=== PATIENT | female | born 1985 | race Caucasian/White ===

== ENCOUNTER 2019-05-21 10:22 | Inpatient (IN) | payer MEDICARE, OTHER, SELFPAY ==
[2019-05-21] VITALS (15 sets, daily range): BP systolic 113–142; BP diastolic 54–94; PULSE 83–117; RESP 11–23; TEMP 36.3–37.3; O2SAT 94–100; BMI 28.0
--- NOTE | 2019-05-21 | PATH_ITS ---
[facility] Accession Number: [id number] . 01 Material submitted: . appendix - APPENDIX . 01 Clinical history: . APPENDICITIS POSSIBLE . 02 Diagnosis: Appendix, Appendectomy: Acute suppurative appendicitis with transmural necrosis and serositis. Negative for dysplasia and malignancy. MRV 05/26/2019 1020 Local . 02 Electronically signed: . Margareth Dunn MD, Pathologist NPI- [id number] . 01 Gross description: . Received in formalin, labeled appendix, is an apparently ruptured appendix (length-6.5 cm, diameter-0.9 cm) with burgos, partially exudate-covered, and eroded serosa with attached mesoappendix (up to 1.0 cm in depth). The resection margin is received stapled. The lumen contains brown solid soft material. The wall is up to 0.2 cm thick. No nodules, masses or lesions are identified. The resection margin is inked blue. Section code: (A1) resection margin en face and three surgical sales representative serial sections; (A2) one-half of the bivalved tip. ([id number]) /MRV 05/23/2019 1145 Local . 02 Pathologist provided ICD-10: K35.20 . 02 CPT . 331124 Performed at: 01 [facility] [address], [place], [place] [id number] MD Dionisio Barajas MD Phone: [phone] Performed at: 02 [facility] [address] [place], [place] [id number] MD Margareth Dunn MD Phone: [phone]
[2019-05-21 12:13] LABS: Add Manual Diff / Slide Review NO; Basophils Absolute Auto 100 /uL (0-100); Basophils Percent Auto 0.3 % (0-2); Eosinophils Absolute Auto 0 /uL (0-450); Eosinophils Percent Auto 0.1 % (2-4); Hematocrit 39.7 % (36-46); Hemoglobin 12.9 g/dL (12.0-16.0); Lymphocytes Absolute Auto 600 /uL (1100-4500); Lymphocytes Percent Auto 2.7 % (25-40); Mean Corpuscular HGB Conc 32.4 % (30-36); Mean Corpuscular Hemoglobin 27.3 PG (26-34); Mean Corpuscular Volume 84.1 fL (80-100); Monocytes Absolute Auto 800 /uL (0-900); Monocytes Percent Auto 3.9 % (3-14); Neutrophils Absolute Auto 20000 /uL (1500-7000); Platelet Count 321 X10^3/uL (150-400); Red Blood Cell Count 4.73 X10^6/uL (4.0-5.2); Red Cell Distribution Width 13.8 % (11.6-14.8); White Blood Cell Count 21.5 X10^3/uL (4.5-11.0)
[2019-05-21 12:17] LABS: INR 1.3 (0.9-1.3); Prothrombin Time 14.8 SECONDS (10.1-12.7)
[2019-05-21 12:20] LABS: PTT Partial Thromboplastin Tim 31 SECONDS (26.4-36.2)
[2019-05-21 12:22] LABS: Alanine Aminotransferase 10 IU/L (<35); Albumin 4.3 g/dL (3.5-5.0); Albumin Globulin Ratio 1.5 (1.0-2.8); Alkaline Phosphatase 105 U/L (38-126); Aspartate Aminotransferase 17 IU/L (14-36); Bilirubin Total 0.5 mg/dL (0.2-1.3); Blood Urea Nitrogen 7 mg/dL (7-17); Calcium 9.2 mg/dL (8.4-10.2); Carbon Dioxide 23 mmol/L (22-32); Chloride 107 mmol/L (98-107); Estimated Glomerular Filt Rate > 60.0 mL/min (>60); Globulin 2.9 g/dL (1.7-4.1); Glucose 130 mg/dL (70-100); HEMOLYSIS < 15 (0-50); Lipase 47 U/L (23-300); Potassium 3.5 mmol/L (3.4-5.1); Sodium 141 mmol/L (137-145); Total Protein 7.2 g/dL (6.3-8.2)
--- NOTE | 2019-05-21 12:46 | DI.CT.S_ITS ---
PROCEDURE: CT ABDOMEN PELVIS W CON INDICATIONS: RLQ pain, vomiting, high WBC TECHNIQUE: After the administration of intravenous contrast, 5 mm thick sections acquired from the diaphragm to the symphysis. 5 mm coronal and sagittal reformats were acquired. For radiation dose reduction, the following was used: automated exposure control, adjustment of mA and/or kV according to patient size. COMPARISON: None. FINDINGS: Image quality: Excellent. ABDOMEN: Lung bases: Lung bases are clear. Heart size is normal. Solid organs: Liver is normal in size and enhancement. Gallbladder is surgically absent. Biliary system is non dilated. Pancreas enhances normally. Spleen is normal in size and enhancement. No adrenal nodules. Kidneys demonstrate normal size and enhancement, without hydronephrosis. Peritoneum and bowel: Post surgical changes compatible with prior gastric bypass procedure noted. Bowel loops demonstrate normal wall thickness and caliber. The fetus is enlarged 1.6 cm. There is a 0.5 x 0.9 cm appendicolith in the appendix. Inflammatory changes and free fluid noted adjacent to the appendix. Small amount of free fluid in the cul-de-sac of the pelvis. No definite free intraperitoneal air. Nodes and vessels: No retroperitoneal or mesenteric adenopathy by size criteria. Aorta and inferior vena cava are normal in size. Miscellaneous: No ventral hernias. PELVIS: Genitourinary: Bladder wall thickness is normal. Miscellaneous: No inguinal hernias or adenopathy. Bones: No suspicious bony lesions. No vertebral body compression fractures. IMPRESSION: 1. Findings compatible with acute appendicitis. There is a large appendicolith within the dilated/inflamed appendix. 2. Moderate amount of free fluid in the right lower quadrant in the region of appendicitis. Dictated by: Nova Baltazar MD, PhD on 05/21/2019 at 14:03 Approved by: Nova Baltazar MD, PhD on 05/21/2019 at 14:09
[2019-05-21] MEDS: ONDANSETRON 4 MG/2 ML INJ IV ×2 (13:09→18:08)
[2019-05-21] MEDS: SODIUM CHLORIDE 0.9% 500 ML 1000 ML IV (13:10)
[2019-05-21] MEDS: KETOROLAC 60 MG/2 ML VIAL 30 MG IV (13:10)
[2019-05-21 13:11] LABS: Pregnancy Test Serum,Qual Negative (Negative)
[2019-05-21 13:12] LABS: Lactate (Lactic Acid) 1.2 mmol/L (0.7-2.1)
[2019-05-21 13:53] LABS: Bacteria Urine None Seen; WBC Urine None Seen (0-5/HPF)
[2019-05-21 14:01] LABS: RBC Urine 5-10/HPF (0-5/HPF)
[2019-05-21 14:02] LABS: Culture Indicated Urine Cult Not Indicated; Mucus Urine 1+ (Negative); Squamous Epithelial Cell Urine 1-5 /HPF (0-5/HPF)
--- NOTE | 2019-05-21 14:16 | ED.ABDPAIN ---
HPI - Abdominal Pain <Los GUIDO Palma - Last Filed: 05/21/19 16:24> General Chief Complaint: Abdominal Pain Stated Complaint: appendicitis possible Time Seen by Provider: 05/21/19 12:14 Source: patient Mode of arrival: Ambulatory Limitations: no limitations History of Present Illness HPI narrative: This is a 34-year-old female, nonsmoker, who presents to ED with right lower quadrant pain for 3 days. Patient has a history of cholecystectomy, right-sided PCOS, kidney stone and gastric bypass. Patient reports nausea, vomiting, diarrhea, chills, feeling sweaty, dizziness. Patient is unsure of fever. Patient reports had 3 episodes of emesis and 6 episodes of diarrhea since she had checked in to ER today. Patient denies blood in stool or emesis and emesis is like bile-like. Patient reports significantly decreased urinary output for last couple of days due to feeling dehydrated. Patient denies other urinary symptoms or unusual vaginal discharge Patient reports pain increases with movement and picking up her toddler son. Patient denies ill contacts. LMP was 04/23/2019 and currently receives Depo injection and last injection was05/01/19. Related Data Home Medications Medication Instructions Recorded Confirmed Mynatal 1 cap PO DAILY #0 07/10/17 05/21/19 cholecalciferol (vitamin D3) 0 unit PO DAILY #0 07/10/17 05/21/19 [Vitamin D3] diphenhydramine HCl [Benadryl 25 mg PO PRN PRN #0 07/10/17 05/21/19 Allergy] docusate sodium 100 mg PO BIDP PRN #0 07/10/17 05/21/19 montelukast [Singulair] 10 mg PO DAILY #0 07/10/17 05/21/19 ondansetron HCl 4 mg PO Q4HP PRN #0 07/10/17 05/21/19 pantoprazole [Protonix] 20 mg PO DAILY #0 07/10/17 05/21/19 simethicone [Gas-X Extra Strength] 125 mg PO PRN PRN #0 07/10/17 05/21/19 vitamin B complex [B 1 tab PO DAILY #0 07/10/17 05/21/19 Complex-Vitamin B12] brexpiprazole [Rexulti] 1 mg PO DAILY 05/21/19 05/21/19 diazepam 5 mg PO TID PRN 05/21/19 05/21/19 fluoxetine 40 mg PO QPM 05/21/19 05/21/19 oxcarbazepine 300 mg PO QPM 05/21/19 05/21/19 Allergies Allergy/AdvReac Type Severity Reaction Status Date / Time aripiprazole [From ABILIFY] Allergy Intermediate Verified 05/21/19 10:34 carbamazepine [From TEGRETOL] Allergy Intermediate Verified 05/21/19 10:34 divalproex sodium Allergy Intermediate Verified 05/21/19 10:34 [From DEPAKOTE] lithium [LITHIUM] Allergy Intermediate Verified 05/21/19 10:34 lurasidone [From LATUDA] Allergy Intermediate Verified 05/21/19 10:34 morphine [MORPHINE] Allergy Intermediate Verified 05/21/19 10:34 sulfamethoxazole Allergy Intermediate Verified 05/21/19 10:34 [From BACTRIM] tramadol [TRAMADOL] Allergy Intermediate Verified 05/21/19 10:34 trimethoprim [From BACTRIM] Allergy Intermediate Verified 05/21/19 10:34 Review of Systems <GUIDO Ramírez - Last Filed: 05/21/19 16:24> Review of Systems Narrative: General: See HPI HEENT: Denies sinus pain, ear pain, sore throat, difficulty swallowing, dizziness. Respiratory: Denies dyspnea, cough, wheezing, hemoptysis, sputum. Cardiovascular: Denies chest pain, palpitations, orthopnea, edema. Gastrointestinal: See HPI : Reports decreased urine output. Denies dysuria, frequency, incontinence, hematuria, urinary retention. Musculoskeletal: Denies weakness, joint pain or bony pain. Skin: Denies rash, skin lesions, or other. Neurologic: Denies weakness, headache, numbness, change in speech, confusion, seizures, incoordination. Psychiatric: No concerning psychosocial issues. 12-point review of systems is negative except for those stated above. Patient History <GUIDO Ramírez - Last Filed: 05/21/19 16:24> Medical History delivery delivered (Acute) Epilepsy (Acute) Surgical History Gastric bypass status for obesity (Acute) Hx of cholecystectomy (Acute) Social History (Updated 05/21/19 @ 14:32 by GUIDO Ramírez) household members: children Smoking Status: Former smoker alcohol intake: current Exam <GUIDO Ramírez - Last Filed: 05/21/19 16:24> Narrative Exam Narrative: GEN: Alert, oriented x 3, well appearing and nourished, and in no acute distress. Head: Normal cephalic, atraumatic. No scalp or temporal tenderness, palpable mass or rash. EYES: Pupils are equal, round, and reactive to light and accommodation. Extraocular muscles are intact bilaterally. There is no subconjunctival hemorrhage, exudate and sclera non-icteric. ENT: Bilateral auditory canals and tympanic membranes clear. Hearing grossly intact. Nose without bleeding, purulent discharge or deviation. Facial sinuses nontender to palpate. Mucous membrane moist, no mucosal lesion. Throat without erythema, tonsillar hypertrophy or exudate. Uvula in midline, airway patent. Neck: Trachea in midline. No JVD, non-tender without lymphadenopathy. No masses or thyroid megaly. Supple, non-tender and no meningeal signs. CARDIAC: Normal regular rate and rhythm without murmurs, gallops, or rubs. No chest wall tenderness. No peripheral edema, cyanosis or pallor. Capillary refill is less than 2 seconds. RESPIRATORY: Lungs are clear to auscultate bilaterally. No cough, wheezes, rales, or rhonchi. No stridor, respiratory distress, increase work of breathing, or accessary muscle used. ABD: Abdomen soft and non-distended. Guarding and rebound tenderness to palpate in RLQ. Negative Mendez's sign. Bowel sounds are normal in all 4 quadrants. There is no palpable masses or organomegaly. EXT: Full painless ROM of all extremities with no loss of sensation, strength, effusion or edema. SKIN: Warm, dry, normal color for patient. No erythema, lesions or rash over visible areas. BACK: Nontender without deformity or crepitance. No flank tenderness. NEUROLOGICAL: Alert and oriented to place, time and person. Sensation and motor function intact bilaterally. No facial droops, dysphasia. PSYCHIATRIC: Good judgement and reason, without hallucinations, abnormal affect or abnormal behaviors during the examination. Patient is not suicidal. Initial Vital Signs Initial Vital Signs: Vital Signs Temperature 98.0 F 05/21/19 10:34 Pulse Rate 111 H 05/21/19 10:34 Respiratory Rate 16 05/21/19 10:34 Blood Pressure 132/94 H 05/21/19 10:34 Pulse Oximetry 100 05/21/19 10:34 <Maricarmen Obrien MD - Last Filed: 05/21/19 19:00> Initial Vital Signs Initial Vital Signs: Vital Signs Temperature 98.0 F 05/21/19 10:34 Pulse Rate 111 H 05/21/19 10:34 Respiratory Rate 16 05/21/19 10:34 Blood Pressure 132/94 H 05/21/19 10:34 Pulse Oximetry 100 05/21/19 10:34 Course <GUIDO Ramírez - Last Filed: 05/21/19 16:24> Course Course Narrative: Radiologist called to inform the CT result for concerning appy at 1407 Orders Ordered: ED Orders 05/21/19 10:35 EKG-12 Lead Stat 05/21/19 12:05 Complete Blood Count AUTO DIFF Stat Comprehensive Metabolic Panel Stat Lactate (Lactic Acid) Stat Lipase Stat Partial Thromboplastin Time Stat Test Serum,Qual Stat Prothrombin Time INR Stat 05/21/19 12:46 CT abdomen pelvis w con Stat 05/21/19 13:00 GI Panel (Film Array) Stat Urine Microscopic Stat 05/21/19 15:38 Consult to SEXOLOGIST - Oil Processing Technician Stat 05/21/19 17:49 Education, smoking cessation ONGOING 05/22/19 05:00 BMP [Basic Metabolic Panel] DAILY CBC Auto Diff [Complete Blood Count AUTO DIFF] DAILY Magnesium DAILY 05/23/19 05:00 BMP [Basic Metabolic Panel] DAILY CBC Auto Diff [Complete Blood Count AUTO DIFF] DAILY Magnesium DAILY 05/24/19 05:00 BMP [Basic Metabolic Panel] DAILY CBC Auto Diff [Complete Blood Count AUTO DIFF] DAILY Magnesium DAILY Diazepam (Valium) 5 mg PO TID PRN PRN Reason: Anxiety Docusate Sodium (Colace) 100 mg PO BID PRN PRN Reason: Constipation Duloxetine HCl (Cymbalta) 30 mg PO DAILY MICAELA Fluoxetine HCl (Prozac) 40 mg PO BEDTIME MICAELA Hydromorphone HCl (Dilaudid) 0.5 mg IV Q4H PRN PRN Reason: Pain, Moderate (4-6) Hydromorphone HCl (Dilaudid) 1 mg IV Q6HR PRN PRN Reason: Pain, Severe (7-10) Last Admin: 05/21/19 18:08 Dose: 1 mg Documented by: PRISCILLA Lactated Ringer's (Lactated Ringers) 1,000 mls @ 100 mls/hr IV CONT MICAELA Last Admin: 05/21/19 18:16 Dose: 100 mls/hr Documented by: PRISCILLA Lamotrigine (Lamictal) 100 mg PO BID MICAELA Montelukast Sodium (Singulair) 10 mg PO DAILY MICAELA Nf - Brexpiprazole ( (Rexulti) 1 Mg) 1 mg PO DAILY MICAELA Ondansetron HCl (Zofran) 4 mg IV Q4HR PRN PRN Reason: Nausea And Vomiting Last Admin: 05/21/19 18:08 Dose: 4 mg Documented by: PRISCILLA Oxcarbazepine (Trileptal) 300 mg PO BEDTIME MICAELA Pantoprazole Sodium (Protonix) 20 mg PO DAILY MICAELA Discontinued Medications Fluoxetine HCl (Prozac) 40 mg PO QPM MICAELA Hydromorphone HCl (Dilaudid) 0.5 mg IV NOW ONE Stop: 05/21/19 14:18 Last Admin: 05/21/19 14:30 Dose: 0.5 mg Documented by: AURORA Hydromorphone HCl (Dilaudid) 1 mg IV Q6HR PRN PRN Reason: Pain, Severe (7-10) Sodium Chloride (Normal Saline 0.9%) 500 mls @ 1,000 mls/hr IV BOLUS ONE Stop: 05/21/19 13:15 Last Infusion: 05/21/19 14:01 Dose: 0 mls/hr Documented by: Admin: 05/21/19 13:10 Dose: 1,000 mls/hr Documented by: AURORA Piperacillin/Tazobactam/Dextrose (Zosyn) 3.375 gm in 50 mls @ 100 mls/hr IV NOW ONE Stop: 05/21/19 15:20 Last Admin: 05/21/19 15:04 Dose: 100 mls/hr Documented by: AURORA Sodium Chloride (Normal Saline 0.9%) 1,000 mls @ 150 mls/hr IV CONT MICAELA Last Infusion: 05/21/19 18:17 Dose: 0 mls/hr Documented by: Admin: 05/21/19 15:04 Dose: 150 mls/hr Documented by: AURORA Ketorolac Tromethamine (Toradol) 30 mg IV NOW ONE Stop: 05/21/19 12:47 Last Admin: 05/21/19 13:10 Dose: 30 mg Documented by: AURORA Ondansetron HCl (Zofran) 4 mg IV NOW ONE Stop: 05/21/19 12:47 Last Admin: 05/21/19 13:09 Dose: 4 mg Documented by: AURORA Ondansetron HCl (Zofran Odt) 4 mg PO Q4H PRN PRN Reason: Nausea Oxcarbazepine (Trileptal) 300 mg PO QPM COUNTS INCLUDE 234 BEDS AT [facility] Reevaluation(s) Reevaluation #1: Improved nausea but pain still remaining Time: 13:55 Consultations Consultation #1: Dr. Sanchez for [facility] Time: 14:07 Vital Signs Vital signs: Vital Signs - 8 hr 05/21/19 11:58 05/21/19 14:12 05/21/19 15:05 Pulse Rate 83 87 87 Respiratory Rate 16 23 18 Blood Pressure [Left Arm] 113/54 L 130/72 134/84 Pulse Oximetry 100 98 99 <Maricarmen Obrien MD - Last Filed: 05/21/19 19:00> Orders Ordered: ED Orders 05/21/19 10:35 EKG-12 Lead Stat 05/21/19 12:05 Complete Blood Count AUTO DIFF Stat Comprehensive Metabolic Panel Stat Lactate (Lactic Acid) Stat Lipase Stat Partial Thromboplastin Time Stat Test Serum,Qual Stat Prothrombin Time INR Stat 05/21/19 12:46 CT abdomen pelvis w con Stat 05/21/19 13:00 GI Panel (Film Array) Stat Urine Microscopic Stat 05/21/19 15:38 Consult to SEXOLOGIST - Oil Processing Technician Stat 05/21/19 17:49 Education, smoking cessation ONGOING 05/22/19 05:00 BMP [Basic Metabolic Panel] DAILY CBC Auto Diff [Complete Blood Count AUTO DIFF] DAILY Magnesium DAILY 05/23/19 05:00 BMP [Basic Metabolic Panel] DAILY CBC Auto Diff [Complete Blood Count AUTO DIFF] DAILY Magnesium DAILY 05/24/19 05:00 BMP [Basic Metabolic Panel] DAILY CBC Auto Diff [Complete Blood Count AUTO DIFF] DAILY Magnesium DAILY Diazepam (Valium) 5 mg PO TID PRN PRN Reason: Anxiety Docusate Sodium (Colace) 100 mg PO BID PRN PRN Reason: Constipation Duloxetine HCl (Cymbalta) 30 mg PO DAILY MICAELA Fluoxetine HCl (Prozac) 40 mg PO BEDTIME MICAELA Hydromorphone HCl (Dilaudid) 0.5 mg IV Q4H PRN PRN Reason: Pain, Moderate (4-6) Hydromorphone HCl (Dilaudid) 1 mg IV Q6HR PRN PRN Reason: Pain, Severe (7-10) Last Admin: 05/21/19 18:08 Dose: 1 mg Documented by: PRISCILLA Lactated Ringer's (Lactated Ringers) 1,000 mls @ 100 mls/hr IV CONT MICAELA Last Admin: 05/21/19 18:16 Dose: 100 mls/hr Documented by: PRISCILLA Lamotrigine (Lamictal) 100 mg PO BID MICAELA Montelukast Sodium (Singulair) 10 mg PO DAILY MICAELA Nf - Brexpiprazole ( (Rexulti) 1 Mg) 1 mg PO DAILY MICAELA Ondansetron HCl (Zofran) 4 mg IV Q4HR PRN PRN Reason: Nausea And Vomiting Last Admin: 05/21/19 18:08 Dose: 4 mg Documented by: PRISCILLA Oxcarbazepine (Trileptal) 300 mg PO BEDTIME MICAELA Pantoprazole Sodium (Protonix) 20 mg PO DAILY MICAELA Discontinued Medications Fluoxetine HCl (Prozac) 40 mg PO QPM MICAELA Hydromorphone HCl (Dilaudid) 0.5 mg IV NOW ONE Stop: 05/21/19 14:18 Last Admin: 05/21/19 14:30 Dose: 0.5 mg Documented by: AURORA Hydromorphone HCl (Dilaudid) 1 mg IV Q6HR PRN PRN Reason: Pain, Severe (7-10) Sodium Chloride (Normal Saline 0.9%) 500 mls @ 1,000 mls/hr IV BOLUS ONE Stop: 05/21/19 13:15 Last Infusion: 05/21/19 14:01 Dose: 0 mls/hr Documented by: Admin: 12/04/19 13:10 Dose: 1,000 mls/hr Documented by: AURORA Piperacillin/Tazobactam/Dextrose (Zosyn) 3.375 gm in 50 mls @ 100 mls/hr IV NOW ONE Stop: 05/21/19 15:20 Last Admin: 05/21/19 15:04 Dose: 100 mls/hr Documented by: AURORA Sodium Chloride (Normal Saline 0.9%) 1,000 mls @ 150 mls/hr IV CONT MICAELA Last Infusion: 05/21/19 18:17 Dose: 0 mls/hr Documented by: Admin: 05/21/19 15:04 Dose: 150 mls/hr Documented by: AURORA Ketorolac Tromethamine (Toradol) 30 mg IV NOW ONE Stop: 05/21/19 12:47 Last Admin: 05/21/19 13:10 Dose: 30 mg Documented by: AURORA Ondansetron HCl (Zofran) 4 mg IV NOW ONE Stop: 05/21/19 12:47 Last Admin: 05/21/19 13:09 Dose: 4 mg Documented by: ARUORA Ondansetron HCl (Zofran Odt) 4 mg PO Q4H PRN PRN Reason: Nausea Oxcarbazepine (Trileptal) 300 mg PO QPM COUNTS INCLUDE 234 BEDS AT THE [facility] Vital Signs Vital signs: Vital Signs - 8 hr 05/21/19 11:58 05/21/19 14:12 05/21/19 15:05 Pulse Rate 83 87 87 Respiratory Rate 16 23 18 Blood Pressure [Left Arm] 113/54 L 130/72 134/84 Pulse Oximetry 100 98 99 MDM - Abdominal Pain <Los GUIDO Palma - Last Filed: 05/21/19 16:24> Differential Diagnosis Differential diagnosis: Likely acute appendicitis and other (ovarian cyst, renal stone) Medical Records Attestation: I reviewed the patient's medical records. Lab Data Attestation: I reviewed the patient's lab results. Result diagrams: 05/21/19 12:05 05/21/19 12:05 Labs: Lab Results 05/21/19 05/21/19 05/21/19 Range/Units 12:05 12:05 12:05 WBC 21.5 H (4.5-11.0) X10^3/uL RBC 4.73 (4.0-5.2) X10^6/uL Hgb 12.9 (12.0-16.0) g/dL Hct 39.7 (36-46) % MCV 84.1 (80-100) fL MCH 27.3 (26-34) PG MCHC 32.4 (30-36) % RDW 13.8 (11.6-14.8) % Plt Count 321 (150-400) X10^3/uL Neut % (Auto) 93.0 H (50-75) % Lymph % (Auto) 2.7 L (25-40) % Boyle % (Auto) 3.9 (3-14) % Eos % (Auto) 0.1 L (2-4) % Baso % (Auto) 0.3 (0-2) % Neut # (Auto) 92428 H (8741-7796) /uL Lymph # (Auto) 600 L (8574-8012) /uL Boyle # (Auto) 800 (0-900) /uL Eos # (Auto) 0 (0-450) /uL Baso # (Auto) 100 (0-100) /uL PT 14.8 H (10.1-12.7) SECONDS INR 1.3 (0.9-1.3) APTT 31 (26.4-36.2) SECONDS Sodium 141 (137-145) mmol/L Potassium 3.5 (3.4-5.1) mmol/L Chloride 107 (98-107) mmol/L Carbon Dioxide 23 (22-32) mmol/L BUN 7 (7-17) mg/dL Creatinine 0.70 (0.52-1.04) mg/dL Estimated GFR > 60.0 (>60) mL/min BUN/Creatinine Ratio 10.0 (6-22) Glucose 130 H (70-100) mg/dL Lactate (0.7-2.1) mmol/L Calcium 9.2 (8.4-10.2) mg/dL Total Bilirubin 0.5 (0.2-1.3) mg/dL AST 17 (14-36) IU/L ALT 10 (<35) IU/L Alkaline Phosphatase 105 (38-126) U/L Total Protein 7.2 (6.3-8.2) g/dL Albumin 4.3 (3.5-5.0) g/dL Globulin 2.9 (1.7-4.1) g/dL Albumin/Globulin Ratio 1.5 (1.0-2.8) Lipase 47 (23-300) U/L Serum , Qual (Negative) Urine RBC (0-5/HPF) Urine WBC (0-5/HPF) Ur Squamous Epith Cells (0-5/HPF) Urine Bacteria (None) Urine Mucus (Negative) Ur Culture Indicated? Stl C. cayetanensis PCR (Not Detect) Stool Rotavirus (PCR) (Not Detect) Stool Adenovirus (PCR) (Not Detect) Stool Astrovirus (PCR) (Not Detect) Stool Cryptosporidium PCR (Not Detect) Stl E.coli Shiga Tox PCR (Not Detect) St Sh/Enteroin Ecoli PCR (Not Detect) Stool E coli O157 PCR Stl Enterotoxigenic E PCR (Not Detect) Stool EPEC (PCR) (Not Detect) Stl E. histolytica PCR (Not Detect) Stool Giardia Lamblia PCR (Not Detect) Stool Sapovirus (PCR) (Not Detect) Stl P. shigelloides PCR (Not Detect) St Y.enterocolitica PCR (Not Detect) Stool Vibrio (PCR) (Not Detect) Stl Vibrio cholerae PCR (Not Detect) Stl Enteroaggr Ecoli PCR (Not Detect) Stl Norovirus GI/GII PCR (Not Detect) Campylobacter (PCR) (Not Detect) C. difficile Tox (PCR) (Not Detect) Salmonella (PCR) (Not Detect) 05/21/19 05/21/19 05/21/19 Range/Units 12:05 12:05 13:00 WBC (4.5-11.0) X10^3/uL RBC (4.0-5.2) X10^6/uL Hgb (12.0-16.0) g/dL Hct (36-46) % MCV (80-100) fL MCH (26-34) PG MCHC (30-36) % RDW (11.6-14.8) % Plt Count (150-400) X10^3/uL Neut % (Auto) (50-75) % Lymph % (Auto) (25-40) % Boyle % (Auto) (3-14) % Eos % (Auto) (2-4) % Baso % (Auto) (0-2) % Neut # (Auto) (6856-8968) /uL Lymph # (Auto) (8992-8864) /uL Boyle # (Auto) (0-900) /uL Eos # (Auto) (0-450) /uL Baso # (Auto) (0-100) /uL PT (10.1-12.7) SECONDS INR (0.9-1.3) APTT (26.4-36.2) SECONDS Sodium (137-145) mmol/L Potassium (3.4-5.1) mmol/L Chloride (98-107) mmol/L Carbon Dioxide (22-32) mmol/L BUN (7-17) mg/dL Creatinine (0.52-1.04) mg/dL Estimated GFR (>60) mL/min BUN/Creatinine Ratio (6-22) Glucose (70-100) mg/dL Lactate 1.2 (0.7-2.1) mmol/L Calcium (8.4-10.2) mg/dL Total Bilirubin (0.2-1.3) mg/dL AST (14-36) IU/L ALT (<35) IU/L Alkaline Phosphatase (38-126) U/L Total Protein (6.3-8.2) g/dL Albumin (3.5-5.0) g/dL Globulin (1.7-4.1) g/dL Albumin/Globulin Ratio (1.0-2.8) Lipase (23-300) U/L Serum , Qual Negative (Negative) Urine RBC (0-5/HPF) Urine WBC (0-5/HPF) Ur Squamous Epith Cells (0-5/HPF) Urine Bacteria (None) Urine Mucus (Negative) Ur Culture Indicated? Stl C. cayetanensis PCR Not detected (Not Detect) Stool Rotavirus (PCR) Not detected (Not Detect) Stool Adenovirus (PCR) Not detected (Not Detect) Stool Astrovirus (PCR) Not detected (Not Detect) Stool Cryptosporidium PCR Not detected (Not Detect) Stl E.coli Shiga Tox PCR Not detected (Not Detect) St Sh/Enteroin Ecoli PCR Not detected (Not Detect) Stool E coli O157 PCR Not Reportable Stl Enterotoxigenic E PCR Not detected (Not Detect) Stool EPEC (PCR) Not detected (Not Detect) Stl E. histolytica PCR Not detected (Not Detect) Stool Giardia Lamblia PCR Not detected (Not Detect) Stool Sapovirus (PCR) Not detected (Not Detect) Stl P. shigelloides PCR Not detected (Not Detect) St Y.enterocolitica PCR Not detected (Not Detect) Stool Vibrio (PCR) Not detected (Not Detect) Stl Vibrio cholerae PCR Not detected (Not Detect) Stl Enteroaggr Ecoli PCR Not detected (Not Detect) Stl Norovirus GI/GII PCR Not detected (Not Detect) Campylobacter (PCR) Not detected (Not Detect) C. difficile Tox (PCR) Not detected (Not Detect) Salmonella (PCR) Not detected (Not Detect) 05/21/19 Range/Units 13:00 WBC (4.5-11.0) X10^3/uL RBC (4.0-5.2) X10^6/uL Hgb (12.0-16.0) g/dL Hct (36-46) % MCV (80-100) fL MCH (26-34) PG MCHC (30-36) % RDW (11.6-14.8) % Plt Count (150-400) X10^3/uL Neut % (Auto) (50-75) % Lymph % (Auto) (25-40) % Boyle % (Auto) (3-14) % Eos % (Auto) (2-4) % Baso % (Auto) (0-2) % Neut # (Auto) (6221-1097) /uL Lymph # (Auto) (7562-9958) /uL Boyle # (Auto) (0-900) /uL Eos # (Auto) (0-450) /uL Baso # (Auto) (0-100) /uL PT (10.1-12.7) SECONDS INR (0.9-1.3) APTT (26.4-36.2) SECONDS Sodium (137-145) mmol/L Potassium (3.4-5.1) mmol/L Chloride (98-107) mmol/L Carbon Dioxide (22-32) mmol/L BUN (7-17) mg/dL Creatinine (0.52-1.04) mg/dL Estimated GFR (>60) mL/min BUN/Creatinine Ratio (6-22) Glucose (70-100) mg/dL Lactate (0.7-2.1) mmol/L Calcium (8.4-10.2) mg/dL Total Bilirubin (0.2-1.3) mg/dL AST (14-36) IU/L ALT (<35) IU/L Alkaline Phosphatase (38-126) U/L Total Protein (6.3-8.2) g/dL Albumin (3.5-5.0) g/dL Globulin (1.7-4.1) g/dL Albumin/Globulin Ratio (1.0-2.8) Lipase (23-300) U/L Serum , Qual (Negative) Urine RBC 5-10/hpf H (0-5/HPF) Urine WBC None seen (0-5/HPF) Ur Squamous Epith Cells 1-5 /hpf (0-5/HPF) Urine Bacteria None seen (None) Urine Mucus 1+ H (Negative) Ur Culture Indicated? Cult not indicated Stl C. cayetanensis PCR (Not Detect) Stool Rotavirus (PCR) (Not Detect) Stool Adenovirus (PCR) (Not Detect) Stool Astrovirus (PCR) (Not Detect) Stool Cryptosporidium PCR (Not Detect) Stl E.coli Shiga Tox PCR (Not Detect) St Sh/Enteroin Ecoli PCR (Not Detect) Stool E coli O157 PCR Stl Enterotoxigenic E PCR (Not Detect) Stool EPEC (PCR) (Not Detect) Stl E. histolytica PCR (Not Detect) Stool Giardia Lamblia PCR (Not Detect) Stool Sapovirus (PCR) (Not Detect) Stl P. shigelloides PCR (Not Detect) St Y.enterocolitica PCR (Not Detect) Stool Vibrio (PCR) (Not Detect) Stl Vibrio cholerae PCR (Not Detect) Stl Enteroaggr Ecoli PCR (Not Detect) Stl Norovirus GI/GII PCR (Not Detect) Campylobacter (PCR) (Not Detect) C. difficile Tox (PCR) (Not Detect) Salmonella (PCR) (Not Detect) Point of care testing: Point of Care Testing Test Results Negative Urine Dip Bedside Urine Glucose Negative Bedside Urine Bilirubin - Negative Bedside Urine Ketone +++ 80 Urine Specific [place] 1.020 Bedside Urine Occult Blood + Bedside Urine pH 6.0 Bedside Urine Protein + 30 Bedside Urine Urobilinogen - Negative Bedside Urine Nitrite - Negative Bedside Urine Leukocytes - Negative Esterase Imaging Data CT scan - abdomen: Radiologist's impression: [address] [id number] [address] Scan Report Signed Patient: Amalia Crain EMR#: [id number] : 1985Acct:[id number] Age/Sex: 34 / FDate of Service: 05/21/19 Loc: ED Accession Number: [id number] Procedure: CT abdomen pelvis w con Ordering Provider: [place] PROCEDURE: CT ABDOMEN PELVIS W CON INDICATIONS: RLQ pain, vomiting, high WBC TECHNIQUE: After the administration of intravenous contrast, 5 mm thick sections acquired from the diaphragm to the symphysis. 5 mm coronal and sagittal reformats were acquired. For radiation dose reduction, the following was used: automated exposure control, adjustment of mA and/or kV according to patient size. COMPARISON: None. FINDINGS: Image quality: Excellent. ABDOMEN: Lung bases: Lung bases are clear. Heart size is normal. Solid organs: Liver is normal in size and enhancement. Gallbladder is surgically absent. Biliary system is non dilated. Pancreas enhances normally. Spleen is normal in size and enhancement. No adrenal nodules. Kidneys demonstrate normal size and enhancement, without hydronephrosis. Peritoneum and bowel: Post surgical changes compatible with prior gastric bypass procedure noted. Bowel loops demonstrate normal wall thickness and caliber. The fetus is enlarged 1.6 cm. There is a 0.5 x 0.9 cm appendicolith in the appendix. Inflammatory changes and free fluid noted adjacent to the appendix. Small amount of free fluid in the cul-de-sac of the pelvis. No definite free intraperitoneal air. Nodes and vessels: No retroperitoneal or mesenteric adenopathy by size criteria. Aorta and inferior vena cava are normal in size. Miscellaneous: No ventral hernias. PELVIS: Genitourinary: Bladder wall thickness is normal. Miscellaneous: No inguinal hernias or adenopathy. Bones: No suspicious bony lesions. No vertebral body compression fractures. IMPRESSION: 1. Findings compatible with acute appendicitis. There is a large appendicolith within the dilated/inflamed appendix. 2. Moderate amount of free fluid in the right lower quadrant in the region of appendicitis. Dictated by: Nova Baltazar MD, PhD on 05/21/2019 at 14:03 Approved by: Nova Baltazar MD, PhD on 05/21/2019 at 14:09 ECG Data Attestation: I personally reviewed and interpreted this ECG as follows: Prior ECG tracings: not available for review Interpretation: Sinus rhythm rate at 83. Normal [place]. Nonspecific T wave abnormalty. MDM Narrative Medical decision making narrative: This is a 34-year-old female who presents to ED with right lower quadrant pain for last 3 days with nausea, vomiting, diarrhea, chills. Patient endorses pain worsens with movement. Past surgical history including cholecystectomy, , gastric bypass. Physical exam showed right lower quadrant pain with light palpation, rebound tender she has a toddler child. deployed and ness, and guarding. Patient has leukocytosis as of 21.5 with increase neutrophil. CMP was unremarkable. Urine test was negative for infection. Stool for GI panel was negative. CT abdomen/pelvis shows acute appendicitis with a large appendix coli within the dilated/inflamed appendix with moderate amount of free fluid in right lower quadrant. I have received a phone call from radiologist and have contacted Dr. Sanchez for surgical consult and she graciously accepted patient's care. OR is scheduled to receive patient at 1745. Patient has a social hardship since her 's currently deployed and she has of toddler son to take care of. Patient reports her mother is flying in tomorrow to help taking care of her son but needs someone to help with him tonight. [employer] is contacted for assistance. Patient was medicated initially with Zofran and IV Toradol which improved the pain mildly. In addition, patient was medicated with Dilaudid for recurring right lower quadrant pain which patient tolerated well. Started IV Zosyn while in the ED as Dr. Sanchez's request and tolerated well. Patient reports had reaction to amoxicillin with yeast infection and not true allergy. <Maricarmen Obrien MD - Last Filed: 05/21/19 19:00> Lab Data Labs: Lab Results 05/21/19 05/21/19 05/21/19 Range/Units 12:05 12:05 12:05 WBC 21.5 H (4.5-11.0) X10^3/uL RBC 4.73 (4.0-5.2) X10^6/uL Hgb 12.9 (12.0-16.0) g/dL Hct 39.7 (36-46) % MCV 84.1 (80-100) fL MCH 27.3 (26-34) PG MCHC 32.4 (30-36) % RDW 13.8 (11.6-14.8) % Plt Count 321 (150-400) X10^3/uL Neut % (Auto) 93.0 H (50-75) % Lymph % (Auto) 2.7 L (25-40) % [place] % (Auto) 3.9 (3-14) % Eos % (Auto) 0.1 L (2-4) % Baso % (Auto) 0.3 (0-2) % Neut # (Auto) 77342 H (2341-9124) /uL Lymph # (Auto) 600 L (3642-7263) /uL [place] # (Auto) 800 (0-900) /uL Eos # (Auto) 0 (0-450) /uL Baso # (Auto) 100 (0-100) /uL PT 14.8 H (10.1-12.7) SECONDS INR 1.3 (0.9-1.3) APTT 31 (26.4-36.2) SECONDS Sodium 141 (137-145) mmol/L Potassium 3.5 (3.4-5.1) mmol/L Chloride 107 (98-107) mmol/L Carbon Dioxide 23 (22-32) mmol/L BUN 7 (7-17) mg/dL Creatinine 0.70 (0.52-1.04) mg/dL Estimated GFR > 60.0 (>60) mL/min BUN/Creatinine Ratio 10.0 (6-22) Glucose 130 H (70-100) mg/dL Lactate (0.7-2.1) mmol/L Calcium 9.2 (8.4-10.2) mg/dL Total Bilirubin 0.5 (0.2-1.3) mg/dL AST 17 (14-36) IU/L ALT 10 (<35) IU/L Alkaline Phosphatase 105 (38-126) U/L Total Protein 7.2 (6.3-8.2) g/dL Albumin 4.3 (3.5-5.0) g/dL Globulin 2.9 (1.7-4.1) g/dL Albumin/Globulin Ratio 1.5 (1.0-2.8) Lipase 47 (23-300) U/L Serum , Qual (Negative) Urine RBC (0-5/HPF) Urine WBC (0-5/HPF) Ur Squamous Epith Cells (0-5/HPF) Urine Bacteria (None) Urine Mucus (Negative) Ur Culture Indicated? Stl C. cayetanensis PCR (Not Detect) Stool Rotavirus (PCR) (Not Detect) Stool Adenovirus (PCR) (Not Detect) Stool Astrovirus (PCR) (Not Detect) Stool Cryptosporidium PCR (Not Detect) Stl E.coli Shiga Tox PCR (Not Detect) St Sh/Enteroin Ecoli PCR (Not Detect) Stool E coli O157 PCR Stl Enterotoxigenic E PCR (Not Detect) Stool EPEC (PCR) (Not Detect) Stl E. histolytica PCR (Not Detect) Stool Giardia Lamblia PCR (Not Detect) Stool Sapovirus (PCR) (Not Detect) Stl P. shigelloides PCR (Not Detect) St Y.enterocolitica PCR (Not Detect) Stool Vibrio (PCR) (Not Detect) Stl Vibrio cholerae PCR (Not Detect) Stl Enteroaggr Ecoli PCR (Not Detect) Stl Norovirus GI/GII PCR (Not Detect) Campylobacter (PCR) (Not Detect) C. difficile Tox (PCR) (Not Detect) Salmonella (PCR) (Not Detect) 05/21/19 05/21/19 05/21/19 Range/Units 12:05 12:05 13:00 WBC (4.5-11.0) X10^3/uL RBC (4.0-5.2) X10^6/uL Hgb (12.0-16.0) g/dL Hct (36-46) % MCV (80-100) fL MCH (26-34) PG MCHC (30-36) % RDW (11.6-14.8) % Plt Count (150-400) X10^3/uL Neut % (Auto) (50-75) % Lymph % (Auto) (25-40) % Boyle % (Auto) (3-14) % Eos % (Auto) (2-4) % Baso % (Auto) (0-2) % Neut # (Auto) (4024-1576) /uL Lymph # (Auto) (2068-6563) /uL [place] # (Auto) (0-900) /uL Eos # (Auto) (0-450) /uL Baso # (Auto) (0-100) /uL PT (10.1-12.7) SECONDS INR (0.9-1.3) APTT (26.4-36.2) SECONDS Sodium (137-145) mmol/L Potassium (3.4-5.1) mmol/L Chloride (98-107) mmol/L Carbon Dioxide (22-32) mmol/L BUN (7-17) mg/dL Creatinine (0.52-1.04) mg/dL Estimated GFR (>60) mL/min BUN/Creatinine Ratio (6-22) Glucose (70-100) mg/dL Lactate 1.2 (0.7-2.1) mmol/L Calcium (8.4-10.2) mg/dL Total Bilirubin (0.2-1.3) mg/dL AST (14-36) IU/L ALT (<35) IU/L Alkaline Phosphatase (38-126) U/L Total Protein (6.3-8.2) g/dL Albumin (3.5-5.0) g/dL Globulin (1.7-4.1) g/dL Albumin/Globulin Ratio (1.0-2.8) Lipase (23-300) U/L Serum , Qual Negative (Negative) Urine RBC (0-5/HPF) Urine WBC (0-5/HPF) Ur Squamous Epith Cells (0-5/HPF) Urine Bacteria (None) Urine Mucus (Negative) Ur Culture Indicated? Stl C. cayetanensis PCR Not detected (Not Detect) Stool Rotavirus (PCR) Not detected (Not Detect) Stool Adenovirus (PCR) Not detected (Not Detect) Stool Astrovirus (PCR) Not detected (Not Detect) Stool Cryptosporidium PCR Not detected (Not Detect) Stl E.coli Shiga Tox PCR Not detected (Not Detect) St Sh/Enteroin Ecoli PCR Not detected (Not Detect) Stool E coli O157 PCR Not Reportable Stl Enterotoxigenic E PCR Not detected (Not Detect) Stool EPEC (PCR) Not detected (Not Detect) Stl E. histolytica PCR Not detected (Not Detect) Stool Giardia Lamblia PCR Not detected (Not Detect) Stool Sapovirus (PCR) Not detected (Not Detect) Stl P. shigelloides PCR Not detected (Not Detect) St Y.enterocolitica PCR Not detected (Not Detect) Stool Vibrio (PCR) Not detected (Not Detect) Stl Vibrio cholerae PCR Not detected (Not Detect) Stl Enteroaggr Ecoli PCR Not detected (Not Detect) Stl Norovirus GI/GII PCR Not detected (Not Detect) Campylobacter (PCR) Not detected (Not Detect) C. difficile Tox (PCR) Not detected (Not Detect) Salmonella (PCR) Not detected (Not Detect) 05/21/19 Range/Units 13:00 WBC (4.5-11.0) X10^3/uL RBC (4.0-5.2) X10^6/uL Hgb (12.0-16.0) g/dL Hct (36-46) % MCV (80-100) fL MCH (26-34) PG MCHC (30-36) % RDW (11.6-14.8) % Plt Count (150-400) X10^3/uL Neut % (Auto) (50-75) % Lymph % (Auto) (25-40) % Boyle % (Auto) (3-14) % Eos % (Auto) (2-4) % Baso % (Auto) (0-2) % Neut # (Auto) (8540-4015) /uL Lymph # (Auto) (1089-0121) /uL [place] # (Auto) (0-900) /uL Eos # (Auto) (0-450) /uL Baso # (Auto) (0-100) /uL PT (10.1-12.7) SECONDS INR (0.9-1.3) APTT (26.4-36.2) SECONDS Sodium (137-145) mmol/L Potassium (3.4-5.1) mmol/L Chloride (98-107) mmol/L Carbon Dioxide (22-32) mmol/L BUN (7-17) mg/dL Creatinine (0.52-1.04) mg/dL Estimated GFR (>60) mL/min BUN/Creatinine Ratio (6-22) Glucose (70-100) mg/dL Lactate (0.7-2.1) mmol/L Calcium (8.4-10.2) mg/dL Total Bilirubin (0.2-1.3) mg/dL AST (14-36) IU/L ALT (<35) IU/L Alkaline Phosphatase (38-126) U/L Total Protein (6.3-8.2) g/dL Albumin (3.5-5.0) g/dL Globulin (1.7-4.1) g/dL Albumin/Globulin Ratio (1.0-2.8) Lipase (23-300) U/L Serum , Qual (Negative) Urine RBC 5-10/hpf H (0-5/HPF) Urine WBC None seen (0-5/HPF) Ur Squamous Epith Cells 1-5 /hpf (0-5/HPF) Urine Bacteria None seen (None) Urine Mucus 1+ H (Negative) Ur Culture Indicated? Cult not indicated Stl C. cayetanensis PCR (Not Detect) Stool Rotavirus (PCR) (Not Detect) Stool Adenovirus (PCR) (Not Detect) Stool Astrovirus (PCR) (Not Detect) Stool Cryptosporidium PCR (Not Detect) Stl E.coli Shiga Tox PCR (Not Detect) St Sh/Enteroin Ecoli PCR (Not Detect) Stool E coli O157 PCR Stl Enterotoxigenic E PCR (Not Detect) Stool EPEC (PCR) (Not Detect) Stl E. histolytica PCR (Not Detect) Stool Giardia Lamblia PCR (Not Detect) Stool Sapovirus (PCR) (Not Detect) Stl P. shigelloides PCR (Not Detect) St Y.enterocolitica PCR (Not Detect) Stool Vibrio (PCR) (Not Detect) Stl Vibrio cholerae PCR (Not Detect) Stl Enteroaggr Ecoli PCR (Not Detect) Stl Norovirus GI/GII PCR (Not Detect) Campylobacter (PCR) (Not Detect) C. difficile Tox (PCR) (Not Detect) Salmonella (PCR) (Not Detect) Point of care testing: Point of Care Testing Test Results Negative Urine Dip Bedside Urine Glucose Negative Bedside Urine Bilirubin - Negative Bedside Urine Ketone +++ 80 Urine Specific [place] 1.020 Bedside Urine Occult Blood + Bedside Urine pH 6.0 Bedside Urine Protein + 30 Bedside Urine Urobilinogen - Negative Bedside Urine Nitrite - Negative Bedside Urine Leukocytes - Negative Esterase Discharge Plan Departure Patient Disposition: Admitted As Inpatient Clinical Impression: Acute appendicitis Qualifiers: Acute appendicitis type: unspecified acute appendicitis type Qualified Code(s): K35.80 - Unspecified acute appendicitis Discharge Date/Time: 05/21/19 16:20 Admit Date/Time: 05/21/19 15:56 Admit Provider: Jamilah Sanchez
[2019-05-21] MEDS: HYDROMORPHONE 0.5 MG INJ IV (14:30)
--- NOTE | 2019-05-21 14:52 | PM.HP.1 ---
History of Present Illness History of Present Illness Date Patient Seen: 05/21/19 Time Patient Seen: 14:52 Chief complaint: appendicitis possible Narrative: This is a 34-year-old woman with history of gastric bypass, cholecystectomy, bipolar disorder, seizure disorder, and depression, who presents to the ER with 4 days of abdominal pain and anorexia. On CT scan she has acute appendicitis with some surrounding fluid in the right lower quadrant. She says she has nausea and vomiting from time to time at baseline because she has a history of gastric bypass. She says she is having exquisite tenderness in the right lower quadrant, and general malaise. She says that she has recently had many of her psychiatric medications changed, and she is not ?stable,? but she is better than she was. She has a [id number] child with her for him she does not currently have an alternative source of childcare. dental services director is actively trying to help her establish care for the child to that she can do with her medical care. ROS: Thirteen system review is negative other than as mentioned below and in HPI. PE: GENERAL: Well groomed and cooperative. Appears stated age. Answers questions promptly and appropriately. Vital signs noted. HENT: Normocephalic, atraumatic. Hearing intact. Oral mucosa is pink and moist. EYES: Conjunctiva pink, sclera white, no periorbital swelling. CARDIOVASCULAR: Regular rate. No pedal edema. RESPIRATORY: Non tachypneic, breathing comfortably on room air. GASTROINTESTINAL: Abdomen soft and non-distended; keyon it tenderness to palpation in the right lower quadrant, redundant skin consistent with significant weight loss GENITALURINARY: No flank tenderness. MUSCULOSKELETAL: Equal tone and mass bilaterally. SKIN: Warm, dry, soft, appropriate color for ethnicity. No other lesions, rashes, or wounds. NEURO: Alert and Oriented X 3. No gross sensory deficits, or cognitive issues. PSYCH: Appropriate affect and mood. Patient History Medical History delivery delivered (Acute) Epilepsy (Acute) Surgical History Gastric bypass status for obesity (Acute) Hx of cholecystectomy (Acute) Family & Social History Safety & Behavioral: Feels Safe in Current Yes Environment Been Physically Hurt or No Threatened By a Person Tobacco & Substance use: Smoking Status Never smoker Meds Home Medications and Allergies Home Medications Medication Instructions Recorded Confirmed Type Mynatal 1 cap PO DAILY #0 07/10/17 05/21/19 History cholecalciferol (vitamin D3) 0 unit PO DAILY #0 07/10/17 05/21/19 History [Vitamin D3] diphenhydramine HCl [Benadryl 25 mg PO PRN PRN #0 07/10/17 05/21/19 History Allergy] docusate sodium 100 mg PO BIDP PRN #0 07/10/17 05/21/19 History montelukast [Singulair] 10 mg PO DAILY #0 07/10/17 05/21/19 History ondansetron HCl 4 mg PO Q4HP PRN #0 07/10/17 05/21/19 History pantoprazole [Protonix] 20 mg PO DAILY #0 07/10/17 05/21/19 History simethicone [Gas-X Extra Strength] 125 mg PO PRN PRN #0 07/10/17 05/21/19 History vitamin B complex [B 1 tab PO DAILY #0 07/10/17 05/21/19 History Complex-Vitamin B12] brexpiprazole [Rexulti] 1 mg PO DAILY 05/21/19 05/21/19 History diazepam 5 mg PO TID PRN 05/21/19 05/21/19 History fluoxetine 40 mg PO QPM 05/21/19 05/21/19 History oxcarbazepine 300 mg PO QPM 05/21/19 05/21/19 History Allergies Allergy/AdvReac Type Severity Reaction Status Date / Time aripiprazole [From ABILIFY] Allergy Intermediate Verified 05/21/19 10:34 carbamazepine [From TEGRETOL] Allergy Intermediate Verified 05/21/19 10:34 divalproex sodium Allergy Intermediate Verified 05/21/19 10:34 [From DEPAKOTE] lithium [LITHIUM] Allergy Intermediate Verified 05/21/19 10:34 lurasidone [From LATUDA] Allergy Intermediate Verified 05/21/19 10:34 morphine [MORPHINE] Allergy Intermediate Verified 05/21/19 10:34 sulfamethoxazole Allergy Intermediate Verified 05/21/19 10:34 [From BACTRIM] tramadol [TRAMADOL] Allergy Intermediate Verified 05/21/19 10:34 trimethoprim [From BACTRIM] Allergy Intermediate Verified 05/21/19 10:34 Exam Vital Signs (past 8 hours): - 05/21/19 10:34 05/21/19 11:58 05/21/19 14:12 Temperature 98.0 F Pulse Rate 111 H 83 87 Respiratory Rate 16 16 23 Blood Pressure 132/94 H Blood Pressure [Left Arm] 113/54 L 130/72 Pulse Oximetry 100 100 98 Oxygen Delivery Method Room Air Objective Imaging CT scan - abdomen: Radiologist's impression: Patient: Amalia Crain EMR#: [id number] : 1985Acct:[id number] Age/Sex: 34 / FDate of Service: 05/21/19 Loc: ED Accession Number: [id number] Procedure: CT abdomen pelvis w con Ordering Provider: [place] PROCEDURE: CT ABDOMEN PELVIS W CON INDICATIONS: RLQ pain, vomiting, high WBC TECHNIQUE: After the administration of intravenous contrast, 5 mm thick sections acquired from the diaphragm to the symphysis. 5 mm coronal and sagittal reformats were acquired. For radiation dose reduction, the following was used: automated exposure control, adjustment of mA and/or kV according to patient size. COMPARISON: None. FINDINGS: Image quality: Excellent. ABDOMEN: Lung bases: Lung bases are clear. Heart size is normal. Solid organs: Liver is normal in size and enhancement. Gallbladder is surgically absent. Biliary system is non dilated. Pancreas enhances normally. Spleen is normal in size and enhancement. No adrenal nodules. Kidneys demonstrate normal size and enhancement, without hydronephrosis. Peritoneum and bowel: Post surgical changes compatible with prior gastric bypass procedure noted. Bowel loops demonstrate normal wall thickness and caliber. The fetus is enlarged 1.6 cm. There is a 0.5 x 0.9 cm appendicolith in the appendix. Inflammatory changes and free fluid noted adjacent to the appendix. Small amount of free fluid in the cul-de-sac of the pelvis. No definite free intraperitoneal air. Nodes and vessels: No retroperitoneal or mesenteric adenopathy by size criteria. Aorta and inferior vena cava are normal in size. Miscellaneous: No ventral hernias. PELVIS: Genitourinary: Bladder wall thickness is normal. Miscellaneous: No inguinal hernias or adenopathy. Bones: No suspicious bony lesions. No vertebral body compression fractures. IMPRESSION: 1. Findings compatible with acute appendicitis. There is a large appendicolith within the dilated/inflamed appendix. 2. Moderate amount of free fluid in the right lower quadrant in the region of appendicitis. Dictated by: Nova Baltazar MD, PhD on 05/21/2019 at 14:03 Approved by: Nova Baltazar MD, PhD on 05/21/2019 at 14:09 Labs Result Diagrams: 05/21/19 12:05 05/21/19 12:05 Labs: Laboratory Results - last 24 hr 05/21/19 05/21/19 05/21/19 12:05 12:05 12:05 WBC 21.5 H RBC 4.73 Hgb 12.9 Hct 39.7 MCV 84.1 MCH 27.3 MCHC 32.4 RDW 13.8 Plt Count 321 Neut % (Auto) 93.0 H Lymph % (Auto) 2.7 L [place] % (Auto) 3.9 Eos % (Auto) 0.1 L Baso % (Auto) 0.3 Neut # (Auto) 90129 H Lymph # (Auto) 600 L [place] # (Auto) 800 Eos # (Auto) 0 Baso # (Auto) 100 PT 14.8 H INR 1.3 APTT 31 Sodium 141 Potassium 3.5 Chloride 107 Carbon Dioxide 23 BUN 7 Creatinine 0.70 Estimated GFR > 60.0 BUN/Creatinine Ratio 10.0 Glucose 130 H Lactate Calcium 9.2 Total Bilirubin 0.5 AST 17 ALT 10 Alkaline Phosphatase 105 Total Protein 7.2 Albumin 4.3 Globulin 2.9 Albumin/Globulin Ratio 1.5 Lipase 47 Serum , Qual Urine RBC Urine WBC Ur Squamous Epith Cells Urine Bacteria Urine Mucus Ur Culture Indicated? 05/21/19 05/21/19 05/21/19 12:05 12:05 13:00 WBC RBC Hgb Hct MCV MCH MCHC RDW Plt Count Neut % (Auto) Lymph % (Auto) [place] % (Auto) Eos % (Auto) Baso % (Auto) Neut # (Auto) Lymph # (Auto) [place] # (Auto) Eos # (Auto) Baso # (Auto) PT INR APTT Sodium Potassium Chloride Carbon Dioxide BUN Creatinine Estimated GFR BUN/Creatinine Ratio Glucose Lactate 1.2 Calcium Total Bilirubin AST ALT Alkaline Phosphatase Total Protein Albumin Globulin Albumin/Globulin Ratio Lipase Serum , Qual Negative Urine RBC 5-10/hpf H Urine WBC None seen Ur Squamous Epith Cells 1-5 /hpf Urine Bacteria None seen Urine Mucus 1+ H Ur Culture Indicated? Cult not indicated Assessment & Plan Assessment and plan (1) Acute appendicitis: Current visit: Yes Status: Acute (2) History of gastric bypass: Problem details: Baseline nausea vomiting Current visit: Yes Status: Acute (3) Depression: Problem details: Moderately controlled per the patient Current visit: Yes Status: Acute (4) Bipolar 1 disorder: Problem details: In the process of changing medications, not stable but improved per the patient Current visit: Yes Status: Acute (5) Epilepsy: Problem details: Controlled on medication per the patient Current visit: Yes Status: Acute (6) Leukocytosis: Problem details: Marked leukocytosis; White blood cell count of 21 Current visit: Yes Status: Acute Assessment & Plan narrative: The patient has acute appendicitis and needs IV antibiotics and an appendectomy. I explained to her that her appendicitis is a bit advanced in that there is fluid in the right lower quadrant and has been smoldering for 3 or 4 days. I explained to her that this means she may need a prolonged recovery which may include an open operation, prolonged percutaneous drain, prolonged stay in the hospital. She has a [id number] child with her, for whom she says she has no one to care at this time. I have asked the nurses in the ER to get social work on board to help her establish appropriate care for her son so that this issue so the patient can get the care that she needs. Plan: IV antibiotic, broad coverage NPO IV fluids Social Work to help with establishing children's ministries director Plan for laparoscopic possible open appendectomy in the operating room this evening pending childcare needs are resolved 25 minutes were spent face to face with the patient. More than 50% of the time was spent in counseling and co-ordination of care regarding the importance of staying in the hospital for appropriate treatment, the risk of sepsis, and morbidity and mortality if she does not take proper care of her acute appendicitis, the risks and benefits of surgery, possible need for prolonged recovery, open surgery, drain placement, prolonged hospital stay, prolonged antibiotic treatment. An additional 5 minutes were spent discussing with the nurse regarding getting social service involvement and establishing care for the patient's child.
[2019-05-21 14:57] LABS: Adenovirus F 40/41 Not Detected (Not Detect); Astrovirus Not Detected (Not Detect); Campylobacter Not Detected (Not Detect); Clostridium difficile toxin AB Not Detected (Not Detect); Cryptosporidium Not Detected (Not Detect); Cyclospora cayetanensis Not Detected (Not Detect); Entamoeba histolytica Not Detected (Not Detect); Enteroaggregative E.coli Not Detected (Not Detect); Enteropathogenic E.coli Not Detected (Not Detect); Enterotoxigenic E.coli It/st Not Detected (Not Detect); Giardia lamblia Not Detected (Not Detect); Norovirus GI/GII Not Detected (Not Detect); Plesiomonsa shigelloides Not Detected (Not Detect); Rotavirus A Not Detected (Not Detect); Salmonella Not Detected (Not Detect); Sapovirus Not Detected (Not Detect); Shiga-like toxin-prod E.coli Not Detected (Not Detect); Shigella/Enteroinvasive E.coli Not Detected (Not Detect); Vibrio Not Detected (Not Detect); Vibrio cholerae Not Detected (Not Detect); Yersinia enterocolitica Not Detected (Not Detect)
[2019-05-21] MEDS: SODIUM CHLORIDE 0.9% 1,000 ML 150 ML IV (15:04)
[2019-05-21] MEDS: PIPERACILLIN-TAZO 3.375 GM/50 ML FROZ.PIGGY IV (15:04)
--- NOTE | 2019-05-21 16:19 | CM.SWNOTE ---
environmental services manager plan: Patient is a 34 yr old female who came into the ED today for abdominal pain. Patient was determined to need emergent Appendectomy tonight at 1745 but patient has a toddler son and her is deployed with no one to watch her son. CM/RN met with patient at the bedside and explained CM role. patient was alert and oriented x3 but very worried and emotional about how to care for her son. CM/RN asked if the patient has contacted her husbands command leigh ann? Patient stated her contacted them and they were unavailable. CM/RN contacted [facility] quarter deck at [phone] they transfered me to [facility] [phone] who stated they were unable to help and gave CM/RN the number to the [facility] Fleet and family services line at [phone]. [facility] family services stated that they don't help with these type of issues and transfered CM to base quarter deck [phone] the base quarter deck tranfered me to the [facility] quarter deck at [phone] who transfered me to 4 family assistance representative Stevan who was able to come into the hospital and case picker the patients son and take him to another command members Katia Avendaño who will watch the patients son for tonight and tomorrow morning until the patients mother is able to fly in to care for him. Marcelle Caldwell RN ELECTROPHYSIOLOGIST - Clinical Nurse Educator Assessment [facility] [place] - Clinical Nurse Educator Assessment Start: 05/21/19 16:13 Freq: Status: Active Protocol: Document 05/21/19 16:13 (Rec: 05/21/19 16:19 [email or web address]) ELECTROPHYSIOLOGIST/Clinical Nurse Educator Assessment Time Spent with Patient Start date 05/21/19 Visit Start Time 15:20 End date 05/21/19 Visit End Time 16:25 Total time Care Management spent on 65mins patient visit-in minutes Legal Concerns Legal Matters - Outstanding Issues patients needs emergent surgery and patients is [place] in 4 and deployed and patient has no one to care for her toddler son. Risk Assessment Suicidal Ideation (Plan) No Homicidal Ideation (Plan) No
--- NOTE | 2019-05-21 16:57 | PC.NURSE ---
Addendum entered by Jolynn Magana R.N. 05/21/19 22:49: Pt returned to room 217 from PACU. Somnolent but awakens to voice. Reports thirst. Dr. Sanchez called to obtain clear liquid diet order. Water and HS meds to be given now. Band-aid Drsg x3 c/d/i. Gauze to GUSTAVO insertion site. GUSTAVO drain with small amt of sero-sang drainage. SCD's on and running. Call light within reach. Original Note: Pt arrived from ED via W/C. Oriented to room and call system. NS bag started in ER with approx 900 ml still in bag cont IVF infusion per orders. 2 RN skin check complete. Nnamdi RN sent home meds to pharmacy. Pt reports she has been NPO for 48 hrs.
[2019-05-21] MEDS: HYDROMORPHONE 1 MG INJ IV (18:08)
[2019-05-21] MEDS: LACTATED RINGERS 1,000 ML 100 ML IV (18:16)
--- NOTE | 2019-05-21 20:44 | SUR.OPER ---
Supine on padded OR bed, head on pillow, arm padded and tucked at side, legs uncrossed, safety belt at thigh, tape over blanket over lower legs .
[2019-05-21] MEDS: BUPIVACAINE 0.25% W/ EPI (PF) 10 ML VIAL 20 ML INJ (20:49)
--- NOTE | 2019-05-21 21:32 | SUR.OPER ---
19 fr jimbo drain placed
--- NOTE | 2019-05-21 22:09 | PM.OP.1 ---
Operative Date/Time/Diagnoses Date of procedure: 05/21/19 Time of procedure: 22:09 Pre-op diagnosis: acute appendicitis Post-op diagnosis: other (acute perforated appendicitis with abdominal abscess and fecal contamination) Procedure & Clinicians Procedure: Laparoscopic appendectomy, drainage of abscess Same procedure as scheduled: Yes Indications: Acute appendicitis Surgeon: Jamilah Sanchez Click Yes if Unassisted: Yes Anesthesia Type: General Operative Notes Findings: Gangrenous appendix, perforated appendicitis, pelvic abscess with fecal contamination Specimen(s): other (Appendix) Applied: drain(s) (Right lower quadrant GUSTVAO drain) Estimated Blood Loss (mL): 10 Blood products transfused: none Procedure in detail: The patient was brought into the operating room and placed supine on the OR table. Sequential compression devices were placed on both legs and turned on. Appropriate perioperative antibiotics were given prior to the start of surgery. General anesthesia was induced the patient was intubated. The abdomen was prepped and draped in sterile fashion. A Stover catheter was placed sterilely in the bladder. Surgical time-out was conducted. Local anesthetic was injected under the skin just superior to the umbilicus and a 5 mm vertical incision was made at this site. The umbilical stalk was grasped with a Jina and elevated. A 5 mm optical trocar was placed using a 0 degree scope for direct visualization during port advancement into the abdomen. Once the port was in the proper position, the abdomen was then insufflated in the usual fashion to 15mm Hg. Once the camera was inside the abdomen I took a look around. There was no injury from port placement. Green purulent fluid was seen in the pelvis. A 2nd port was placed just above the pubic bone using a 5 mm port after local anesthetic was given. Using a bowel grasper the cecum was rotated medially, and it purulence fecal fluid poured out from behind the cecum. The fluid was suctioned out. A 3rd port was placed in the same fashion in the left lower quadrant, and the umbilical port was upsized to a 10 12 port. I then re-examined the cecum and found that the perforated appendix was plastered to the cecum in a retrocecal position. I gradually dissected around the appendix but it was very friable and gangrenous. It fell apart continually as I tried to dissected off the cecum. Within the abscess pocket there was stool and pus, but there was no persistent drainage coming from the cecum itself. It appeared the only perforation was from the appendix. I continued to dissect the appendix off of the cecum, and finally got the whole thing controlled. I was able to dissect out the base of the appendix although it was very friable and thinned out I felt that I had a good location for stapling across the base. At this point a 45 mm blue load endoscopic stapler was used to transect the base of the appendix. The remaining appendix was placed into an Endo-Catch bag and removed from the abdomen. A 3 0 silk suture was used to dunk the staple line and cover it with a modified Junito patch using fatty epiploica of the cecum to cover the staple line. I re-examined the wound bed for the appendix had been, and the associated abscess cavity. There was a tiny bit of bloody drainage, but there was no specific bleeding vessel. The bloody drainage was coming from the generalized raw surface of the abscess cavity. The entire area was irrigated again with a L of saline and suctioned out until no visible stool or pus was present. Nineteen round Loc drain was placed through right lower quadrant stab incision and was positioned along the right gutter and in the pelvis. This was sutured in place with the 3 0 nylon suture in the skin. At this point the case was concluded. We closed the umbilical port site with 0 Vicryl using a Juan Chávez suture Passer. The abdomen was then desufflated and the remaining port sites were closed with 4 O Monocryl in the skin and Steri-Strips over that. Band-Aids were placed over top of the Steri-Strips and 4 x 4 gauze and tape were used to dress the drain site. Local anesthetic was given at each of the port sites and in the fascia. This concluded the procedure. At this point the needle sponge and instrument counts were correct. The appendix was passed off the table for pathology. Patient was awakened from anesthesia and extubated. She was transferred to the postanesthesia care unit in stable condition. Complications: none Post-operative Condition: stable Disposition: PACU
--- NOTE | 2019-05-21 22:45 | SUR.PHASEI ---
2230 mostly sleeping, Surgeon here, talking w/pt, answering questions. She saw the volume and color the the bulb drainage, commented that it looked good.
--- NOTE | 2019-05-21 22:49 | SUR.PHASEI ---
2235 to room 217, bed down and locked, call light within reach, staff will put on SCDs. Abd bandaids and gauze remain CDI, Drain compressed. No c/o pain or nausea, pt able to converse. no grimace, moaning, or other verbbal or non-verbal indicators of pain or nausea.
[2019-05-21] MEDS: FLUoxetine 20 MG CAPSULE 40 MG PO (23:07)
[2019-05-21] MEDS: OXcarbazepine 150 MG TABLET 300 MG PO (23:08)
[2019-05-22] VITALS (7 sets, daily range): BP systolic 108–129; BP diastolic 62–78; PULSE 72–89; RESP 16–17; TEMP 36.3–37.3; O2SAT 96–99
[2019-05-22] MEDS: PIPERACILLIN-TAZO 3.375 GM/50 ML FROZ.PIGGY IV ×4 (00:11→21:09)
[2019-05-22] MEDS: HYDROMORPHONE 2 MG INJ 1 MG IV ×2 (00:11→04:15)
[2019-05-22] MEDS: ACETAMINOPHEN 325 MG TABLET 650 MG PO ×3 (03:05→18:04)
[2019-05-22 06:10] LABS: Add Manual Diff / Slide Review NO; Basophils Absolute Auto 0 /uL (0-100); Eosinophils Absolute Auto 0 /uL (0-450); Hematocrit 34.8 % (36-46); Hemoglobin 11.3 g/dL (12.0-16.0); Lymphocytes Absolute Auto 300 /uL (1100-4500); Lymphocytes Percent Auto 1.4 % (25-40); Mean Corpuscular HGB Conc 32.5 % (30-36); Mean Corpuscular Hemoglobin 27.4 PG (26-34); Mean Corpuscular Volume 84.3 fL (80-100); Monocytes Absolute Auto 800 /uL (0-900); Monocytes Percent Auto 3.7 % (3-14); Neutrophils Absolute Auto 21100 /uL (1500-7000); Neutrophils Percent Auto 94.9 % (50-75); Platelet Count 310 X10^3/uL (150-400); Red Blood Cell Count 4.13 X10^6/uL (4.0-5.2); Red Cell Distribution Width 13.9 % (11.6-14.8); White Blood Cell Count 22.2 X10^3/uL (4.5-11.0)
--- NOTE | 2019-05-22 06:11 | PC.NURSE ---
Pt is doing well. Vitals stable, temp 99.1F overnight and resolved. Tylenol given for pain as well as 1mg IV Dilaudid which has been helpful. Tolerating clear liquids; reported some nausea at midnight that was relieved with Zofran. Pt ambulated around unit with staff and did well. Pt hoping to go home later today. GUSTAVO drain= 75mL at 2300 when pt had just come back to the floor after surgery; then another 75cc of purulent/sanguinous drainage.
[2019-05-22 06:17] LABS: BUN Creatinine Ratio 8.3 (6-22); Blood Urea Nitrogen 5 mg/dL (7-17); Calcium 8.9 mg/dL (8.4-10.2); Carbon Dioxide 26 mmol/L (22-32); Chloride 107 mmol/L (98-107); Estimated Glomerular Filt Rate > 60.0 mL/min (>60); Glucose 183 mg/dL (70-100); HEMOLYSIS < 15 (0-50); Magnesium 1.9 mg/dL (1.6-2.3); Potassium 3.7 mmol/L (3.4-5.1); Sodium 139 mmol/L (137-145)
[2019-05-22] MEDS: PANTOPRAZOLE 20 MG TABLET PO (08:30)
[2019-05-22] MEDS: MONTELUKAST 10 MG TABLET PO (08:31)
[2019-05-22] MEDS: diazePAM 5 MG TABLET PO ×2 (08:31→14:30)
[2019-05-22] MEDS: ONDANSETRON 4 MG/2 ML INJ IV ×3 (08:31→21:47)
--- NOTE | 2019-05-22 09:08 | P.PN_ITS ---
Subjective Subjective Date Patient Seen: 05/22/19 Time Patient Seen: 15:18 Interval history: No acute events overnight. Patient has minimal appetite, is upset that some of her home medications are not available, and is upset that she may not be able to go home today. Pain is not well-controlled. Denies subjective fevers/chills. Exam Vital Signs (past 8 hours): - 05/22/19 01:45 05/22/19 04:15 Temperature 98.2 F 99.1 F Pulse Rate 89 87 Respiratory Rate 16 16 Blood Pressure 119/63 121/71 Pulse Oximetry 96 99 Oxygen Delivery Method Room Air Narrative Exam Narrative: GENERAL: Alert, comfortable, tearful CARDIOVASCULAR: Regular rate. No pedal edema. RESPIRATORY: Non tachypneic, breathing comfortably on room air. GASTROINTESTINAL: Abdomen soft and non-distended; appropriate tenderness to palpation, milky serosanguineous output from the GUSTAVO drain; dressings intact GENITALURINARY: No flank tenderness. MUSCULOSKELETAL: Equal tone and mass bilaterally. SKIN: Warm, dry, soft, appropriate color for ethnicity. No other lesions, rashes, or wounds. NEURO: Alert and Oriented X 3. No gross sensory deficits, or cognitive issues. PSYCH: Appropriate affect and mood. Objective Labs Result Diagrams: 05/22/19 14:12 05/22/19 05:28 Labs: Laboratory Results - last 24 hr 05/21/19 05/21/19 05/21/19 12:05 12:05 12:05 WBC 21.5 H RBC 4.73 Hgb 12.9 Hct 39.7 MCV 84.1 MCH 27.3 MCHC 32.4 RDW 13.8 Plt Count 321 Neut % (Auto) 93.0 H Lymph % (Auto) 2.7 L [place] % (Auto) 3.9 Eos % (Auto) 0.1 L Baso % (Auto) 0.3 Neut # (Auto) 81520 H Lymph # (Auto) 600 L [place] # (Auto) 800 Eos # (Auto) 0 Baso # (Auto) 100 PT 14.8 H INR 1.3 APTT 31 Sodium 141 Potassium 3.5 Chloride 107 Carbon Dioxide 23 BUN 7 Creatinine 0.70 Estimated GFR > 60.0 BUN/Creatinine Ratio 10.0 Glucose 130 H Lactate Calcium 9.2 Magnesium Total Bilirubin 0.5 AST 17 ALT 10 Alkaline Phosphatase 105 Total Protein 7.2 Albumin 4.3 Globulin 2.9 Albumin/Globulin Ratio 1.5 Lipase 47 Serum , Qual Urine RBC Urine WBC Ur Squamous Epith Cells Urine Bacteria Urine Mucus Ur Culture Indicated? Stl C. cayetanensis PCR Stool Rotavirus (PCR) Stool Adenovirus (PCR) Stool Astrovirus (PCR) Stool Cryptosporidium PCR Stl E.coli Shiga Tox PCR St Sh/Enteroin Ecoli PCR Stool E coli O157 PCR Stl Enterotoxigenic E PCR Stool EPEC (PCR) Stl E. histolytica PCR Stool Giardia Lamblia PCR Stool Sapovirus (PCR) Stl P. shigelloides PCR St Y.enterocolitica PCR Stool Vibrio (PCR) Stl Vibrio cholerae PCR Stl Enteroaggr Ecoli PCR Stl Norovirus GI/GII PCR Campylobacter (PCR) C. difficile Tox (PCR) Salmonella (PCR) 05/21/19 05/21/19 05/21/19 12:05 12:05 13:00 WBC RBC Hgb Hct MCV MCH MCHC RDW Plt Count Neut % (Auto) Lymph % (Auto) [place] % (Auto) Eos % (Auto) Baso % (Auto) Neut # (Auto) Lymph # (Auto) [place] # (Auto) Eos # (Auto) Baso # (Auto) PT INR APTT Sodium Potassium Chloride Carbon Dioxide BUN Creatinine Estimated GFR BUN/Creatinine Ratio Glucose Lactate 1.2 Calcium Magnesium Total Bilirubin AST ALT Alkaline Phosphatase Total Protein Albumin Globulin Albumin/Globulin Ratio Lipase Serum , Qual Negative Urine RBC Urine WBC Ur Squamous Epith Cells Urine Bacteria Urine Mucus Ur Culture Indicated? Stl C. cayetanensis PCR Not detected Stool Rotavirus (PCR) Not detected Stool Adenovirus (PCR) Not detected Stool Astrovirus (PCR) Not detected Stool Cryptosporidium PCR Not detected Stl E.coli Shiga Tox PCR Not detected St Sh/Enteroin Ecoli PCR Not detected Stool E coli O157 PCR Not Reportable Stl Enterotoxigenic E PCR Not detected Stool EPEC (PCR) Not detected Stl E. histolytica PCR Not detected Stool Giardia Lamblia PCR Not detected Stool Sapovirus (PCR) Not detected Stl P. shigelloides PCR Not detected St Y.enterocolitica PCR Not detected Stool Vibrio (PCR) Not detected Stl Vibrio cholerae PCR Not detected Stl Enteroaggr Ecoli PCR Not detected Stl Norovirus GI/GII PCR Not detected Campylobacter (PCR) Not detected C. difficile Tox (PCR) Not detected Salmonella (PCR) Not detected 05/21/19 05/22/19 05/22/19 13:00 05:28 05:28 WBC 22.2 H RBC 4.13 Hgb 11.3 L Hct 34.8 L MCV 84.3 MCH 27.4 MCHC 32.5 RDW 13.9 Plt Count 310 Neut % (Auto) 94.9 H Lymph % (Auto) 1.4 L [place] % (Auto) 3.7 Eos % (Auto) 0.0 L Baso % (Auto) 0.0 Neut # (Auto) 49122 H Lymph # (Auto) 300 L [place] # (Auto) 800 Eos # (Auto) 0 Baso # (Auto) 0 PT INR APTT Sodium 139 Potassium 3.7 Chloride 107 Carbon Dioxide 26 BUN 5 L Creatinine 0.60 Estimated GFR > 60.0 BUN/Creatinine Ratio 8.3 Glucose 183 H Lactate Calcium 8.9 Magnesium 1.9 Total Bilirubin AST ALT Alkaline Phosphatase Total Protein Albumin Globulin Albumin/Globulin Ratio Lipase Serum , Qual Urine RBC 5-10/hpf H Urine WBC None seen Ur Squamous Epith Cells 1-5 /hpf Urine Bacteria None seen Urine Mucus 1+ H Ur Culture Indicated? Cult not indicated Stl C. cayetanensis PCR Stool Rotavirus (PCR) Stool Adenovirus (PCR) Stool Astrovirus (PCR) Stool Cryptosporidium PCR Stl E.coli Shiga Tox PCR St Sh/Enteroin Ecoli PCR Stool E coli O157 PCR Stl Enterotoxigenic E PCR Stool EPEC (PCR) Stl E. histolytica PCR Stool Giardia Lamblia PCR Stool Sapovirus (PCR) Stl P. shigelloides PCR St Y.enterocolitica PCR Stool Vibrio (PCR) Stl Vibrio cholerae PCR Stl Enteroaggr Ecoli PCR Stl Norovirus GI/GII PCR Campylobacter (PCR) C. difficile Tox (PCR) Salmonella (PCR) Assessment & Plan Assessment and plan (1) Leukocytosis: Problem details: Marked leukocytosis; White blood cell count of 21 Current visit: Yes Status: Acute (2) Epilepsy: Problem details: Controlled on medication per the patient Current visit: Yes Status: Acute (3) History of gastric bypass: Problem details: Baseline nausea vomiting Current visit: Yes Status: Acute (4) Acute appendicitis: Qualifiers: Acute appendicitis type: unspecified acute appendicitis type Qualified Code(s): K35.80 - Unspecified acute appendicitis Current visit: Yes Status: Acute (5) Acute appendicitis: Current visit: Yes Status: Acute (6) Nausea: Current visit: Yes Status: Acute (7) Depression: Problem details: Moderately controlled per the patient Current visit: Yes Status: Acute (8) Bipolar 1 disorder: Problem details: In the process of changing medications, not stable but improved per the patient Current visit: Yes Status: Acute (9) Seizure: Current visit: No Status: Acute Assessment & Plan narrative: 34-year-old woman postop day 1 from laparoscopic appendectomy with finding of perforated gangrenous appendix with a pelvic abscess including pus and stool. The appendix was removed, and a drain was placed. Today I discussed with the patient with the potential for her to go home today. However, her pain is not well controlled, her white count is still going up, and she is not eating very much. My main concern is the white count. She did have quite a significant abscess and a perforated appendix. That was all washed out and drain, although in the setting of gross inflammation it is possible that the base of the appendix will open and she will end up with a fistula or free perforation into the abdomen. Because of the increasing white count I do think we need to keep here over night and see what is in the morning. If the white count going up again tomorrow I will re-scanned her, and consider return to the operating room if she has a leak. Her mother's coming from out of town should arrive this afternoon. The patient is quite distressed. She has been recently undergoing a medication change for her bipolar, and felt that she was improving but not entirely stable at the time that she came in the ER for her appendicitis. We have not been able to get her 1 of her medications, which is not held in the pharmacy here. However, we will ask her mother to bring it from home so that she can use the medication tomorrow morning. The social workers involved to help with transportation for the mother, coordination with the woman taking care of the patient's son, and helping the patient dealing with the emotional distress of her current situation. Plan: Advance diet as tolerated Repeat labs in a.m. Continue IV antibiotics Continue home meds Have patient's mother bring her Rexulti from home Time Spent With Patient Time with patient: Greater than 35 minutes Quality VTE Deep Vein Thrombosis/Pulmonary Embolism Present on Admission: No
[2019-05-22] MEDS: HYDROCODONE/ACET 10/325 TABLET 1 TAB PO (09:31)
[2019-05-22] MEDS: HYDROMORPHONE 2 MG TABLET PO ×2 (12:20→15:52)
--- NOTE | 2019-05-22 13:04 | PC.NURSE ---
0900- Pt extremely anxious and upset that she might possibly have to stay in the hospital until tomorrow. Hx of bipolar, Pt upset this am when we did not have a certain medication for her. Explained that our pharmacy does not stock this med. Dr. Sanchez into see patient this morning and explained to her she can miss a dose of medication. She seemed to be more at ease with this. Apparently her child is staying with her husbands juan who is in the [facility] and she has been sending patient pictures of the baby and this too has set patient more at ease. She has personal reasons for why she does not want her son with people she does not know. Pt has 3 bandaide dressings that are cdi to lower abdomen with a kassidy drain putting out serous fluid. Pt has not had any pus or stool in the line as of now. advanced patients diet to a low residual soft diet and she is trying to eat her mashed potatoes. IVF has been stopped and pt is getting iv antibiotics. She also has some labs ordered for 1400 and another iv antibiotic due. Valium given earlier this morning with some zofran. Pt is pleasant but having a hard time adjusting to being in the hospital. Initially ordered po vicodin for patient and this was not effective for pain. Called MD and she ordered dilaudid po for patient and 2mg given to her.. Pt states that she is angry, will go check on her now.
--- NOTE | 2019-05-22 13:47 | CM.DANOTE ---
Addendum entered by Marcelle Caldwell R.N. 05/22/19 14:03: CM/RN spoke with Dr. Sanchez this afternoon and she stated she was still working on getting the patient d/c this evening but it will depend on how patients labs look. If the labs are trending down and Dr. Sanchez feels comfortable with D/C the patient will go home tonight if not then D/C most likely tomorrow morning. Marcelle Caldwell RN Original Note: DCP Assessment: EMR Reviewed: Patient is a 34 yr old female who was admitted for a perforated appendix with appendectomy preformed by Dr Sanchez. Dr. Sanchez called CM/RN to discuss patients status this morning. Patient was very emotional and has a hx of bipolar depression and anxiety. Patient was attempting to leave hospital AMA so she could drive to [place] to pick her mom up from [facility]. and Dr Sanchez explained why it was important that the patient stay here in the hospital and get her IV antibiotics. Patient agreed but was very emotional. CM/Rn met with this patient yesterday 05/21/2019 in the ED to discuss an issues with having child support investigator set up for her to be able to have emergent surgery. 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 Patients command master chiefs watched patients son over night and today until patients mother was able to get in. CM/RN met with patient at the bedside and explained CM/RN role. Patient was emotional during CM/ RN meeting but was alert and oriented x3. CM/RN explained in length why a perforated appendix and possible sepsis was dangerous and why it was important for the patient to stay in the hospital until MD cleared her to go home. Patient finally agreed to stay for up to 24 hours but requested to be updated when labs returned on how she was doing and ultimately would like to go home today. Patient was worried about her mother getting from [facility] to [facility] and then to [place] to picking machine operator her son. CM/RN gave patient [facility] shuttle information as well as [facility] shuttle which comes into [place] directly. CM/RN worked with patients command leigh ann to get a ride from the shuttle drop off location to for patients mother so she can picking machine operator patients son from patient command master chief. Patient requested copy of her operative note for her to review and CM/RN gave it to her. Marcelle Caldwell RN. Discharge Planning/Care Management CM Discharge Assessment Start: 05/22/19 13:44 Freq: Status: Active Protocol: Document 05/22/19 09:00 HS (Rec: 05/22/19 13:47 [id number]) Discharge Planning Assessment Assigned Propellant Charge Loader Marcelle Caldwell RN DPOA/Assigned Designee Name Cristian Crain () Contact Information [phone] Advance Directives? No History Provided By Patient Has Patient been admitted in last 30 No days? Prior Living Arrangements House Household Members spouse,children Comment Patients spoucs is currently deployed with [employer]ENTAL HE[employer] PROGRAM DIRECT[employer] 4 Type of transporation used prior to Drives own vehicle admit Independent with ADL's Yes Is patient alert and oriented? Yes Caregiver for Another Yes: Patient has a 3 yr old son Discharge Plan Home Referrals Initiated None needed Whiteboard Updated in Patient Room with Yes name and ext. # of Propellant Charge Loader Review Status In Process Next Review Type Continued Stay Review WOOD ROOM HAND - After School Program Director Assessment Start: 05/21/19 16:13 Freq: Status: Active Protocol: Document 05/21/19 16:13 HS (Rec: 05/21/19 16:19 [id number]) WOOD ROOM HAND/After School Program Director Assessment Start date 05/21/19 Visit Start Time 15:20 End date 05/21/19 Visit End Time 16:25 Total time Care Management spent on 65mins patient visit-in minutes Legal Matters - Outstanding Issues patients needs emergent surgery and patients is [place] in [employer] 4 and deployed and patient has no one to care for her toddler son. Suicidal Ideation (Plan) No Homicidal Ideation (Plan) No
[2019-05-22 14:32] LABS: Add Manual Diff / Slide Review NO; Basophils Absolute Auto 100 /uL (0-100); Basophils Percent Auto 0.2 % (0-2); Eosinophils Absolute Auto 0 /uL (0-450); Hematocrit 36.8 % (36-46); Hemoglobin 12.1 g/dL (12.0-16.0); Lymphocytes Absolute Auto 800 /uL (1100-4500); Lymphocytes Percent Auto 2.9 % (25-40); Mean Corpuscular HGB Conc 32.8 % (30-36); Mean Corpuscular Hemoglobin 27.6 PG (26-34); Mean Corpuscular Volume 84.1 fL (80-100); Monocytes Absolute Auto 1000 /uL (0-900); Monocytes Percent Auto 3.3 % (3-14); Neutrophils Absolute Auto 26800 /uL (1500-7000); Neutrophils Percent Auto 93.6 % (50-75); Platelet Count 374 X10^3/uL (150-400); Red Blood Cell Count 4.37 X10^6/uL (4.0-5.2); Red Cell Distribution Width 14.2 % (11.6-14.8); White Blood Cell Count 28.6 X10^3/uL (4.5-11.0)
--- NOTE | 2019-05-22 16:22 | PC.NURSE ---
Assumed care of pt at 1500. Pt resting in bed during bedside hand-off. Medicated with 2 mg PO Dilaudid as pt states she would rather have pain medications available q 2 hrs. reports pt may have both 4 mg PO Dilaudid q 4 hr and 2 mg PO Dilaudid q 2hr if pt requires or give 4 mg PO q 4 hr and give IV Dilaudid for break-through pain. Mother arrived from out of state for brief visit but states she should be able to bring in home medication that our pharmacy does not stock by the morning.
[2019-05-22] MEDS: LACTOBACILLUS ACIDOPHILUS TABLET 1 EACH PO (17:54)
[2019-05-22] MEDS: HYDROMORPHONE 4 MG TABLET PO ×2 (17:55→21:08)
[2019-05-22] MEDS: FLUoxetine 20 MG CAPSULE 40 MG PO (21:07)
[2019-05-22] MEDS: HEPARIN 5,000 UNIT/ML VIAL 5000 UNIT SUBCUT (21:10)
[2019-05-22] MEDS: OXcarbazepine 150 MG TABLET 300 MG PO (21:11)
[2019-05-23] VITALS: BP 105/58; PULSE 74; RESP 16; TEMP 36.4; O2SAT 96
[2019-05-23] MEDS: PIPERACILLIN-TAZO 3.375 GM/50 ML FROZ.PIGGY IV ×2 (02:24→08:52)
[2019-05-23] MEDS: HYDROMORPHONE 2 MG TABLET PO ×3 (02:27→08:49)
[2019-05-23] MEDS: ACETAMINOPHEN 325 MG TABLET 650 MG PO ×2 (02:31→08:48)
[2019-05-23 04:35] VITALS: BP 122/56; PULSE 99; RESP 17; TEMP 36.9; O2SAT 97
--- NOTE | 2019-05-23 06:33 | PC.NURSE ---
NOC Note: Pt reported pain 6/10 twice this shift, PRN dilaudid 2mg given with good results. Pt up in room and walking in halls independently. Drsg to ABD CDI. GUSTAVO draining 70cc of purulent drainage this shift.
[2019-05-23 07:22] LABS: Add Manual Diff / Slide Review NO; Basophils Absolute Auto 0 /uL (0-100); Basophils Percent Auto 0.1 % (0-2); Eosinophils Absolute Auto 100 /uL (0-450); Eosinophils Percent Auto 0.4 % (2-4); Hematocrit 32.7 % (36-46); Lymphocytes Absolute Auto 600 /uL (1100-4500); Lymphocytes Percent Auto 4.6 % (25-40); Mean Corpuscular HGB Conc 33.6 % (30-36); Mean Corpuscular Hemoglobin 27.7 PG (26-34); Mean Corpuscular Volume 82.6 fL (80-100); Monocytes Absolute Auto 800 /uL (0-900); Monocytes Percent Auto 5.5 % (3-14); Neutrophils Absolute Auto 12400 /uL (1500-7000); Neutrophils Percent Auto 89.4 % (50-75); Platelet Count 331 X10^3/uL (150-400); Red Blood Cell Count 3.96 X10^6/uL (4.0-5.2); Red Cell Distribution Width 13.7 % (11.6-14.8); White Blood Cell Count 13.8 X10^3/uL (4.5-11.0)
[2019-05-23 08:00] VITALS: BP 126/57; PULSE 73; RESP 18; TEMP 36.7; O2SAT 98
[2019-05-23] MEDS: MONTELUKAST 10 MG TABLET PO (08:51)
[2019-05-23] MEDS: PANTOPRAZOLE 20 MG TABLET PO (08:51)
[2019-05-23] MEDS: HEPARIN 5,000 UNIT/ML VIAL 5000 UNIT SUBCUT (08:51)
[2019-05-23] MEDS: LACTOBACILLUS ACIDOPHILUS TABLET 1 EACH PO (08:51)
[2019-05-23] MEDS: ONDANSETRON 4 MG/2 ML INJ IV (08:52)
--- NOTE | 2019-05-23 11:08 | P.DS_ITS ---
History of Present Illness History of Present Illness Chief complaint: appendicitis possible Narrative: This is a 34-year-old woman with history of gastric bypass, cholecystectomy, bipolar disorder, seizure disorder, and depression, who presents to the ER with 4 days of abdominal pain and anorexia. On CT scan she has acute appendicitis with some surrounding fluid in the right lower quadrant. She says she has nausea and vomiting from time to time at baseline because she has a history of gastric bypass. She says she is having exquisite tenderness in the right lower quadrant, and general malaise. She says that she has recently had many of her psychiatric medications changed, and she is not ?stable,? but she is better than she was. She has a [id number] child with her for him she does not currently have an alternative source of childcare. health services director is actively trying to help her establish care for the child to that she can do with her medical care. ROS: Thirteen system review is negative other than as mentioned below and in HPI. PE: GENERAL: Well groomed and cooperative. Appears stated age. Answers questions promptly and appropriately. Vital signs noted. HENT: Normocephalic, atraumatic. Hearing intact. Oral mucosa is pink and moist. EYES: Conjunctiva pink, sclera white, no periorbital swelling. CARDIOVASCULAR: Regular rate. No pedal edema. RESPIRATORY: Non tachypneic, breathing comfortably on room air. GASTROINTESTINAL: Abdomen soft and non-distended; keyon it tenderness to palpation in the right lower quadrant, redundant skin consistent with significant weight loss GENITALURINARY: No flank tenderness. MUSCULOSKELETAL: Equal tone and mass bilaterally. SKIN: Warm, dry, soft, appropriate color for ethnicity. No other lesions, rashes, or wounds. NEURO: Alert and Oriented X 3. No gross sensory deficits, or cognitive issues. PSYCH: Appropriate affect and mood. Discharge Providers Provider Date of admission: 05/21/19 15:56 Discharge Date: 05/23/19 Consults: 05/21/19 15:38 Consult to [facility] [place] - Requirements Engineer Stat Comment: Discharge provider: Jamilah Sanchez MD Summary Hospital Course Discharge Diagnosis: Acute appendicitis Hospital Course: Patient was admitted and taken to the operating room where she had an appendectomy, drainage of an abscess, and drain placement. On postop day 1 her white count was elevated, and she was not tolerating a diet. On postop day do her white count came down to almost normal, she has tolerated diet, and pain was controlled with p.o. pain med. Status at Discharge Cognitive/behavioral status at discharge: oriented and at baseline, oriented Functional status at discharge: independent ambulation Overall status at discharge: patient is progressing back to baseline Time Spent with Patient Time spent: Greater than 30 minutes Exam Vital Signs (past 8 hours): - 05/23/19 04:35 05/23/19 08:00 Temperature 98.5 F 98.0 F Pulse Rate 99 H 73 Respiratory Rate 17 18 Blood Pressure 122/56 L 126/57 L Pulse Oximetry 97 98 Oxygen Delivery Method Room Air Oxygen Flow Rate 0 Narrative Exam Narrative: GENERAL: Alert, comfortable, tearful CARDIOVASCULAR: Regular rate. No pedal edema. RESPIRATORY: Non tachypneic, breathing comfortably on room air. GASTROINTESTINAL: Abdomen soft and non-distended; appropriate tenderness to palpation, milky serosanguineous output from the GUSTAVO drain; dressings intact GENITALURINARY: No flank tenderness. MUSCULOSKELETAL: Equal tone and mass bilaterally. SKIN: Warm, dry, soft, appropriate color for ethnicity. No other lesions, rashes, or wounds. NEURO: Alert and Oriented X 3. No gross sensory deficits, or cognitive issues. PSYCH: Appropriate affect and mood. Objective ECG Impression: CT scan: Acute appendicitis with free fluid in the pelvis Labs Result Diagrams: 05/23/19 07:04 05/22/19 05:28 Labs: Laboratory Results - last 24 hr 05/22/19 05/23/19 14:12 07:04 WBC 28.6 H 13.8 H D RBC 4.37 3.96 L Hgb 12.1 11.0 L Hct 36.8 32.7 L MCV 84.1 82.6 MCH 27.6 27.7 MCHC 32.8 33.6 RDW 14.2 13.7 Plt Count 374 331 Neut % (Auto) 93.6 H 89.4 H Lymph % (Auto) 2.9 L 4.6 L [place] % (Auto) 3.3 5.5 Eos % (Auto) 0.0 L 0.4 L Baso % (Auto) 0.2 0.1 Neut # (Auto) 79637 H 57444 H Lymph # (Auto) 800 L 600 L [place] # (Auto) 1000 H 800 Eos # (Auto) 0 100 Baso # (Auto) 100 0 Discharge Plan Discharge Plan Patient Disposition: Home Discharge comment: You were admitted to the hospital for severe acute appendicitis. You were found to have a gangrenous perforated appendix with an abscess in your abdomen containing stool and pus. A drain was placed to cont inue allowing any remaining fluid or infection to drain out, and to let us know if there is a leak from the place on your colon where your appendix was removed. At home, you will need to keep a clean dressing around your drain site, and empty the drain bulb several times per day. Your nurse will review with you how to manage the drain. You do not need to continue antibiotics at this time as your infection source has been controlled by removing the appendix, and draining the abscess. However , if you develop fevers over 101 at home, worsening pain, nausea, or inability to keep down liquids and keep hydrated you need to contact the surgeon's office immediately, or if symptoms are severe come into the ER to be seen. If the drainage from your drain begins to look like stool or bile (brown or green) please contact the surgeon's office immediately. At home you need to continue taking a probiotic, pain medicine as needed, and your regular home medications. Taper yourself off of the narcotic pain medication as soon as you are able. You may take Tylenol and Ibuprofen for pain when you no longer need the narcotic. Be careful how much Tylenol you take. It may be in your prescribed pain medication, and in other products such as cold medicine. Do not take more than 3000mg per day of Tylenol/Acetaminophen from any/all sources. Discharge orders & Medications Prescriptions: New docusate sodium 100 mg capsule 100 mg PO BID Qty: 60 RF: 0 hydromorphone [Dilaudid] 4 mg tablet 4 mg PO Q4-6H MDD 4 tabs PRN (Reason: pain) Qty: 30 RF: 0 pantoprazole [Protonix] 20 mg tablet,delayed release (DR/EC) 20 mg PO DAILY Qty: 30 RF: 2 ondansetron 4 mg tablet,disintegrating 4 mg PO Q6H PRN (Reason: nausea and vomiting) Qty: 30 RF: 0 Continued pantoprazole [Protonix] 20 MG tablet,delayed release (DR/EC) 20 mg PO DAILY Qty: 0 RF: 0 ondansetron HCl 4 MG tablet 4 mg PO Q4HP PRN (Reason: Nausea) Qty: 0 RF: 0 montelukast [Singulair] 10 MG tablet 10 mg PO DAILY Qty: 0 RF: 0 Mynatal 1 EACH capsule 1 cap PO DAILY Qty: 0 RF: 0 cholecalciferol (vitamin D3) [Vitamin D3] 2,000 unit tablet 0 unit PO DAILY Qty: 0 RF: 0 simethicone [Gas-X Extra Strength] 125 mg Capsule 125 mg PO PRN PRN (Reason: gas) Qty: 0 RF: 0 docusate sodium 100 MG capsule 100 mg PO BIDP PRN (Reason: Constipation) Qty: 0 RF: 0 vitamin B complex [B Complex-Vitamin B12] 1 EACH tablet 1 tab PO DAILY Qty: 0 RF: 0 diphenhydramine HCl [Benadryl Allergy] 25 mg tablet 25 mg PO PRN PRN (Reason: Allergy Symptoms) Qty: 0 RF: 0 oxcarbazepine 300 mg tablet 300 mg PO QPM RF: 0 fluoxetine 20 mg capsule 40 mg PO QPM RF: 0 diazepam 5 mg tablet 5 mg PO TID PRN (Reason: Anxiety) RF: 0 Rexulti 1 mg tablet 1 mg PO DAILY RF: 0 Follow up/Referrals: Jamilah Sanchez MD [Physician] - (Please make an appointment to see me next week.) Diet/Activity/Treatments Diet: Diet as Tolerated Diet comment: You may stay on liquids, or go ahead to solid diet as tolerated. Activity: avoid heavy lifting/straining, core workouts, or strenuous exercise for 4 weeks; it is ok to do light exercise as you feel you can, but avoid lifting over 10 lbs as much as possible. Skin/Wound/Dressing Care Report to your healthcare provider any signs of infection, such as:: chills, fever, night sweats, increased pain, unusual drainage and unusual redness Dressing: You may remove the bandaids. Under the bandaids there are steri strips on the skin. Leave those in place until they fall off. After your drain is removed, you may shower. Until then, you may sponge bath, or shower if you are able to cover the drain site with a water proof dressing. The steri strips can get wet in the shower, and pat them dry afterward. You may cover them with a dry dressing if you prefer, but you don't have to if they don't bother you or drain any fluid. Visit Report/Discharge Packet Instructions: DI for an Appendectomy, DI for Laparoscopy, Hydromorphone, [facility]: Wound Care Discharges patient from system. Discharge Date/Time: 05/23/19 12:10 Quality VTE Deep Vein Thrombosis/Pulmonary Embolism Present on Admission: No
--- NOTE | 2019-05-23 11:33 | PC.NURSE ---
Pt is in much better spirits today. She is being discharged home today 1200. Given zofran for some discomfort and nausea and dilaudid 2mg for discomfort to lower abdomen. Incisions x3 covered with dressings, cdi. Pt is going to go home with GUSTAVO drain and she will be recording output, patients mother is a retired RN and will be helping with this. IV will be taken out and pts mom will drive her home.
== END 2019-05-23 12:10 | disposition home or self-care (01) | DRG 340 ==
LOC: ED 15:54 → AC 15:58
PROVIDERS: Emergency Medicine; Admitting Provider Surgery; Emergency Provider Nurse Practitioner Family; Visit Provider Surgery
PROC: 0DTJ4ZZ Resection of Appendix, Percutaneous Endoscopic Approach (ICD-10-PCS; CPT 44970; principal; 2019-05-21 17:45)
DX: K35.33 Acute appendicitis with perforation, localized peritonitis, and gangrene, with abscess (principal); K35.31 Acute appendicitis with localized peritonitis and gangrene, without perforation; G40.909 Epilepsy, unspecified, not intractable, without status epilepticus; Z98.84 Bariatric surgery status; F31.9 Bipolar disorder, unspecified
CPT/HCPCS: 36415; 44970; 74177; 80048; 80053; 81003; 81015; 81025; 82962; 83605; 83690; 83735; 84703; 85025; 85610; 85730; 87507; 93005; 96361; 96374; 96375; 99222; 99283; 99284; J1100; J1170; J1644; J1885; J2405; J2543; J2704; J3010; Q9967

== ENCOUNTER 2019-10-20 11:10 | Emergency (ER) | payer MEDICARE, OTHER, SELFPAY ==
[2019-05-21 16:26] VITALS: BMI 28.0
[2019-10-20 11:17] VITALS: BP 127/74; PULSE 67; RESP 18; TEMP 37.3; O2SAT 100
[2019-10-20 12:24] LABS: Add Manual Diff / Slide Review NO; Basophils Absolute Auto 100 /uL (0-100); Basophils Percent Auto 1.5 % (0-2); Eosinophils Absolute Auto 100 /uL (0-450); Eosinophils Percent Auto 1.1 % (2-4); Hematocrit 35.8 % (36-46); Hemoglobin 11.7 g/dL (12.0-16.0); Lymphocytes Absolute Auto 1700 /uL (1100-4500); Mean Corpuscular HGB Conc 32.8 % (30-36); Mean Corpuscular Hemoglobin 26.3 PG (26-34); Mean Corpuscular Volume 80.2 fL (80-100); Monocytes Absolute Auto 500 /uL (0-900); Monocytes Percent Auto 6.6 % (3-14); Neutrophils Absolute Auto 5100 /uL (1500-7000); Neutrophils Percent Auto 67.8 % (50-75); Platelet Count 362 X10^3/uL (150-400); Red Blood Cell Count 4.47 X10^6/uL (4.0-5.2); Red Cell Distribution Width 15.6 % (11.6-14.8); White Blood Cell Count 7.5 X10^3/uL (4.5-11.0)
[2019-10-20] MEDS: SODIUM CHLORIDE 0.9% 1,000 ML 1000 ML IV (12:27)
[2019-10-20] MEDS: KETOROLAC 60 MG/2 ML VIAL 30 MG IV (12:28)
[2019-10-20] MEDS: ONDANSETRON 4 MG/2 ML INJ IV (12:28)
[2019-10-20 12:34] LABS: Alanine Aminotransferase 12 IU/L (<35); Albumin 5.1 g/dL (3.5-5.0); Albumin Globulin Ratio 1.6 (1.0-2.8); Alkaline Phosphatase 93 U/L (38-126); Aspartate Aminotransferase 33 IU/L (14-36); BUN Creatinine Ratio 17.3 (6-22); Bilirubin Total 0.3 mg/dL (0.2-1.3); Blood Urea Nitrogen 13 mg/dL (7-17); Calcium 9.5 mg/dL (8.4-10.2); Carbon Dioxide 25 mmol/L (22-32); Chloride 100 mmol/L (98-107); Estimated Glomerular Filt Rate > 60.0 mL/min (>60); Globulin 3.1 g/dL (1.7-4.1); Glucose 83 mg/dL (70-100); HEMOLYSIS < 15 (0-50); Lipase 125 U/L (23-300); Potassium 4.2 mmol/L (3.4-5.1); Sodium 136 mmol/L (137-145); Total Protein 8.2 g/dL (6.3-8.2)
[2019-10-20 12:38] LABS: C-Reactive Protein Quant < 0.5 mg/dL (<1.0)
[2019-10-20 12:52] LABS: Procalcitonin < 0.05 ng/mL (<0.5)
[2019-10-20 12:57] LABS: Erythrocyte Sedimentation Rate 5 MM/HR (0-20)
[2019-10-20 13:05] VITALS: BP 133/79; PULSE 63; RESP 16; O2SAT 100
--- NOTE | 2019-10-20 13:07 | DI.CT.S_ITS ---
PROCEDURE: CT ABDOMEN PELVIS W CON INDICATIONS: RLQ pain and swelling, fever, hx of appendectomy in 06/05 TECHNIQUE: After the administration of intravenous contrast, 5 mm thick sections acquired from the diaphragm to the symphysis. 5 mm coronal and sagittal reformats were acquired. For radiation dose reduction, the following was used: automated exposure control, adjustment of mA and/or kV according to patient size. COMPARISON: [facility], CT, CT ABDOMEN PELVIS W CON, 05/21/2019, 13:24. FINDINGS: Image quality: Excellent. ABDOMEN: Lung bases: Lung bases are clear. Heart size is normal. Solid organs: Liver is normal in size and enhancement. Gallbladder demonstrates no significant CT abnormality. Biliary system is non dilated for a post cholecystectomy patient. Pancreas enhances normally. Spleen is normal in size and enhancement. No adrenal nodules. Kidneys demonstrate normal size and enhancement, without hydronephrosis. Peritoneum and bowel: Gastric bypass surgery change can be seen. Prior appendectomy changes are seen. There is mild fatty metaplasia seen involving the wall of the terminal ileum. Bowel loops otherwise demonstrate normal wall thickness and caliber. No free fluid or air. Nodes and vessels: No retroperitoneal or mesenteric adenopathy by size criteria. Aorta and inferior vena cava are normal in size. Miscellaneous: No ventral hernias. PELVIS: Genitourinary: Bladder wall thickness is normal. Miscellaneous: No inguinal hernias or adenopathy. Bones: No suspicious bony lesions. No vertebral body compression fractures. Mild levoconvex scoliotic curvature is noted. IMPRESSION: Mild fatty metaplasia can be seen involving the wall of the terminal ileum. This can be seen in patient's with Crohn's disease. Please correlate with patient history. Status post cholecystectomy, without additional focal right lower quadrant abnormality. Incidental note is made of: Cholecystectomy Gastric bypass Dictated by: Andrei Love M.D. on 10/20/2019 at 12:38 Approved by: Andrei Love M.D. on 10/20/2019 at 12:41
[2019-10-20 13:15] LABS: Bacteria Urine Occasional (0-1); Culture Indicated Urine Cult Not Indicated; RBC Urine 5-10/HPF (0-5/HPF); WBC Urine 0-1/HPF (0-5/HPF)
--- NOTE | 2019-10-20 14:33 | PC.NURSE ---
Patient reported that her headache returned and the flet Tachy. I turned down the light. HR was 63 at time of assessment as evidenced by radial pulse palpation.
[2019-10-20 14:34] VITALS: BP 120/64; PULSE 63; RESP 12; O2SAT 100
[2019-10-20 15:37] VITALS: BP 121/66; PULSE 63; RESP 17; O2SAT 98
--- NOTE | 2019-10-20 20:38 | ED.ABDPAIN ---
HPI - Abdominal Pain <PORTILLO RamírezP - Last Filed: 10/20/19 21:03> General Chief Complaint: Abdominal Pain Stated Complaint: growth in post op g/p area, painful Time Seen by Provider: 10/20/19 11:50 Source: patient Mode of arrival: Ambulatory Limitations: no limitations History of Present Illness HPI narrative: This is a 34 year female, former smoker, who presents to ED with chief complain of right lower quadrant pain where she had GUSTAVO drainage after appendectomy in May with swelling and bruise. Patient has history of gastric bypass, cholecystectomy, bipolar disorder, seizure disorder, and . Patient reports she has light bruise on right lower quadrant for last 9 weeks after the appendectomy. Patient reports she noticed her temperature went up to 101.5 this morning with fatigued, nausea, and growth in right lower quadrant which has been increasing in size and hard as a rock to palpate. Patient denies chest pain, breathing difficulty, dizziness. Patient reports pain as 7/10. LMP was 07/02/19 and she currently gets Depo injection for control method. Related Data Home Medications Medication Instructions Recorded Confirmed Mynatal 1 cap PO DAILY #0 07/10/17 05/30/19 cholecalciferol (vitamin D3) 0 unit PO DAILY #0 07/10/17 05/30/19 [Vitamin D3] diphenhydramine HCl [Benadryl 25 mg PO PRN PRN #0 07/10/17 05/30/19 Allergy] docusate sodium 100 mg PO BIDP PRN #0 07/10/17 05/30/19 montelukast [Singulair] 10 mg PO DAILY #0 07/10/17 05/30/19 ondansetron HCl 4 mg PO Q4HP PRN #0 07/10/17 05/30/19 pantoprazole [Protonix] 20 mg PO DAILY #0 07/10/17 05/30/19 simethicone [Gas-X Extra Strength] 125 mg PO PRN PRN #0 07/10/17 05/30/19 vitamin B complex [B 1 tab PO DAILY #0 07/10/17 05/30/19 Complex-Vitamin B12] Rexulti 1 mg PO DAILY 05/21/19 05/30/19 diazepam 5 mg PO TID PRN 05/21/19 05/30/19 fluoxetine 40 mg PO QPM 05/21/19 05/30/19 oxcarbazepine 300 mg PO QPM 05/21/19 05/30/19 Previous Rx's Medication Instructions Recorded docusate sodium 100 mg PO BID #60 cap 05/22/19 hydromorphone [Dilaudid] 4 mg PO Q4-6H PRN #30 tab MDD 4 05/23/19 tabs ondansetron 4 mg PO Q6H PRN #30 tab 05/23/19 pantoprazole [Protonix] 20 mg PO DAILY #30 tab 05/23/19 hydrocodone-acetaminophen [[place]] 1 tab PO Q12H PRN #10 tab 10/20/19 ondansetron 4 mg PO BID-TID PRN #10 tab 10/20/19 Allergies Allergy/AdvReac Type Severity Reaction Status Date / Time aripiprazole [From ABILIFY] Allergy Intermediate Verified 05/30/19 14:07 carbamazepine [From TEGRETOL] Allergy Intermediate Verified 05/30/19 14:07 divalproex sodium Allergy Intermediate Verified 05/30/19 14:07 [From DEPAKOTE] lithium [LITHIUM] Allergy Intermediate Verified 05/30/19 14:07 lurasidone [From LATUDA] Allergy Intermediate Verified 05/30/19 14:07 morphine [MORPHINE] Allergy Intermediate Verified 05/30/19 14:07 sulfamethoxazole Allergy Intermediate Verified 05/30/19 14:07 [From BACTRIM] tramadol [TRAMADOL] Allergy Intermediate Verified 05/30/19 14:07 trimethoprim [From BACTRIM] Allergy Intermediate Verified 05/30/19 14:07 Review of Systems <GUIDO Ramírez - Last Filed: 10/20/19 21:03> Review of Systems Narrative: General: See HPI HEENT: Denies sinus pain, ear pain, sore throat, difficulty swallowing, dizziness. Respiratory: Denies dyspnea, cough, wheezing, hemoptysis, sputum. Cardiovascular: Denies chest pain, palpitations, orthopnea, edema. Gastrointestinal: See HPI : Denies dysuria, frequency, incontinence, hematuria, urinary retention. Musculoskeletal: Denies weakness, joint pain or bony pain. Skin: Denies rash, skin lesions, or other. Neurologic: Denies weakness, headache, numbness, change in speech, confusion, seizures, incoordination. Psychiatric: No concerning psychosocial issues. 12-point review of systems is negative except for those stated above. Patient History <GUIDO Ramírez - Last Filed: 10/20/19 21:03> Medical History delivery delivered (Acute) Epilepsy (Acute) Surgical History Gastric bypass status for obesity (Acute) History of (Acute) Hx of appendectomy (Acute) Hx of cholecystectomy (Acute) Social History household members: spouse and children Smoking Status: Former smoker alcohol intake: current Smoking Status: Former smoker alcohol intake frequency: holidays/special occasions only Substance Use Type: marijuana Exam <GUIDO Ramírez - Last Filed: 10/20/19 21:03> Narrative Exam Narrative: GEN: Alert, oriented x 3, well appearing and nourished, and in no acute distress. Head: Normal cephalic, atraumatic. No scalp or temporal tenderness, palpable mass or rash. EYES: Pupils are equal, round, and reactive to light and accommodation. Extraocular muscles are intact bilaterally. There is no subconjunctival hemorrhage, exudate and sclera non-icteric. ENT: Hearing grossly intact. Nose without bleeding, purulent discharge or deviation. Mucous membrane moist, no mucosal lesion. Throat without erythema, tonsillar hypertrophy or exudate. Uvula in midline, airway patent. Neck: Trachea in midline. No JVD, non-tender without lymphadenopathy. No masses or thyroid megaly. Supple, non-tender and no meningeal signs. CARDIAC: Normal regular rate and rhythm without murmurs, gallops, or rubs. No chest wall tenderness. No peripheral edema, cyanosis or pallor. Capillary refill is less than 2 seconds. RESPIRATORY: Lungs are clear to auscultate bilaterally. No cough, wheezes, rales, or rhonchi. No stridor, respiratory distress, increase work of breathing, or accessary muscle used. ABD: Abdomen soft and non-distended. Right lower quadrant tender and hard nodule appreciated during palpation. No guarding or rebound tenderness to palpate. Bowel sounds are normal in all 4 quadrants. There is no palpable masses or organomegaly. EXT: Full painless ROM of all extremities with no loss of sensation, strength, effusion or edema. SKIN: Ecchymosis to right lower abdomen without warmth to palpate. Warm, dry, normal color for patient. No erythema, lesions or rash over visible areas. BACK: Nontender without deformity or crepitance. No flank tenderness. NEUROLOGICAL: Alert and oriented to place, time and person. Sensation and motor function intact bilaterally. No facial droops, dysphasia. PSYCHIATRIC: Good judgement and reason, without hallucinations, abnormal affect or abnormal behaviors during the examination. Patient is not suicidal. Initial Vital Signs Initial Vital Signs: Vital Signs Temperature 99.1 F 10/20/19 11:17 Pulse Rate 67 10/20/19 11:17 Respiratory Rate 18 10/20/19 11:17 Blood Pressure 127/74 10/20/19 11:17 Pulse Oximetry 100 10/20/19 11:17 <Jh Gandhi MD - Last Filed: 10/21/19 08:19> Initial Vital Signs Initial Vital Signs: Vital Signs Temperature 99.1 F 10/20/19 11:17 Pulse Rate 67 10/20/19 11:17 Respiratory Rate 18 10/20/19 11:17 Blood Pressure 127/74 10/20/19 11:17 Pulse Oximetry 100 10/20/19 11:17 Scores <GUIDO Ramírez - Last Filed: 10/20/19 21:03> GCS [place] coma scale eye opening: Spontaneous Levi coma scale verbal response: Orientated [place] coma scale motor response: Obey commands [place] coma scale total score: 15 Course <GUIDO Ramírez - Last Filed: 10/20/19 21:03> Orders Ordered: Discontinued Medications Sodium Chloride (Normal Saline 0.9%) 1,000 mls @ 1,000 mls/hr IV BOLUS ONE Stop: 10/20/19 13:16 Last Infusion: 10/20/19 15:49 Dose: 0 mls/hr Documented by: Admin: 10/20/19 12:27 Dose: 1,000 mls/hr Documented by: MORA Ketorolac Tromethamine (Toradol) 30 mg IV NOW ONE Stop: 10/20/19 12:17 Last Admin: 10/20/19 12:28 Dose: 30 mg Documented by: MORA Ondansetron HCl (Zofran) 4 mg IV NOW ONE Stop: 10/20/19 12:17 Last Admin: 10/20/19 12:28 Dose: 4 mg Documented by: MORA Vital Signs Vital signs: Vital Signs - 8 hr 10/20/19 13:05 10/20/19 14:34 10/20/19 15:37 Pulse Rate 63 63 63 Respiratory Rate 16 12 17 Blood Pressure [Left Arm] 133/79 121/66 Blood Pressure [Right Arm] 120/64 Pulse Oximetry 100 100 98 <Jh Gandhi MD - Last Filed: 10/21/19 08:19> Orders Ordered: Discontinued Medications Sodium Chloride (Normal Saline 0.9%) 1,000 mls @ 1,000 mls/hr IV BOLUS ONE Stop: 10/20/19 13:16 Last Infusion: 10/20/19 15:49 Dose: 0 mls/hr Documented by: Admin: 10/20/19 12:27 Dose: 1,000 mls/hr Documented by: MORA Ketorolac Tromethamine (Toradol) 30 mg IV NOW ONE Stop: 10/20/19 12:17 Last Admin: 10/20/19 12:28 Dose: 30 mg Documented by: MORA Ondansetron HCl (Zofran) 4 mg IV NOW ONE Stop: 10/20/19 12:17 Last Admin: 10/20/19 12:28 Dose: 4 mg Documented by: MORA Vital Signs Vital signs: Vital Signs - 8 hr 10/20/19 13:05 10/20/19 14:34 10/20/19 15:37 Pulse Rate 63 63 63 Respiratory Rate 16 12 17 Blood Pressure [Left Arm] 133/79 121/66 Blood Pressure [Right Arm] 120/64 Pulse Oximetry 100 100 98 MDM - Abdominal Pain <GUIDO Ramírez - Last Filed: 10/20/19 21:03> Differential Diagnosis Differential diagnosis: Likely abdominal pain, diverticulitis and other (Postsurgical abscess, small-bowel obstruction) Medical Records Attestation: I reviewed the patient's medical records. Lab Data Attestation: I reviewed the patient's lab results. Result diagrams: 10/20/19 11:55 10/20/19 11:55 Labs: Lab Results 10/20/19 10/20/19 10/20/19 Range/Units 11:55 11:55 11:55 WBC (4.5-11.0) X10^3/uL RBC (4.0-5.2) X10^6/uL Hgb (12.0-16.0) g/dL Hct (36-46) % MCV (80-100) fL MCH (26-34) PG MCHC (30-36) % RDW (11.6-14.8) % Plt Count (150-400) X10^3/uL Neut % (Auto) (50-75) % Lymph % (Auto) (25-40) % [place] % (Auto) (3-14) % Eos % (Auto) (2-4) % Baso % (Auto) (0-2) % Neut # (Auto) (6903-0450) /uL Lymph # (Auto) (0019-2323) /uL [place] # (Auto) (0-900) /uL Eos # (Auto) (0-450) /uL Baso # (Auto) (0-100) /uL ESR 5 (0-20) MM/HR Sodium (137-145) mmol/L Potassium (3.4-5.1) mmol/L Chloride (98-107) mmol/L Carbon Dioxide (22-32) mmol/L BUN (7-17) mg/dL Creatinine (0.52-1.04) mg/dL Estimated GFR (>60) mL/min BUN/Creatinine Ratio (6-22) Glucose (70-100) mg/dL Lactate 1.0 (0.7-2.1) mmol/L Calcium (8.4-10.2) mg/dL Total Bilirubin (0.2-1.3) mg/dL AST (14-36) IU/L ALT (<35) IU/L Alkaline Phosphatase (38-126) U/L C-Reactive Protein (<1.0) mg/dL Total Protein (6.3-8.2) g/dL Albumin (3.5-5.0) g/dL Globulin (1.7-4.1) g/dL Albumin/Globulin Ratio (1.0-2.8) Lipase (23-300) U/L Procalcitonin < 0.05 (<0.5) ng/mL Urine RBC (0-5/HPF) Urine WBC (0-5/HPF) Urine Bacteria (None) Ur Culture Indicated? 10/20/19 10/20/19 10/20/19 Range/Units 11:55 11:55 11:55 WBC 7.5 (4.5-11.0) X10^3/uL RBC 4.47 (4.0-5.2) X10^6/uL Hgb 11.7 L (12.0-16.0) g/dL Hct 35.8 L (36-46) % MCV 80.2 (80-100) fL MCH 26.3 (26-34) PG MCHC 32.8 (30-36) % RDW 15.6 H (11.6-14.8) % Plt Count 362 (150-400) X10^3/uL Neut % (Auto) 67.8 (50-75) % Lymph % (Auto) 23.0 L (25-40) % [place] % (Auto) 6.6 (3-14) % Eos % (Auto) 1.1 L (2-4) % Baso % (Auto) 1.5 (0-2) % Neut # (Auto) 5100 (8546-8487) /uL Lymph # (Auto) 1700 (7099-5210) /uL [place] # (Auto) 500 (0-900) /uL Eos # (Auto) 100 (0-450) /uL Baso # (Auto) 100 (0-100) /uL ESR (0-20) MM/HR Sodium 136 L (137-145) mmol/L Potassium 4.2 (3.4-5.1) mmol/L Chloride 100 (98-107) mmol/L Carbon Dioxide 25 (22-32) mmol/L BUN 13 (7-17) mg/dL Creatinine 0.75 (0.52-1.04) mg/dL Estimated GFR > 60.0 (>60) mL/min BUN/Creatinine Ratio 17.3 (6-22) Glucose 83 (70-100) mg/dL Lactate (0.7-2.1) mmol/L Calcium 9.5 (8.4-10.2) mg/dL Total Bilirubin 0.3 (0.2-1.3) mg/dL AST 33 (14-36) IU/L ALT 12 (<35) IU/L Alkaline Phosphatase 93 (38-126) U/L C-Reactive Protein < 0.5 (<1.0) mg/dL Total Protein 8.2 (6.3-8.2) g/dL Albumin 5.1 H (3.5-5.0) g/dL Globulin 3.1 (1.7-4.1) g/dL Albumin/Globulin Ratio 1.6 (1.0-2.8) Lipase 125 (23-300) U/L Procalcitonin (<0.5) ng/mL Urine RBC (0-5/HPF) Urine WBC (0-5/HPF) Urine Bacteria (None) Ur Culture Indicated? 10/20/19 Range/Units 12:40 WBC (4.5-11.0) X10^3/uL RBC (4.0-5.2) X10^6/uL Hgb (12.0-16.0) g/dL Hct (36-46) % MCV (80-100) fL MCH (26-34) PG MCHC (30-36) % RDW (11.6-14.8) % Plt Count (150-400) X10^3/uL Neut % (Auto) (50-75) % Lymph % (Auto) (25-40) % [place] % (Auto) (3-14) % Eos % (Auto) (2-4) % Baso % (Auto) (0-2) % Neut # (Auto) (9527-6347) /uL Lymph # (Auto) (0516-5885) /uL [place] # (Auto) (0-900) /uL Eos # (Auto) (0-450) /uL Baso # (Auto) (0-100) /uL ESR (0-20) MM/HR Sodium (137-145) mmol/L Potassium (3.4-5.1) mmol/L Chloride (98-107) mmol/L Carbon Dioxide (22-32) mmol/L BUN (7-17) mg/dL Creatinine (0.52-1.04) mg/dL Estimated GFR (>60) mL/min BUN/Creatinine Ratio (6-22) Glucose (70-100) mg/dL Lactate (0.7-2.1) mmol/L Calcium (8.4-10.2) mg/dL Total Bilirubin (0.2-1.3) mg/dL AST (14-36) IU/L ALT (<35) IU/L Alkaline Phosphatase (38-126) U/L C-Reactive Protein (<1.0) mg/dL Total Protein (6.3-8.2) g/dL Albumin (3.5-5.0) g/dL Globulin (1.7-4.1) g/dL Albumin/Globulin Ratio (1.0-2.8) Lipase (23-300) U/L Procalcitonin (<0.5) ng/mL Urine RBC 5-10/hpf H (0-5/HPF) Urine WBC 0-1/hpf (0-5/HPF) Urine Bacteria Occasional (0-1) (None) Ur Culture Indicated? Cult not indicated Point of care testing: Point of Care Testing Test Results Negative Urine Dip Bedside Urine Glucose Negative Bedside Urine Bilirubin - Negative Bedside Urine Ketone ++ 40 Urine Specific [place] 1.020 Bedside Urine Occult Blood + Bedside Urine pH 6.0 Bedside Urine Protein - Negative Bedside Urine Urobilinogen - Negative Bedside Urine Nitrite - Negative Bedside Urine Leukocytes - Negative Esterase Imaging Data CT scan - abdomen/pelvis: Radiologist's Impression: [address] [address] [address] Scan Report Signed Patient: Amalia Crain EMR#: [id number] : 1985Acct:[id number] Age/Sex: 34 / FDate of Service: 10/20/19 Loc: ED Accession Number: [id number] Procedure: CT abdomen pelvis w con Ordering Provider: [place] PROCEDURE: CT ABDOMEN PELVIS W CON INDICATIONS: RLQ pain and swelling, fever, hx of appendectomy in 06/05 TECHNIQUE: After the administration of intravenous contrast, 5 mm thick sections acquired from the diaphragm to the symphysis. 5 mm coronal and sagittal reformats were acquired. For radiation dose reduction, the following was used: automated exposure control, adjustment of mA and/or kV according to patient size. COMPARISON: [facility], CT, CT ABDOMEN PELVIS W CON, 05/21/2019, 13:24. FINDINGS: Image quality: Excellent. ABDOMEN: Lung bases: Lung bases are clear. Heart size is normal. Solid organs: Liver is normal in size and enhancement. Gallbladder demonstrates no significant CT abnormality. Biliary system is non dilated for a post cholecystectomy patient. Pancreas enhances normally. Spleen is normal in size and enhancement. No adrenal nodules. Kidneys demonstrate normal size and enhancement, without hydronephrosis. Peritoneum and bowel: Gastric bypass surgery change can be seen. Prior appendectomy changes are seen. There is mild fatty metaplasia seen involving the wall of the terminal ileum. Bowel loops otherwise demonstrate normal wall thickness and caliber. No free fluid or air. Nodes and vessels: No retroperitoneal or mesenteric adenopathy by size criteria. Aorta and inferior vena cava are normal in size. Miscellaneous: No ventral hernias. PELVIS: Genitourinary: Bladder wall thickness is normal. Miscellaneous: No inguinal hernias or adenopathy. Bones: No suspicious bony lesions. No vertebral body compression fractures. Mild levoconvex scoliotic curvature is noted. IMPRESSION: Mild fatty metaplasia can be seen involving the wall of the terminal ileum. This can be seen in patient's with Crohn's disease. Please correlate with patient history. Status post cholecystectomy, without additional focal right lower quadrant abnormality. Incidental note is made of: Cholecystectomy Gastric bypass Dictated by: Andrei Love M.D. on 10/20/2019 at 12:38 Approved by: Andrei Love M.D. on 10/20/2019 at 12:41 MDM Narrative Medical decision making narrative: This is a 34 year female who has history of recent appendectomy in May 2019 with GUSTAVO in placement, gastric bypass, cholecystectomy, , bipolar disease and seizure disorder presents to ED with right lower quadrant pain where she had GUSTAVO inplaced with fever with Tmax of 101.5, chills, bruise, nausea and fatigue. Abdominal physical exam exhibited tenderness to palpate and light ecchymosis on right lower quadrant. Surrounding site was not warmth. There is a small but hard, nodule-like, appreciated during deep palpation. Patient is afebrile with within normal vital signs while in ED. Considered abscess but there was no leukocytosis with normal CRP, ESR, procalcitonin, lactate which were assuring. Platelet count was 362. Slightly elevated PT of 14.8 with normal PTT. Chemistry tests were unremarkable. Urine test was negative for urine nitrite and urine leukocytes esterase. Urine test was negative. Abdominal/pelvis CT shows no retroperitoneal or mesenteric adenopathy, normal bowel loops without free air or fluids. There is mild fatty metaplasia seen involving the wall of terminal ileum. There is no abscess was appreciated per CT test. Findings were shared with patient. Patient advised to follow-up with [facility] and PCP with return precautions. Patient informed she may need GI scope in the future if her pain persists. Patient discharged to home with few tabs of [place] for pain management and patient verbalized the understanding and in agreement with treatment plan. <Jh Gandhi MD - Last Filed: 10/21/19 08:19> Lab Data Labs: Lab Results 10/20/19 10/20/19 10/20/19 Range/Units 11:55 11:55 11:55 WBC (4.5-11.0) X10^3/uL RBC (4.0-5.2) X10^6/uL Hgb (12.0-16.0) g/dL Hct (36-46) % MCV (80-100) fL MCH (26-34) PG MCHC (30-36) % RDW (11.6-14.8) % Plt Count (150-400) X10^3/uL Neut % (Auto) (50-75) % Lymph % (Auto) (25-40) % [place] % (Auto) (3-14) % Eos % (Auto) (2-4) % Baso % (Auto) (0-2) % Neut # (Auto) (8026-3570) /uL Lymph # (Auto) (0068-1193) /uL [place] # (Auto) (0-900) /uL Eos # (Auto) (0-450) /uL Baso # (Auto) (0-100) /uL ESR 5 (0-20) MM/HR Sodium (137-145) mmol/L Potassium (3.4-5.1) mmol/L Chloride (98-107) mmol/L Carbon Dioxide (22-32) mmol/L BUN (7-17) mg/dL Creatinine (0.52-1.04) mg/dL Estimated GFR (>60) mL/min BUN/Creatinine Ratio (6-22) Glucose (70-100) mg/dL Lactate 1.0 (0.7-2.1) mmol/L Calcium (8.4-10.2) mg/dL Total Bilirubin (0.2-1.3) mg/dL AST (14-36) IU/L ALT (<35) IU/L Alkaline Phosphatase (38-126) U/L C-Reactive Protein (<1.0) mg/dL Total Protein (6.3-8.2) g/dL Albumin (3.5-5.0) g/dL Globulin (1.7-4.1) g/dL Albumin/Globulin Ratio (1.0-2.8) Lipase (23-300) U/L Procalcitonin < 0.05 (<0.5) ng/mL Urine RBC (0-5/HPF) Urine WBC (0-5/HPF) Urine Bacteria (None) Ur Culture Indicated? 10/20/19 10/20/19 10/20/19 Range/Units 11:55 11:55 11:55 WBC 7.5 (4.5-11.0) X10^3/uL RBC 4.47 (4.0-5.2) X10^6/uL Hgb 11.7 L (12.0-16.0) g/dL Hct 35.8 L (36-46) % MCV 80.2 (80-100) fL MCH 26.3 (26-34) PG MCHC 32.8 (30-36) % RDW 15.6 H (11.6-14.8) % Plt Count 362 (150-400) X10^3/uL Neut % (Auto) 67.8 (50-75) % Lymph % (Auto) 23.0 L (25-40) % [place] % (Auto) 6.6 (3-14) % Eos % (Auto) 1.1 L (2-4) % Baso % (Auto) 1.5 (0-2) % Neut # (Auto) 5100 (2505-2122) /uL Lymph # (Auto) 1700 (2502-8216) /uL [place] # (Auto) 500 (0-900) /uL Eos # (Auto) 100 (0-450) /uL Baso # (Auto) 100 (0-100) /uL ESR (0-20) MM/HR Sodium 136 L (137-145) mmol/L Potassium 4.2 (3.4-5.1) mmol/L Chloride 100 (98-107) mmol/L Carbon Dioxide 25 (22-32) mmol/L BUN 13 (7-17) mg/dL Creatinine 0.75 (0.52-1.04) mg/dL Estimated GFR > 60.0 (>60) mL/min BUN/Creatinine Ratio 17.3 (6-22) Glucose 83 (70-100) mg/dL Lactate (0.7-2.1) mmol/L Calcium 9.5 (8.4-10.2) mg/dL Total Bilirubin 0.3 (0.2-1.3) mg/dL AST 33 (14-36) IU/L ALT 12 (<35) IU/L Alkaline Phosphatase 93 (38-126) U/L C-Reactive Protein < 0.5 (<1.0) mg/dL Total Protein 8.2 (6.3-8.2) g/dL Albumin 5.1 H (3.5-5.0) g/dL Globulin 3.1 (1.7-4.1) g/dL Albumin/Globulin Ratio 1.6 (1.0-2.8) Lipase 125 (23-300) U/L Procalcitonin (<0.5) ng/mL Urine RBC (0-5/HPF) Urine WBC (0-5/HPF) Urine Bacteria (None) Ur Culture Indicated? 10/20/19 Range/Units 12:40 WBC (4.5-11.0) X10^3/uL RBC (4.0-5.2) X10^6/uL Hgb (12.0-16.0) g/dL Hct (36-46) % MCV (80-100) fL MCH (26-34) PG MCHC (30-36) % RDW (11.6-14.8) % Plt Count (150-400) X10^3/uL Neut % (Auto) (50-75) % Lymph % (Auto) (25-40) % [place] % (Auto) (3-14) % Eos % (Auto) (2-4) % Baso % (Auto) (0-2) % Neut # (Auto) (9104-0864) /uL Lymph # (Auto) (5644-8145) /uL [place] # (Auto) (0-900) /uL Eos # (Auto) (0-450) /uL Baso # (Auto) (0-100) /uL ESR (0-20) MM/HR Sodium (137-145) mmol/L Potassium (3.4-5.1) mmol/L Chloride (98-107) mmol/L Carbon Dioxide (22-32) mmol/L BUN (7-17) mg/dL Creatinine (0.52-1.04) mg/dL Estimated GFR (>60) mL/min BUN/Creatinine Ratio (6-22) Glucose (70-100) mg/dL Lactate (0.7-2.1) mmol/L Calcium (8.4-10.2) mg/dL Total Bilirubin (0.2-1.3) mg/dL AST (14-36) IU/L ALT (<35) IU/L Alkaline Phosphatase (38-126) U/L C-Reactive Protein (<1.0) mg/dL Total Protein (6.3-8.2) g/dL Albumin (3.5-5.0) g/dL Globulin (1.7-4.1) g/dL Albumin/Globulin Ratio (1.0-2.8) Lipase (23-300) U/L Procalcitonin (<0.5) ng/mL Urine RBC 5-10/hpf H (0-5/HPF) Urine WBC 0-1/hpf (0-5/HPF) Urine Bacteria Occasional (0-1) (None) Ur Culture Indicated? Cult not indicated Point of care testing: Point of Care Testing Test Results Negative Urine Dip Bedside Urine Glucose Negative Bedside Urine Bilirubin - Negative Bedside Urine Ketone ++ 40 Urine Specific [place] 1.020 Bedside Urine Occult Blood + Bedside Urine pH 6.0 Bedside Urine Protein - Negative Bedside Urine Urobilinogen - Negative Bedside Urine Nitrite - Negative Bedside Urine Leukocytes - Negative Esterase Discharge Plan Departure Patient Disposition: Home Clinical Impression: Abdominal pain Qualifiers: Abdominal location: right lower quadrant Qualified Code(s): R10.31 - Right lower quadrant pain Discharge Date/Time: 10/20/19 15:52 Instructions: DI for Abdominal Pain-Adult Activity Restrictions/Additional Instructions: You have been diagnosed with [right lower abdominal pain. Blood tests were unremarkable including lactate, procalcitonin, CRP, ESR, CBC and chemistry. CT test shows mild fatty med a pleasantly a involving the wall of terminal ileum. No indications for abscess in right lower quadrant.]. What to do: *Take your medications as directed. [place], narcotic medication, has been prescribed for severe pain. Otherwise please take [id number] Tylenol 650-1000 mg 3 times a day as needed for pain. You can add ibuprofen 400 mg with food up to 2 to 3 times a day for pain. Zofran as needed for nausea and vomiting. These 2 medication have been transmitted to [facility] in [place]. *Follow up with your primary care provider in 2-3 days, call for an appointment. Let them know you were seen in the ED and that we asked you to be seen in follow up. You may need GI scope in the future. Please contact [facility] to follow up on your pain, bruise on right lower quadrant since the appendectomy. *Return to ED if you have any new, worsening, or concerning symptoms, such as [if chest pain, breathing difficulty, fever, unable to tolerate fluids, or any acute concerns]. Prescriptions: New hydrocodone-acetaminophen [[place]] 5-325 mg tablet 1 tab PO Q12H PRN (Reason: pain) Qty: 10 RF: 0 ondansetron 4 mg tablet,disintegrating 4 mg PO BID-TID PRN (Reason: nausea and vomiting) Qty: 10 RF: 0 No Action pantoprazole [Protonix] 20 MG tablet,delayed release (DR/EC) 20 mg PO DAILY Qty: 0 RF: 0 ondansetron HCl 4 MG tablet 4 mg PO Q4HP PRN (Reason: Nausea) Qty: 0 RF: 0 montelukast [Singulair] 10 MG tablet 10 mg PO DAILY Qty: 0 RF: 0 Mynatal 1 EACH capsule 1 cap PO DAILY Qty: 0 RF: 0 cholecalciferol (vitamin D3) [Vitamin D3] 2,000 unit tablet 0 unit PO DAILY Qty: 0 RF: 0 simethicone [Gas-X Extra Strength] 125 mg Capsule 125 mg PO PRN PRN (Reason: gas) Qty: 0 RF: 0 docusate sodium 100 MG capsule 100 mg PO BIDP PRN (Reason: Constipation) Qty: 0 RF: 0 vitamin B complex [B Complex-Vitamin B12] 1 EACH tablet 1 tab PO DAILY Qty: 0 RF: 0 diphenhydramine HCl [Benadryl Allergy] 25 mg tablet 25 mg PO PRN PRN (Reason: Allergy Symptoms) Qty: 0 RF: 0 oxcarbazepine 300 mg tablet 300 mg PO QPM RF: 0 fluoxetine 20 mg capsule 40 mg PO QPM RF: 0 diazepam 5 mg tablet 5 mg PO TID PRN (Reason: Anxiety) RF: 0 Rexulti 1 mg tablet 1 mg PO DAILY RF: 0 docusate sodium 100 mg capsule 100 mg PO BID Qty: 60 RF: 0 hydromorphone [Dilaudid] 4 mg tablet 4 mg PO Q4-6H MDD 4 tabs PRN (Reason: pain) Qty: 30 RF: 0 pantoprazole [Protonix] 20 mg tablet,delayed release (DR/EC) 20 mg PO DAILY Qty: 30 RF: 2 ondansetron 4 mg tablet,disintegrating 4 mg PO Q6H PRN (Reason: nausea and vomiting) Qty: 30 RF: 0 Referrals: Janie Dupree MD [Primary Care Provider] - Jamilah Sanchez MD [Physician] - <Jh Gandhi MD - Last Filed: 10/21/19 08:19> [facility] Attestation: I was immediately available in the department for consultation. This documentation has been reviewed and I agree with assessment and plan. Supervised by Jh Gandhi MD
== END 2019-10-20 15:52 | disposition home or self-care (01) ==
PROVIDERS: Emergency Provider Nurse Practitioner Family; PCP Family Medicine
DX: R10.31 Right lower quadrant pain (principal)
CPT/HCPCS: 36415; 74177; 80053; 81003; 81015; 81025; 83605; 83690; 84145; 85025; 85651; 86140; 96361; 96374; 96375; 99284; J1885; J2405

== ENCOUNTER 2019-10-22 08:06 | Emergency (ER) | payer MEDICARE, OTHER, SELFPAY ==
[2019-05-21 16:26] VITALS: BMI 28.0
[2019-10-22] VITALS (9 sets, daily range): BP systolic 99–139; BP diastolic 58–83; PULSE 60–87; RESP 11–24; TEMP 37.1; O2SAT 95–100
--- NOTE | 2019-10-22 08:43 | ED.CHESTPAIN ---
HPI - Chest Pain General Chief Complaint: Chest Pain Stated Complaint: Sudden Left Chest px and Left arm numbess/burning Time Seen by Provider: 10/22/19 08:10 Source: EMS Mode of arrival: EMS History of Present Illness HPI narrative: 34-year-old woman with a complex history of bipolar type 1, gastric bypass surgery, seizure disorder, continued right lower quadrant pain presents after a ?episode this morning. The episode was sometime after 6:00 a.m. after she awoke, she was drinking coffee and then experienced severe stabbing left axilla and left chest pain with associated left arm weakness and numbness. She describes a ?loss of time associated with this episode that she has sometimes noted with prior seizures. She specifically notes that she had no aura he and is not experiencing her usual postictal episodes and did not have any spontaneous loss of bowel or bladder. Multiple complaints with postive ROS by system: Constitutional: Fevers nightly for the last 6 weeks. 102 last night with tylenol taken, 30lb unintended wt loss since May ENT: episode associated bilateral lateral neck pain CV: Chest pain described as sharp/stabbing deep in the axilla. No associated palpitations, dyspnea at rest or on exertion GI: intermittent Nausea, vomiting. Intermittent diarrhea that is thin and watery interspersed with thin black stool with deep red blood intermixed. Describes NO normal stools MS: with episode this am, Left arm complete motor and sensory loss. By time medics arrived, motor function returned but still completely numb in entire hand, volar portion of forarm and deltoid area. Skin: persistent bruise in RLQ that also seems to be recurring Psych: stable Depression without suicidal or homicidal ideation. 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 Heme: Persistent/recurrent bruising and reports of blood mixed in with stools since May when she had her appendix removed with a bout of acute appendicitis Related Data Home Medications Medication Instructions Recorded Confirmed Mynatal 1 cap PO DAILY #0 07/10/17 05/30/19 cholecalciferol (vitamin D3) 0 unit PO DAILY #0 07/10/17 05/30/19 [Vitamin D3] diphenhydramine HCl [Benadryl 25 mg PO PRN PRN #0 07/10/17 05/30/19 Allergy] docusate sodium 100 mg PO BIDP PRN #0 07/10/17 05/30/19 montelukast [Singulair] 10 mg PO DAILY #0 07/10/17 05/30/19 ondansetron HCl 4 mg PO Q4HP PRN #0 07/10/17 05/30/19 pantoprazole [Protonix] 20 mg PO DAILY #0 07/10/17 05/30/19 simethicone [Gas-X Extra Strength] 125 mg PO PRN PRN #0 07/10/17 05/30/19 vitamin B complex [B 1 tab PO DAILY #0 07/10/17 05/30/19 Complex-Vitamin B12] Rexulti 1 mg PO DAILY 05/21/19 05/30/19 diazepam 5 mg PO TID PRN 05/21/19 05/30/19 fluoxetine 40 mg PO QPM 05/21/19 05/30/19 oxcarbazepine 300 mg PO QPM 05/21/19 05/30/19 Previous Rx's Medication Instructions Recorded docusate sodium 100 mg PO BID #60 cap 05/22/19 hydromorphone [Dilaudid] 4 mg PO Q4-6H PRN #30 tab MDD 4 05/23/19 tabs ondansetron 4 mg PO Q6H PRN #30 tab 05/23/19 pantoprazole [Protonix] 20 mg PO DAILY #30 tab 05/23/19 hydrocodone-acetaminophen [Brighton] 1 tab PO Q12H PRN #10 tab 10/20/19 ondansetron 4 mg PO BID-TID PRN #10 tab 10/20/19 dexamethasone [Decadron] 10 mg PO DAILY #5 tab 10/22/19 Allergies Allergy/AdvReac Type Severity Reaction Status Date / Time aripiprazole [From ABILIFY] Allergy Intermediate Verified 05/30/19 14:07 carbamazepine [From TEGRETOL] Allergy Intermediate Verified 05/30/19 14:07 divalproex sodium Allergy Intermediate Verified 05/30/19 14:07 [From DEPAKOTE] lithium [LITHIUM] Allergy Intermediate Verified 05/30/19 14:07 lurasidone [From LATUDA] Allergy Intermediate Verified 05/30/19 14:07 morphine [MORPHINE] Allergy Intermediate Verified 05/30/19 14:07 sulfamethoxazole Allergy Intermediate Verified 05/30/19 14:07 [From BACTRIM] tramadol [TRAMADOL] Allergy Intermediate Verified 05/30/19 14:07 trimethoprim [From BACTRIM] Allergy Intermediate Verified 05/30/19 14:07 Review of Systems Review of Systems Narrative: See HPI, additional review includes MS: Describes chronic spine pain from the cervical spine to the tailbone for 10 years Respiratory: no Cough or wheeze : no Dysuria, hematuria, or flank pain Neuro: no Syncope, gait disturbance, headaches, vision changes Allergy: + Seasonal rhinorrhea, itchy eyes Endocrine: no specific change to Fatigue, heat or cold intolerance, very dry skin Patient History Medical History Bipolar 1 disorder (Acute) delivery delivered (Acute) Depression (Acute) Epilepsy (Acute) History of electroconvulsive therapy (Acute) Surgical History Gastric bypass status for obesity (Acute) History of (Acute) Hx of appendectomy (Acute) Hx of cholecystectomy (Acute) Social History household members: spouse and children Smoking Status: Former smoker alcohol intake: current Smoking Status: Former smoker alcohol intake frequency: holidays/special occasions only Substance Use Type: marijuana Exam Narrative Exam Narrative: General: Healthy appearing, in no acute distress. Able to give an excellent, complete and coherent history. Well-nourished well-developed HEENT: Moist mucous membranes, normal sclera with reactive pupils, Neck: No JVD, supple, tender bilaterally into the musculature without axial skeleton point tenderness and no nuchal rigidity Respiratory: Lungs are clear to auscultation, no wheezing no rales no rhonchi. Full and symmetrical air movement Cardiac: Regular rate and rhythm no murmurs, bruits or clicks on careful auscultation Abdomen: Soft, good bowel tones, no flank pain. RLQ with significant tenderness without rebound or guarding. There is a greenish healing bruise in the right lower quadrant just medial to the anterior iliac crest without associated trauma Skin: Warm and dry, no rashes Neurologic: 3+ reflexes bilateral upper and lower extremities without clonus. Decreased sensation in the left arm with no sensation to fine touch or cold over the deltoid and from the wrist distal as well as the arm in a C4 and C5 dermatomal distribution. Extremities: No trauma, well perfused Psych: Cooperative, appropriate insight and affect Initial Vital Signs Initial Vital Signs: Vital Signs Temperature 98.8 F 10/22/19 08:13 Pulse Rate 78 10/22/19 08:13 Respiratory Rate 14 10/22/19 08:13 Blood Pressure 132/60 10/22/19 08:13 Pulse Oximetry 100 10/22/19 08:13 Course Orders Ordered: ED Orders 10/22/19 09:40 Urinalysis and Microscopic Stat 10/22/19 09:53 CT head/brain wo con Stat 10/22/19 10:14 MR cervical spine wo/w con Stat MR head/brain wo/w con Stat Discontinued Medications Acetaminophen (Tylenol) 975 mg PO NOW ONE Stop: 10/22/19 14:46 Last Admin: 10/22/19 14:53 Dose: 975 mg Documented by: MORA Dexamethasone (Decadron) 10 mg IV NOW ONE Stop: 10/22/19 17:26 Last Admin: 10/22/19 17:38 Dose: 10 mg Documented by: SHEKHAR Diazepam (Valium) 5 mg PO PRN [facility] Last Admin: 10/22/19 14:53 Dose: 5 mg Documented by: MORA Diazepam (Valium) 5 mg PO NOW ONE Stop: 10/22/19 11:05 Last Admin: 10/22/19 11:09 Dose: 5 mg Documented by: MORA Diphenhydramine HCl (Benadryl) 25 mg IV NOW ONE Stop: 10/22/19 14:46 Last Admin: 10/22/19 14:56 Dose: 25 mg Documented by: MORA Ketorolac Tromethamine (Toradol) 15 mg IV NOW ONE Stop: 10/22/19 10:43 Last Admin: 10/22/19 11:00 Dose: 15 mg Documented by: WATSON Metoclopramide HCl (Reglan) 10 mg IV NOW ONE Stop: 10/22/19 14:46 Last Admin: 10/22/19 14:52 Dose: 10 mg Documented by: MORA Vital Signs Vital signs: Vital Signs - 8 hr 10/22/19 11:03 10/22/19 11:44 10/22/19 12:34 Pulse Rate 67 65 Respiratory Rate 17 11 L 12 Blood Pressure [Right Arm] 130/81 113/59 L 110/61 Pulse Oximetry 95 99 10/22/19 13:13 10/22/19 14:26 10/22/19 16:27 Pulse Rate 60 65 87 Respiratory Rate 24 18 20 Blood Pressure [Right Arm] 99/58 L 110/58 L 139/83 Pulse Oximetry 99 98 98 MDM - Chest Pain Medical Records Data Attestation: I reviewed the patient's medical records. Lab Data Attestation: I reviewed the patient's lab results. Lab results narrative: Labs are stable. Normal D-dimer. Normal TSH Result diagrams: 10/22/19 09:15 10/22/19 09:15 Labs: Lab Results 10/22/19 10/22/19 10/22/19 Range/Units 09:15 09:15 09:15 WBC 6.8 (4.5-11.0) X10^3/uL RBC 4.50 (4.0-5.2) X10^6/uL Hgb 11.9 L (12.0-16.0) g/dL Hct 35.8 L (36-46) % MCV 79.5 L (80-100) fL MCH 26.4 (26-34) PG MCHC 33.3 (30-36) % RDW 15.4 H (11.6-14.8) % Plt Count 337 (150-400) X10^3/uL Neut % (Auto) 83.7 H (50-75) % Lymph % (Auto) 10.3 L (25-40) % Brantley % (Auto) 5.2 (3-14) % Eos % (Auto) 0.1 L (2-4) % Baso % (Auto) 0.7 (0-2) % Neut # (Auto) 5700 (4349-4499) /uL Lymph # (Auto) 700 L (7556-7533) /uL Brantley # (Auto) 400 (0-900) /uL Eos # (Auto) 0 (0-450) /uL Baso # (Auto) 0 (0-100) /uL D-Dimer < 200 (<230) ng/mL Sodium 141 (137-145) mmol/L Potassium 4.0 (3.4-5.1) mmol/L Chloride 106 (98-107) mmol/L Carbon Dioxide 27 (22-32) mmol/L BUN 9 (7-17) mg/dL Creatinine 0.75 (0.52-1.04) mg/dL Estimated GFR > 60.0 (>60) mL/min BUN/Creatinine Ratio 12.0 (6-22) Glucose 97 (70-100) mg/dL Lactate (0.7-2.1) mmol/L Calcium 9.9 (8.4-10.2) mg/dL Total Bilirubin 0.2 (0.2-1.3) mg/dL AST 29 (14-36) IU/L ALT 12 (<35) IU/L Alkaline Phosphatase 84 (38-126) U/L Total Protein 8.1 (6.3-8.2) g/dL Albumin 5.0 (3.5-5.0) g/dL Globulin 3.1 (1.7-4.1) g/dL Albumin/Globulin Ratio 1.6 (1.0-2.8) Lipase 66 (23-300) U/L TSH (0.47-4.68) uIU/mL Urine Color Urine Appearance Urine pH (4.5-8.0) Ur Specific [place] (1.000-1.035) Urine Protein (Negative) Urine Glucose (UA) (Negative) g/dL Urine Ketones (NEGATIVE) Urine Occult Blood (Negative) Urine Nitrate (Negative) Urine Bilirubin (NEGATIVE) Urine Urobilinogen (0.2) E.U./dL Ur Leukocyte Esterase (NEGATIVE) Urine RBC (0-5/HPF) Urine WBC (0-5/HPF) Ur Squamous Epith Cells (0-5/HPF) Urine Bacteria (None) Ur Culture Indicated? 10/22/19 10/22/19 10/22/19 Range/Units 09:15 09:15 09:40 WBC (4.5-11.0) X10^3/uL RBC (4.0-5.2) X10^6/uL Hgb (12.0-16.0) g/dL Hct (36-46) % MCV (80-100) fL MCH (26-34) PG MCHC (30-36) % RDW (11.6-14.8) % Plt Count (150-400) X10^3/uL Neut % (Auto) (50-75) % Lymph % (Auto) (25-40) % Brantley % (Auto) (3-14) % Eos % (Auto) (2-4) % Baso % (Auto) (0-2) % Neut # (Auto) (1513-0123) /uL Lymph # (Auto) (1504-3400) /uL Brantley # (Auto) (0-900) /uL Eos # (Auto) (0-450) /uL Baso # (Auto) (0-100) /uL D-Dimer (<230) ng/mL Sodium (137-145) mmol/L Potassium (3.4-5.1) mmol/L Chloride (98-107) mmol/L Carbon Dioxide (22-32) mmol/L BUN (7-17) mg/dL Creatinine (0.52-1.04) mg/dL Estimated GFR (>60) mL/min BUN/Creatinine Ratio (6-22) Glucose (70-100) mg/dL Lactate 1.0 (0.7-2.1) mmol/L Calcium (8.4-10.2) mg/dL Total Bilirubin (0.2-1.3) mg/dL AST (14-36) IU/L ALT (<35) IU/L Alkaline Phosphatase (38-126) U/L Total Protein (6.3-8.2) g/dL Albumin (3.5-5.0) g/dL Globulin (1.7-4.1) g/dL Albumin/Globulin Ratio (1.0-2.8) Lipase (23-300) U/L TSH 0.63 (0.47-4.68) uIU/mL Urine Color Yellow Urine Appearance Clear Urine pH 7.0 (4.5-8.0) Ur Specific [place] 1.010 (1.000-1.035) Urine Protein Negative (Negative) Urine Glucose (UA) Negative (Negative) g/dL Urine Ketones Negative (NEGATIVE) Urine Occult Blood 1+ H (Negative) Urine Nitrate Negative (Negative) Urine Bilirubin Negative (NEGATIVE) Urine Urobilinogen 0.2 (0.2) E.U./dL Ur Leukocyte Esterase Negative (NEGATIVE) Urine RBC 1-5/hpf (0-5/HPF) Urine WBC 0-1/hpf (0-5/HPF) Ur Squamous Epith Cells 1-5 /hpf (0-5/HPF) Urine Bacteria Occasional (0-1) (None) Ur Culture Indicated? Cult not indicated Imaging Data Abdominal CT October: Radiologist's Impression: IMPRESSION: Mild fatty metaplasia can be seen involving the wall of the terminal ileum. This can be seen in patient's with Crohn's disease. Please correlate with patient history. Status post cholecystectomy, without additional focal right lower quadrant abnormality. Incidental note is made of: Cholecystectomy Gastric bypass Dictated by: Andrei Love M.D. on 10/20/2019 at 12:[address]: Radiologist's Impression: IMPRESSION: No acute intracranial process is seen. Dictated by: Andrei Love M.D. on 10/22/2019 at 9:23 MRI brain: Radiologist's Impression: IMPRESSION: No evidence of acute ischemia. No acute intracranial signal abnormality or enhancement. No white matter signal changes to suggest demyelination. MR Cervical spine: Radiologist's Impression: IMPRESSION: No evidence of acute ischemia. No acute intracranial signal abnormality or enhancement. No white matter signal changes to suggest demyelination. ECG Data Attestation: I personally reviewed and interpreted this ECG as follows: Interpretation: Sinus rhythm at a rate of 73 Normal axis, normal intervals No acute ischemic changes MDM Narrative Medical decision making narrative: Odd constellation of symptoms. Amalia has had difficulty accessing primary care or her psychiatrist due to Covid19. She is concerned about the ?episode? today and is hoping to get to some better answers. She is also concerned about the night fevers night sweats and 30 lb weight loss since her appendectomy as well as the recurrent bruising and pain in the right lower quadrant. CT scan on October 19 shows mild fatty metaplasia involving the wall of the terminal ileum. She has had colonoscopies previously and has never been told she had Crohn's disease. Of note her sed rate and procalcitonin were both unremarkable on October 19. She describes no risk factors for HIV or exposure to TB. 1015 clinical situation is reviewed with Dr. Tabor, radiologist. Assuming there is no obvious findings on the initial brain CT will move forward with MRI of brain and cervical spine MS protocol. This will include a MRI brain which will help us eliminate stroke as well. 1029 Med interaction reveiw. No side effects or interactions that might explain her overall symptoms specifically that night sweats, fevers or weight loss. Majority of the interactions are respiratory depression profile and QT syndrome and lowering of seizure threshold. 1050 developed headache coming back from CT scan will treat with Toradol as there is no evidence of intracranial bleed. MRI will not be for another number of hours. Will offer her lunch and to deal with acute current anxiety at 5 mg of Valium now. She is updated on results of workup to date 1445 Toradol was helpful for her headache however feels that is developing into a migraine. She has not had her usual amount of caffeine so will get her a cup of coffee, add oral Tylenol, IV Reglan and 25 mg of Benadryl. MRIs of brain and cervical spine do not suggest acute stroke or multiple sclerosis. There is no masses or tumors. The pain down the left arm is most likely radicular and secondary to 3-4 and C4-5 foraminal stenosis. Discussed findings. In light of the consistent hand numbness starting acutely this morning talk with neuro surgery to come up with a definitive plan for outpatient follow-up. Will place her on 3 days of Decadron. She has been on this before knows how to appropriately manage her as needed diazepam to help avoid any manic episodes. [address] Muhammad, neurosurgeon. has reveiwed MRI and he is not seeing a specific lesion that would explain the hand numbness. His recommendation was primary care follow-up perhaps neurology follow-up and did not feel that she was a surgical candidate at this time. Simultaneous return call from ortho, Dr. Kamara, his recommendation was and outpatient follow-up with one of the spine surgeons either Dr. Diego or Dr. Rockwell and recommended she call the office to schedule follow-up. In reviewing recommendations with patient, she is distraught with the possibility that she could be ?making this up. Again, long discussion regarding the dermatomal nature of the upper arm symptoms and the number of steps that we need to work through prior to considering this a psychogenic or conversion type reaction. I asked her specifically if she would do any damage to her arm or try cutting it off tonight. She stated specifically that she would not. I asked her specifically if she would call if she felt like she needed to pickling grader a knife were began cutting and she specifically said that she would and would return to the emergency department. Specifically asked if she would do any other physical injury or harm to herself and she says that she would not. Her is on his way to pick her. She is safe for home discharge Discharge Plan Departure Patient Disposition: Home Clinical Impression: Neuropathy, cervical (radicular) Discharge Date/Time: 10/22/19 18:21 Instructions: DI for Cervical Radiculopathy Activity Restrictions/Additional Instructions: Thank you for coming in today. I understand how frustrating it is to access care in the middle of the pandemic. Regarding the right lower quadrant pain, you need to schedule an outpatient follow-up with Dr. De La Garza. There is no evidence of acute infection or abscess. You likely will need a colonoscopy but this is not life-threatening. Regarding the acute numbness in the left arm and hand, you do not have multiple sclerosis, you are not having a stroke you do have significant nerve pinching along the left side of your neck. I am going to suggest 3 days of Decadron to help with the acute inflammation. Because the dense paresthesia (numbness) continues in that hand and arm I have also contacted our on-call orthopedic surgeon. He has recommended that you call the office tomorrow and schedule an appointment with [address] of our neurosurgeons either Dr. Diego or Dr. Rockwell. If you are feeling overwhelmed tonight or considering doing any actual damage to your numb arm or hand, please return to the emergency room. I am very hopeful that we will get you feeling better and return sensation and function to your left hand. I wish you the very best Prescriptions: New dexamethasone [Decadron] 4 mg tablet 10 mg PO DAILY Qty: 5 RF: 0 No Action pantoprazole [Protonix] 20 MG tablet,delayed release (DR/EC) 20 mg PO DAILY Qty: 0 RF: 0 ondansetron HCl 4 MG tablet 4 mg PO Q4HP PRN (Reason: Nausea) Qty: 0 RF: 0 montelukast [Singulair] 10 MG tablet 10 mg PO DAILY Qty: 0 RF: 0 Mynatal 1 EACH capsule 1 cap PO DAILY Qty: 0 RF: 0 cholecalciferol (vitamin D3) [Vitamin D3] 2,000 unit tablet 0 unit PO DAILY Qty: 0 RF: 0 simethicone [Gas-X Extra Strength] 125 mg Capsule 125 mg PO PRN PRN (Reason: gas) Qty: 0 RF: 0 docusate sodium 100 MG capsule 100 mg PO BIDP PRN (Reason: Constipation) Qty: 0 RF: 0 vitamin B complex [B Complex-Vitamin B12] 1 EACH tablet 1 tab PO DAILY Qty: 0 RF: 0 diphenhydramine HCl [Benadryl Allergy] 25 mg tablet 25 mg PO PRN PRN (Reason: Allergy Symptoms) Qty: 0 RF: 0 hydrocodone-acetaminophen [Brighton] 5-325 mg tablet 1 tab PO Q12H PRN (Reason: pain) Qty: 10 RF: 0 ondansetron 4 mg tablet,disintegrating 4 mg PO BID-TID PRN (Reason: nausea and vomiting) Qty: 10 RF: 0 oxcarbazepine 300 mg tablet 300 mg PO QPM RF: 0 fluoxetine 20 mg capsule 40 mg PO QPM RF: 0 diazepam 5 mg tablet 5 mg PO TID PRN (Reason: Anxiety) RF: 0 Rexulti 1 mg tablet 1 mg PO DAILY RF: 0 docusate sodium 100 mg capsule 100 mg PO BID Qty: 60 RF: 0 hydromorphone [Dilaudid] 4 mg tablet 4 mg PO Q4-6H MDD 4 tabs PRN (Reason: pain) Qty: 30 RF: 0 pantoprazole [Protonix] 20 mg tablet,delayed release (DR/EC) 20 mg PO DAILY Qty: 30 RF: 2 ondansetron 4 mg tablet,disintegrating 4 mg PO Q6H PRN (Reason: nausea and vomiting) Qty: 30 RF: 0 Referrals: Janie Dupree MD [Primary Care Provider] - Ilia Rockwell MD [Physician] - Jh Torres MD [Physician] -
--- NOTE | 2019-10-22 08:52 | DI.RAD.S_ITS ---
PROCEDURE: XR CHEST 1V INDICATIONS: chest pain TECHNIQUE: One view of the chest was acquired. COMPARISON: None. FINDINGS: Surgical changes and devices: None. Lungs and pleura: Lungs are clear. No pleural effusions or pneumothorax. Mediastinum: Mediastinal contours appear normal. Heart size is normal. Bones and chest wall: No suspicious bony lesions. Overlying soft tissues appear unremarkable. IMPRESSION: No acute disease Dictated by: Jose Rafael Tabor M.D. on 10/22/2019 at 10:10 Approved by: Jose Rafael Tabor M.D. on 10/22/2019 at 10:25
--- NOTE | 2019-10-22 09:42 | PC.NURSE ---
Pt having numbess of left arm.
[2019-10-22 09:49] LABS: Appearance Urine UA CLEAR; Bilirubin Urine UA NEGATIVE (NEGATIVE); Color Urine UA YELLOW; Glucose Urine UA NEGATIVE (Negative); Ketones Urine UA NEGATIVE (NEGATIVE); Leukocyte Esterase Urine UA NEGATIVE (NEGATIVE); Nitrite Urine UA NEGATIVE (Negative); Occult Blood Urine UA 1+ (Negative); Protein Urine UA NEGATIVE (Negative); Urobilinogen Urine UA 0.2 E.U./dL (0.2)
[2019-10-22 09:49] LABS: Add Manual Diff / Slide Review NO; Basophils Absolute Auto 0 /uL (0-100); Basophils Percent Auto 0.7 % (0-2); Eosinophils Absolute Auto 0 /uL (0-450); Eosinophils Percent Auto 0.1 % (2-4); Hematocrit 35.8 % (36-46); Hemoglobin 11.9 g/dL (12.0-16.0); Lymphocytes Absolute Auto 700 /uL (1100-4500); Lymphocytes Percent Auto 10.3 % (25-40); Mean Corpuscular HGB Conc 33.3 % (30-36); Mean Corpuscular Hemoglobin 26.4 PG (26-34); Mean Corpuscular Volume 79.5 fL (80-100); Monocytes Absolute Auto 400 /uL (0-900); Monocytes Percent Auto 5.2 % (3-14); Neutrophils Absolute Auto 5700 /uL (1500-7000); Neutrophils Percent Auto 83.7 % (50-75); Platelet Count 337 X10^3/uL (150-400); Red Cell Distribution Width 15.4 % (11.6-14.8); White Blood Cell Count 6.8 X10^3/uL (4.5-11.0)
--- NOTE | 2019-10-22 09:53 | DI.CT.S_ITS ---
PROCEDURE: CT HEAD/BRAIN WO CON INDICATIONS: acute loss of sensation L arm TECHNIQUE: Noncontrast 4.5 mm thick angled axial sections acquired from the foramen magnum to the vertex, with coronal and sagittal reformats. For radiation dose reduction, the following was used: automated exposure control, adjustment of mA and/or kV according to patient size. COMPARISON: None. FINDINGS: Image quality: Excellent. CSF spaces: Basal cisterns are patent. No extra-axial fluid collections. Ventricles are normal in size and shape. Brain: No midline shift. No intracranial masses or hemorrhage. Sandhu-white matter interface is normal. Skull and face: Calvarium and visualized facial bones are intact, without suspicious lesions. Sinuses: Visualized sinuses and mastoids are clear. IMPRESSION: No acute intracranial process is seen. Dictated by: Andrei Love M.D. on 10/22/2019 at 9:23 Approved by: Andrei Love M.D. on 10/22/2019 at 9:23
[2019-10-22 09:54] LABS: Alanine Aminotransferase 12 IU/L (<35); Albumin Globulin Ratio 1.6 (1.0-2.8); Alkaline Phosphatase 84 U/L (38-126); Aspartate Aminotransferase 29 IU/L (14-36); Bilirubin Total 0.2 mg/dL (0.2-1.3); Blood Urea Nitrogen 9 mg/dL (7-17); Calcium 9.9 mg/dL (8.4-10.2); Carbon Dioxide 27 mmol/L (22-32); Chloride 106 mmol/L (98-107); Estimated Glomerular Filt Rate > 60.0 mL/min (>60); Globulin 3.1 g/dL (1.7-4.1); Glucose 97 mg/dL (70-100); HEMOLYSIS < 15 (0-50); Lipase 66 U/L (23-300); Sodium 141 mmol/L (137-145); Total Protein 8.1 g/dL (6.3-8.2)
[2019-10-22 09:56] LABS: RBC Urine 1-5/HPF (0-5/HPF); Squamous Epithelial Cell Urine 1-5 /HPF (0-5/HPF); WBC Urine 0-1/HPF (0-5/HPF)
[2019-10-22 09:57] LABS: Bacteria Urine Occasional (0-1); Culture Indicated Urine Cult Not Indicated
--- NOTE | 2019-10-22 10:14 | DI.MRI.S_ITS ---
PROCEDURE: MR CERVICAL SPINE WO/W CON INDICATIONS: concern for MS and/or stroke TECHNIQUE: Noncontrast sagittal T1 spin echo and T2 fast spin echo, sagittal STIR, sagittal PD fast spin echo, foraminal oblique sagittal T2 fast spin echo, axial gradient echo or T2 fast spin echo through the cervical spine. After the administration of contrast, sagittal and axial T1 spin echo with fat saturation through the cervical spine. COMPARISON: None. FINDINGS: Image quality: Excellent. Alignment and curvature: There is normal bony alignment. Marrow: Marrow demonstrates normal overall signal. Spinal cord: Visualized spinal cord is normal in size, without white matter lesions. No suspicious intramedullary enhancement. No cerebellar tonsillar herniation. Paraspinous soft tissues: No paravertebral masses or suspicious enhancement. C2-C3: Normal appearance. C3-C4: Mild canal stenosis. Severe right foraminal narrowing with nerve root compression. Moderate to severe left foraminal stenosis with nerve root compression. C4-C5: No canal stenosis. Mild right foraminal narrowing. Moderate left foraminal stenosis with nerve root compression. C5-C6: Normal appearance. C6-C7: Normal appearance. C7-T1: Normal appearance. IMPRESSION: No cord signal changes or enhancement to suggest demyelination Severe right and moderate to severe left C3-C4 foraminal stenosis. Moderate left C4-C5 foraminal stenosis Mild C3-C4 canal narrowing Dictated by: Jose Rafael Tabor M.D. on 10/22/2019 at 16:37 Approved by: Jose Rafael Tabor M.D. on 10/22/2019 at 16:41
--- NOTE | 2019-10-22 10:14 | DI.MRI.S_ITS ---
PROCEDURE: MR HEAD/BRAIN WO/W CON INDICATIONS: concern for MS and/or stroke TECHNIQUE: Noncontrast sagittal and axial FLAIR, axial and coronal T2 fast spin echo, axial VIBE, axial gradient echo, axial diffusion and ADC through the brain. After the administration of contrast, axial and coronal VIBE with fat saturation through the brain. COMPARISON: [facility], CT, CT HEAD/BRAIN WO CON, 10/22/2019, 9:56. FINDINGS: Image quality: Excellent. CSF spaces: Ventricles are normal in size and shape. Basal cisterns are patent. No extra-axial fluid collections. Brain: No intracranial bleeds or mass effects. Sandhu-white matter interface appears intact. No suspicious white matter lesions. No abnormal intracranial enhancement. Diffusion weighted images show no acute ischemic insults. Brainstem appears normal. Normal intravascular flow voids are present. Skull and face: Calvarial marrow signal is normal. Orbits appear normal. Sinuses: Sinuses and mastoids are clear. Small amount of fluid seen within the right petrous apex air cells IMPRESSION: No evidence of acute ischemia. No acute intracranial signal abnormality or enhancement. No white matter signal changes to suggest demyelination. Dictated by: Jose Rafael Tabor M.D. on 10/22/2019 at 16:24 Approved by: Jose Rafael Tabor M.D. on 10/22/2019 at 16:36
[2019-10-22 10:15] LABS: D Dimer < 200 ng/mL (<230)
[2019-10-22 10:31] LABS: Thyroid Stimulating Hormone 0.63 uIU/mL (0.47-4.68)
[2019-10-22] MEDS: KETOROLAC 60 MG/2 ML VIAL 15 MG IV (11:00)
--- NOTE | 2019-10-22 11:04 | PC.NURSE ---
Gerardo ELLIS, taking over for Yenni. Patient in room with MD. Treated pain with Toridol.
[2019-10-22] MEDS: diazePAM 5 MG TABLET PO ×2 (11:09→14:53)
--- NOTE | 2019-10-22 11:32 | PC.NURSE ---
Pt states that she has blurriness in the temporal side of her left eye. She also states that she has stiffness in her neck and numbness in her left arm. She states no sensory changes in her left leg.
--- NOTE | 2019-10-22 12:35 | PC.NURSE ---
Patient in room almost sleeping with lights off. She reports that she is feeling less anxiousness now.
[2019-10-22] MEDS: METOCLOPRAMIDE 10 MG/2 ML INJ IV (14:52)
[2019-10-22] MEDS: ACETAMINOPHEN 325 MG TABLET 975 MG PO (14:53)
[2019-10-22] MEDS: diphenhydrAMINE 50 MG/ML VIAL 25 MG IV (14:56)
[2019-10-22] MEDS: DEXAMETHASONE 10 MG/ML VIAL IV (17:38)
[2019-10-22 23:38] LABS: COVID19 Sendout Not Detected (Not Detect)
== END 2019-10-22 18:21 | disposition home or self-care (01) ==
PROVIDERS: Emergency Provider Emergency Medicine; PCP Family Medicine
DX: M54.12 Radiculopathy, cervical region (principal); G62.9 Polyneuropathy, unspecified; R07.9 Chest pain, unspecified; R50.9 Fever, unspecified
CPT/HCPCS: 36415; 70450; 70553; 71045; 72156; 80053; 81001; 83605; 83690; 84443; 85025; 85379; 87040; 87635; 93005; 96374; 96375; 99285; A9579; J1100; J1200; J1885; J2765

== ENCOUNTER 2019-12-11 15:42 | Emergency (ER) | payer MEDICARE, OTHER, SELFPAY ==
[2019-05-21 16:26] VITALS: BMI 28.0
[2019-12-11 16:01] VITALS: BP 128/60; PULSE 80; RESP 16; TEMP 37; O2SAT 100; BMI 27.8
[2019-12-11 16:43] LABS: Add Manual Diff / Slide Review NO; Basophils Absolute Auto 100 /uL (0-100); Basophils Percent Auto 1.1 % (0-2); Eosinophils Absolute Auto 100 /uL (0-450); Eosinophils Percent Auto 1.5 % (2-4); Hematocrit 32.9 % (36-46); Hemoglobin 10.8 g/dL (12.0-16.0); Lymphocytes Absolute Auto 1800 /uL (1100-4500); Lymphocytes Percent Auto 30.7 % (25-40); Mean Corpuscular HGB Conc 32.9 % (30-36); Mean Corpuscular Hemoglobin 25.3 PG (26-34); Mean Corpuscular Volume 76.8 fL (80-100); Monocytes Absolute Auto 500 /uL (0-900); Monocytes Percent Auto 9.3 % (3-14); Neutrophils Absolute Auto 3300 /uL (1500-7000); Neutrophils Percent Auto 57.4 % (50-75); Platelet Count 288 X10^3/uL (150-400); Red Blood Cell Count 4.29 X10^6/uL (4.0-5.2); Red Cell Distribution Width 15.1 % (11.6-14.8); White Blood Cell Count 5.8 X10^3/uL (4.5-11.0)
[2019-12-11 16:53] LABS: Acetaminophen < 10 ug/mL (10-30); Alanine Aminotransferase 12 IU/L (<35); Albumin 4.7 g/dL (3.5-5.0); Albumin Globulin Ratio 1.9 (1.0-2.8); Alkaline Phosphatase 62 U/L (38-126); Aspartate Aminotransferase 32 IU/L (14-36); BUN Creatinine Ratio 15.7 (6-22); Bilirubin Total 0.2 mg/dL (0.2-1.3); Blood Urea Nitrogen 13 mg/dL (7-17); Calcium 9.6 mg/dL (8.4-10.2); Carbon Dioxide 28 mmol/L (22-32); Chloride 105 mmol/L (98-107); Estimated Glomerular Filt Rate > 60.0 mL/min (>60); Ethanol (ETOH) < 10 mg/dL; Globulin 2.5 g/dL (1.7-4.1); Glucose 91 mg/dL (70-100); HEMOLYSIS < 15 (0-50); Potassium 3.8 mmol/L (3.4-5.1); Salicylate < 1.0 mg/dL (<20); Sodium 140 mmol/L (137-145); Total Protein 7.2 g/dL (6.3-8.2)
[2019-12-11 17:21] LABS: Free T4, Direct Thyroxine 0.83 ng/dL (0.78-2.19)
[2019-12-11 17:35] LABS: Thyroid Stimulating Hormone 0.621 uIU/mL (0.47-4.68)
[2019-12-11 19:13] LABS: UR Morphine/Opiate cutoff 300 Negative (Negative); Ur Creatinine Normal (Normal); Ur Specific Gravity Normal (Normal); Urine Amphetamines Negative (Negative); Urine Barbiturates Negative (Negative); Urine Benzodiazepines Positive (Negative); Urine Cocaine Negative (Negative); Urine MDMA Negative (Negative); Urine Methadone Negative (Negative); Urine Methamphetamines Negative (Negative); Urine Oxycodone Negative (Negative); Urine Phencyclidine Negative (Negative); Urine Tetrahydrocannabinol Positive (Negative); Urine Tricyclic Antidepressant Negative (Negative); Urine pH Normal (Normal)
[2019-12-11 19:15] LABS: RBC Urine 1-5/HPF (0-5/HPF); Squamous Epithelial Cell Urine 1-5 /HPF (0-5/HPF); WBC Urine 5-10/HPF (0-5/HPF)
[2019-12-11 19:16] LABS: Bacteria Urine Few (2-10); Culture Indicated Urine Specimen Cultured
[2019-12-11 19:56] VITALS: BP 133/72; PULSE 81; RESP 16; O2SAT 99
--- NOTE | 2019-12-11 19:57 | ED.PSYCH ---
HPI - Psych <Adele Fofana, TELEGRAPH OFFICE ROUTE AIDE-BC - Last Filed: 12/11/19 21:09> General Chief Complaint: Psychiatric Symptoms Stated Complaint: PSYCH EVAL SENT FROM PROVIDER Time Seen by Provider: 12/11/19 16:56 Source: patient Mode of arrival: Ambulatory Limitations: no limitations History of Present Illness HPI Narrative: The patient is a 34-year-old female former smoker with history of bipolar 1 disorder who presents with a chief complaint of needing a psychiatric evaluation. She states that she has a history of depression, has been titrating a recent psychiatric medications. She has a bed suicidal ideations the other night, denies any current suicidality. She denies any thoughts or desire to hurt herself or anybody else. She denies any hallucinations. She states she is taking 8 psychiatric medications, most recently started on Vraylar which she picked up today. She also takes fluoxetine, Adderall, among other things. She denies any alcohol or drug use. She does see a counselor, Dr. Walton as well as a psychiatric prescriber Epp. She is concerned about her suicidal thoughts the other day, does state that she have a plan to kill herself. She states that her plan is to overdose on heroin, she denies any use of heroin or any history of heroin and does not know where to prescribe it. But if she ?is going to I might as well not have any pain.She has history of multiple psychiatric hospitalizations, borderline personality as well as electroconvulsive therapy. She denies any current thoughts of hurting herself or anybody else. Related Data Home Medications Medication Instructions Recorded Confirmed Mynatal 1 cap PO DAILY #0 07/10/17 11/06/19 cholecalciferol (vitamin D3) 0 unit PO DAILY #0 07/10/17 11/06/19 [Vitamin D3] diphenhydramine HCl [Benadryl 25 mg PO PRN PRN #0 07/10/17 11/06/19 Allergy] docusate sodium 100 mg PO BIDP PRN #0 07/10/17 11/06/19 montelukast [Singulair] 10 mg PO DAILY #0 07/10/17 11/06/19 ondansetron HCl 4 mg PO Q4HP PRN #0 07/10/17 11/06/19 pantoprazole [Protonix] 20 mg PO DAILY #0 07/10/17 11/06/19 simethicone [Gas-X Extra Strength] 125 mg PO PRN PRN #0 07/10/17 11/06/19 vitamin B complex [B 1 tab PO DAILY #0 07/10/17 11/06/19 Complex-Vitamin B12] Rexulti 1 mg PO DAILY 05/21/19 11/06/19 diazepam 5 mg PO TID PRN 05/21/19 11/06/19 fluoxetine 40 mg PO QPM 05/21/19 11/06/19 oxcarbazepine 300 mg PO QPM 05/21/19 11/06/19 Previous Rx's Medication Instructions Recorded docusate sodium 100 mg PO BID #60 cap 05/22/19 hydromorphone [Dilaudid] 4 mg PO Q4-6H PRN #30 tab MDD 4 05/23/19 tabs ondansetron 4 mg PO Q6H PRN #30 tab 05/23/19 pantoprazole [Protonix] 20 mg PO DAILY #30 tab 05/23/19 hydrocodone-acetaminophen [Adkins] 1 tab PO Q12H PRN #10 tab 10/20/19 ondansetron 4 mg PO BID-TID PRN #10 tab 10/20/19 dexamethasone [Decadron] 10 mg PO DAILY #5 tab 10/22/19 Allergies Allergy/AdvReac Type Severity Reaction Status Date / Time aripiprazole [From ABILIFY] Allergy Intermediate Verified 11/06/19 09:26 carbamazepine [From TEGRETOL] Allergy Intermediate Verified 11/06/19 09:26 divalproex sodium Allergy Intermediate Verified 11/06/19 09:26 [From DEPAKOTE] lithium [LITHIUM] Allergy Intermediate Verified 11/06/19 09:26 lurasidone [From LATUDA] Allergy Intermediate Verified 11/06/19 09:26 morphine [MORPHINE] Allergy Intermediate Verified 11/06/19 09:26 sulfamethoxazole Allergy Intermediate Verified 11/06/19 09:26 [From BACTRIM] tramadol [TRAMADOL] Allergy Intermediate Verified 11/06/19 09:26 trimethoprim [From BACTRIM] Allergy Intermediate Verified 11/06/19 09:26 Review of Systems <TYRELL Vidales- - Last Filed: 12/11/19 21:09> Review of Systems Narrative: GENERAL: Denies chills, fatigue, malaise, fever, sweats. HEENT: Denies sinus pain, ear pain, sore throat, difficulty swallowing, dizziness. RESPIRATORY: Denies dyspnea, cough, wheezing, hemoptysis, sputum. CARDIOVASCULAR: Denies chest pain, palpitations, orthopnea, edema, GASTROINTESTINAL: Denies nausea, vomiting, abdominal pain, diarrhea, constipation, melena. : Denies dysuria, frequency, incontinence, hematuria, urinary retention. MUSCULOSKELETAL: denies weakness, joint pain, or bony pain SKIN: Denies rash, skin lesions, or other NEUROLOGIC: Denies weakness, headache, numbness, change in speech, confusion, seizures, incoordination. PSYCHIATRIC: See HPI 12 point review of systems is negative except for those stated above Patient History <KERON Vidales - Last Filed: 12/11/19 21:09> Medical History Bipolar 1 disorder (Acute) delivery delivered (Acute) Depression (Acute) Epilepsy (Acute) History of electroconvulsive therapy (Acute) Surgical History Gastric bypass status for obesity (Acute) History of (Acute) Hx of appendectomy (Acute) Hx of cholecystectomy (Acute) Social History household members: spouse and children Smoking Status: Former smoker alcohol intake: current Smoking Status: Former smoker alcohol intake frequency: holidays/special occasions only Substance Use Type: marijuana Exam <KERON Vidales - Last Filed: 12/11/19 21:09> Narrative Exam Narrative: GENERAL: This is a well-nourished, well-developed patient, in no acute distress HEAD: Atraumatic. Normocephalic. No temporal or scalp tenderness. EYES: Pupils equal round and reactive. Extraocular motions intact. No scleral icterus. No injection or drainage. ENT: Nose without bleeding, purulent drainage or septal hematoma. Throat without erythema, tonsillar hypertrophy or exudate. Uvula midline. Airway patent. NECK: Trachea midline. No JVD or lymphadenopathy. Supple, nontender, no meningeal signs. CARDIOVASCULAR: Regular rate and rhythm RESPIRATORY: No cough. No increased respiratory effort. No accessory muscle use. EXTREMITIES: No clubbing, cyanosis, or edema. No joint tenderness, effusion, or edema noted. BACK: Nontender without deformity or crepitance. No flank tenderness. NEURO: AOx3. Appropriate affect. SKIN: No rash or erythema. Initial Vital Signs Initial Vital Signs: Vital Signs Temperature 98.6 F 12/11/19 16:01 Pulse Rate 80 12/11/19 16:01 Respiratory Rate 16 12/11/19 16:01 Blood Pressure 128/60 12/11/19 16:01 Pulse Oximetry 100 12/11/19 16:01 <Renato Devries DO - Last Filed: 12/11/19 22:28> Initial Vital Signs Initial Vital Signs: Vital Signs Temperature 98.6 F 12/11/19 16:01 Pulse Rate 80 12/11/19 16:01 Respiratory Rate 16 12/11/19 16:01 Blood Pressure 128/60 12/11/19 16:01 Pulse Oximetry 100 12/11/19 16:01 Scores <KERON Vidales - Last Filed: 12/11/19 21:09> GCS Levi coma scale eye opening: Spontaneous [place] coma scale verbal response: Orientated Levi coma scale motor response: Obey commands Levi coma scale total score: 15 Course <KERON Vidales - Last Filed: 12/11/19 21:09> Orders Ordered: ED Orders 12/11/19 15:49 Consult to PATIENT CARE PROVIDER - Inbound Call Center Agent Stat 12/11/19 16:33 Acetaminophen Stat Complete Blood Count AUTO DIFF Stat Comprehensive Metabolic Panel Stat Ethanol (ETOH) Stat Free T4, Direct Thyroxine Stat Salicylate Stat Thyroid Stimulating Hormone Stat 12/11/19 18:59 Urine Culture Stat Urine Drug Screen, Rapid Stat Urine Microscopic Stat Vital Signs Vital signs: Vital Signs - 8 hr 12/11/19 16:01 12/11/19 19:56 12/11/19 20:43 Temperature 98.6 F Pulse Rate 80 81 61 Respiratory Rate 16 16 16 Blood Pressure 128/60 Blood Pressure [Right Arm] 133/72 124/61 Pulse Oximetry 100 99 100 <DO Iron Rosen Last Filed: 12/11/19 22:28> Orders Ordered: ED Orders 12/11/19 15:49 Consult to [facility] - Inbound Call Center Agent Stat 12/11/19 16:33 Acetaminophen Stat Complete Blood Count AUTO DIFF Stat Comprehensive Metabolic Panel Stat Ethanol (ETOH) Stat Free T4, Direct Thyroxine Stat Salicylate Stat Thyroid Stimulating Hormone Stat 12/11/19 18:59 Urine Culture Stat Urine Drug Screen, Rapid Stat Urine Microscopic Stat Vital Signs Vital signs: Vital Signs - 8 hr 12/11/19 16:01 12/11/19 19:56 12/11/19 20:43 Temperature 98.6 F Pulse Rate 80 81 61 Respiratory Rate 16 16 16 Blood Pressure 128/60 Blood Pressure [Right Arm] 133/72 124/61 Pulse Oximetry 100 99 100 MDM - Psych <RHONDA VidalesBC - Last Filed: 12/11/19 21:09> Lab Data Result diagrams: 12/11/19 16:33 12/11/19 16:33 Labs: Lab Results 12/11/19 12/11/19 12/11/19 Range/Units 16:33 16:33 16:33 WBC 5.8 (4.5-11.0) X10^3/uL RBC 4.29 (4.0-5.2) X10^6/uL Hgb 10.8 L (12.0-16.0) g/dL Hct 32.9 L (36-46) % MCV 76.8 L (80-100) fL MCH 25.3 L (26-34) PG MCHC 32.9 (30-36) % RDW 15.1 H (11.6-14.8) % Plt Count 288 (150-400) X10^3/uL Neut % (Auto) 57.4 (50-75) % Lymph % (Auto) 30.7 (25-40) % Nolan % (Auto) 9.3 (3-14) % Eos % (Auto) 1.5 L (2-4) % Baso % (Auto) 1.1 (0-2) % Neut # (Auto) 3300 (4333-7805) /uL Lymph # (Auto) 1800 (2816-5801) /uL Nolan # (Auto) 500 (0-900) /uL Eos # (Auto) 100 (0-450) /uL Baso # (Auto) 100 (0-100) /uL Sodium 140 (137-145) mmol/L Potassium 3.8 (3.4-5.1) mmol/L Chloride 105 (98-107) mmol/L Carbon Dioxide 28 (22-32) mmol/L BUN 13 (7-17) mg/dL Creatinine 0.83 (0.52-1.04) mg/dL Estimated GFR > 60.0 (>60) mL/min BUN/Creatinine Ratio 15.7 (6-22) Glucose 91 (70-100) mg/dL Calcium 9.6 (8.4-10.2) mg/dL Total Bilirubin 0.2 (0.2-1.3) mg/dL AST 32 (14-36) IU/L ALT 12 (<35) IU/L Alkaline Phosphatase 62 (38-126) U/L Total Protein 7.2 (6.3-8.2) g/dL Albumin 4.7 (3.5-5.0) g/dL Globulin 2.5 (1.7-4.1) g/dL Albumin/Globulin Ratio 1.9 (1.0-2.8) TSH 0.621 (0.47-4.68) uIU/mL Free T4 0.83 (0.78-2.19) ng/dL Urine RBC (0-5/HPF) Urine WBC (0-5/HPF) Ur Squamous Epith Cells (0-5/HPF) Urine Bacteria (None) Ur Culture Indicated? Salicylates < 1.0 (<20) mg/dL U Opiates 300ng/mL cut (Negative) Ur Oxycodone Screen (Negative) Urine Methadone Screen (Negative) Acetaminophen < 10 L (10-30) ug/mL Ur Barbiturates Screen (Negative) U Tricyclic Antidepress (Negative) Ur Phencyclidine Scrn (Negative) Ur Amphetamines Screen (Negative) U Methamphetamines Scrn (Negative) Ur MDMA Scrn (Ecstasy) (Negative) U Benzodiazepines Scrn (Negative) Urine Cocaine Screen (Negative) U Marijuana (THC) Screen (Negative) Ethyl Alcohol < 10 ( - 10) mg/dL 12/11/19 12/11/19 Range/Units 18:59 18:59 WBC (4.5-11.0) X10^3/uL RBC (4.0-5.2) X10^6/uL Hgb (12.0-16.0) g/dL Hct (36-46) % MCV (80-100) fL MCH (26-34) PG MCHC (30-36) % RDW (11.6-14.8) % Plt Count (150-400) X10^3/uL Neut % (Auto) (50-75) % Lymph % (Auto) (25-40) % Nolan % (Auto) (3-14) % Eos % (Auto) (2-4) % Baso % (Auto) (0-2) % Neut # (Auto) (2981-3232) /uL Lymph # (Auto) (4552-4375) /uL Nolan # (Auto) (0-900) /uL Eos # (Auto) (0-450) /uL Baso # (Auto) (0-100) /uL Sodium (137-145) mmol/L Potassium (3.4-5.1) mmol/L Chloride (98-107) mmol/L Carbon Dioxide (22-32) mmol/L BUN (7-17) mg/dL Creatinine (0.52-1.04) mg/dL Estimated GFR (>60) mL/min BUN/Creatinine Ratio (6-22) Glucose (70-100) mg/dL Calcium (8.4-10.2) mg/dL Total Bilirubin (0.2-1.3) mg/dL AST (14-36) IU/L ALT (<35) IU/L Alkaline Phosphatase (38-126) U/L Total Protein (6.3-8.2) g/dL Albumin (3.5-5.0) g/dL Globulin (1.7-4.1) g/dL Albumin/Globulin Ratio (1.0-2.8) TSH (0.47-4.68) uIU/mL Free T4 (0.78-2.19) ng/dL Urine RBC 1-5/hpf (0-5/HPF) Urine WBC 5-10/hpf H (0-5/HPF) Ur Squamous Epith Cells 1-5 /hpf (0-5/HPF) Urine Bacteria Few (2-10) H (None) Ur Culture Indicated? Specimen cultured Salicylates (<20) mg/dL U Opiates 300ng/mL cut Negative (Negative) Ur Oxycodone Screen Negative (Negative) Urine Methadone Screen Negative (Negative) Acetaminophen (10-30) ug/mL Ur Barbiturates Screen Negative (Negative) U Tricyclic Antidepress Negative (Negative) Ur Phencyclidine Scrn Negative (Negative) Ur Amphetamines Screen Negative (Negative) U Methamphetamines Scrn Negative (Negative) Ur MDMA Scrn (Ecstasy) Negative (Negative) U Benzodiazepines Scrn Positive H (Negative) Urine Cocaine Screen Negative (Negative) U Marijuana (THC) Screen Positive H (Negative) Ethyl Alcohol ( - 10) mg/dL Point of Care Testing Test Results Negative Urine Dip Bedside Urine Glucose Negative Bedside Urine Bilirubin - Negative Bedside Urine Ketone - Negative Urine Specific Media 1.015 Bedside Urine Occult Blood + Bedside Urine pH 6.0 Bedside Urine Protein - Negative Bedside Urine Urobilinogen - Negative Bedside Urine Nitrite - Negative Bedside Urine Leukocytes +/- 15 Esterase MDM Narrative Medical decision making narrative: The patient is a 34-year-old female who presents for chief complaint of suicidal ideation and wanting a psychiatric evaluation. She denies any current thoughts of hurting herself, is able to contract for safety. She is seen and evaluated by Angelo ANDRE. She considered inpatient voluntary stay at this point time given all of her medication changes, though requested to go home. She is safe and competent to go home. She has a very thorough follow-up including an appointment with her counselor on 12/15, an appoint with her psychiatric prescriber on 12/14. [facility] will call her to check in on 12/12. She is also given the crisis line information as well as ED PATIENT CARE PROVIDER contact information as per the PATIENT CARE PROVIDER. She has no questions or concerns upon discharge and states understanding of return precautions as well as follow-up care. She has been safe and appropriate throughout her stay in the emergency department. <Renato Devries, DO - Last Filed: 12/11/19 22:28> Lab Data Labs: Lab Results 12/11/19 12/11/19 12/11/19 Range/Units 16:33 16:33 16:33 WBC 5.8 (4.5-11.0) X10^3/uL RBC 4.29 (4.0-5.2) X10^6/uL Hgb 10.8 L (12.0-16.0) g/dL Hct 32.9 L (36-46) % MCV 76.8 L (80-100) fL MCH 25.3 L (26-34) PG MCHC 32.9 (30-36) % RDW 15.1 H (11.6-14.8) % Plt Count 288 (150-400) X10^3/uL Neut % (Auto) 57.4 (50-75) % Lymph % (Auto) 30.7 (25-40) % Nolan % (Auto) 9.3 (3-14) % Eos % (Auto) 1.5 L (2-4) % Baso % (Auto) 1.1 (0-2) % Neut # (Auto) 3300 (2958-1684) /uL Lymph # (Auto) 1800 (4275-9779) /uL Nolan # (Auto) 500 (0-900) /uL Eos # (Auto) 100 (0-450) /uL Baso # (Auto) 100 (0-100) /uL Sodium 140 (137-145) mmol/L Potassium 3.8 (3.4-5.1) mmol/L Chloride 105 (98-107) mmol/L Carbon Dioxide 28 (22-32) mmol/L BUN 13 (7-17) mg/dL Creatinine 0.83 (0.52-1.04) mg/dL Estimated GFR > 60.0 (>60) mL/min BUN/Creatinine Ratio 15.7 (6-22) Glucose 91 (70-100) mg/dL Calcium 9.6 (8.4-10.2) mg/dL Total Bilirubin 0.2 (0.2-1.3) mg/dL AST 32 (14-36) IU/L ALT 12 (<35) IU/L Alkaline Phosphatase 62 (38-126) U/L Total Protein 7.2 (6.3-8.2) g/dL Albumin 4.7 (3.5-5.0) g/dL Globulin 2.5 (1.7-4.1) g/dL Albumin/Globulin Ratio 1.9 (1.0-2.8) TSH 0.621 (0.47-4.68) uIU/mL Free T4 0.83 (0.78-2.19) ng/dL Urine RBC (0-5/HPF) Urine WBC (0-5/HPF) Ur Squamous Epith Cells (0-5/HPF) Urine Bacteria (None) Ur Culture Indicated? Salicylates < 1.0 (<20) mg/dL U Opiates 300ng/mL cut (Negative) Ur Oxycodone Screen (Negative) Urine Methadone Screen (Negative) Acetaminophen < 10 L (10-30) ug/mL Ur Barbiturates Screen (Negative) U Tricyclic Antidepress (Negative) Ur Phencyclidine Scrn (Negative) Ur Amphetamines Screen (Negative) U Methamphetamines Scrn (Negative) Ur MDMA Scrn (Ecstasy) (Negative) U Benzodiazepines Scrn (Negative) Urine Cocaine Screen (Negative) U Marijuana (THC) Screen (Negative) Ethyl Alcohol < 10 ( - 10) mg/dL 12/11/19 12/11/19 Range/Units 18:59 18:59 WBC (4.5-11.0) X10^3/uL RBC (4.0-5.2) X10^6/uL Hgb (12.0-16.0) g/dL Hct (36-46) % MCV (80-100) fL MCH (26-34) PG MCHC (30-36) % RDW (11.6-14.8) % Plt Count (150-400) X10^3/uL Neut % (Auto) (50-75) % Lymph % (Auto) (25-40) % Nolan % (Auto) (3-14) % Eos % (Auto) (2-4) % Baso % (Auto) (0-2) % Neut # (Auto) (3731-4682) /uL Lymph # (Auto) (7080-2081) /uL Nolan # (Auto) (0-900) /uL Eos # (Auto) (0-450) /uL Baso # (Auto) (0-100) /uL Sodium (137-145) mmol/L Potassium (3.4-5.1) mmol/L Chloride (98-107) mmol/L Carbon Dioxide (22-32) mmol/L BUN (7-17) mg/dL Creatinine (0.52-1.04) mg/dL Estimated GFR (>60) mL/min BUN/Creatinine Ratio (6-22) Glucose (70-100) mg/dL Calcium (8.4-10.2) mg/dL Total Bilirubin (0.2-1.3) mg/dL AST (14-36) IU/L ALT (<35) IU/L Alkaline Phosphatase (38-126) U/L Total Protein (6.3-8.2) g/dL Albumin (3.5-5.0) g/dL Globulin (1.7-4.1) g/dL Albumin/Globulin Ratio (1.0-2.8) TSH (0.47-4.68) uIU/mL Free T4 (0.78-2.19) ng/dL Urine RBC 1-5/hpf (0-5/HPF) Urine WBC 5-10/hpf H (0-5/HPF) Ur Squamous Epith Cells 1-5 /hpf (0-5/HPF) Urine Bacteria Few (2-10) H (None) Ur Culture Indicated? Specimen cultured Salicylates (<20) mg/dL U Opiates 300ng/mL cut Negative (Negative) Ur Oxycodone Screen Negative (Negative) Urine Methadone Screen Negative (Negative) Acetaminophen (10-30) ug/mL Ur Barbiturates Screen Negative (Negative) U Tricyclic Antidepress Negative (Negative) Ur Phencyclidine Scrn Negative (Negative) Ur Amphetamines Screen Negative (Negative) U Methamphetamines Scrn Negative (Negative) Ur MDMA Scrn (Ecstasy) Negative (Negative) U Benzodiazepines Scrn Positive H (Negative) Urine Cocaine Screen Negative (Negative) U Marijuana (THC) Screen Positive H (Negative) Ethyl Alcohol ( - 10) mg/dL Point of Care Testing Test Results Negative Urine Dip Bedside Urine Glucose Negative Bedside Urine Bilirubin - Negative Bedside Urine Ketone - Negative Urine Specific Media 1.015 Bedside Urine Occult Blood + Bedside Urine pH 6.0 Bedside Urine Protein - Negative Bedside Urine Urobilinogen - Negative Bedside Urine Nitrite - Negative Bedside Urine Leukocytes +/- 15 Esterase Discharge Plan Departure Patient Disposition: Home Clinical Impression: Suicidal ideation, Bipolar 1 disorder Depression Qualifiers: Depression Type: unspecified Qualified Code(s): F32.9 - Major depressive disorder, single episode, unspecified Discharge Date/Time: 12/11/19 20:49 Instructions: DI for Depression -- Adult, DI for Bipolar Disorder, DI for Suicidal Ideation-Adult Activity Restrictions/Additional Instructions: Thank you for trusting us with your care today As I discussed, your always welcome to come back to the emergency department for any acute concerns such as thoughts of hurting herself or anybody else As a reminder, you have an appointment with her counselor on 12/16 19 at 5:00 p.m. Please confirm your appointment with Dr. Borges 09/21/2028 SARAHY will call you to check in on 12/12 between noon and 2:00 p.m. The phone line to the emergency department PATIENT CARE PROVIDER is [phone] The crisis line is [phone] Please also follow-up with primary care provider Prescriptions: No Action pantoprazole [Protonix] 20 MG tablet,delayed release (DR/EC) 20 mg PO DAILY Qty: 0 RF: 0 ondansetron HCl 4 MG tablet 4 mg PO Q4HP PRN (Reason: Nausea) Qty: 0 RF: 0 montelukast [Singulair] 10 MG tablet 10 mg PO DAILY Qty: 0 RF: 0 Mynatal 1 EACH capsule 1 cap PO DAILY Qty: 0 RF: 0 cholecalciferol (vitamin D3) [Vitamin D3] 2,000 unit tablet 0 unit PO DAILY Qty: 0 RF: 0 simethicone [Gas-X Extra Strength] 125 mg Capsule 125 mg PO PRN PRN (Reason: gas) Qty: 0 RF: 0 docusate sodium 100 MG capsule 100 mg PO BIDP PRN (Reason: Constipation) Qty: 0 RF: 0 vitamin B complex [B Complex-Vitamin B12] 1 EACH tablet 1 tab PO DAILY Qty: 0 RF: 0 diphenhydramine HCl [Benadryl Allergy] 25 mg tablet 25 mg PO PRN PRN (Reason: Allergy Symptoms) Qty: 0 RF: 0 hydrocodone-acetaminophen [Adkins] 5-325 mg tablet 1 tab PO Q12H PRN (Reason: pain) Qty: 10 RF: 0 ondansetron 4 mg tablet,disintegrating 4 mg PO BID-TID PRN (Reason: nausea and vomiting) Qty: 10 RF: 0 dexamethasone [Decadron] 4 mg tablet 10 mg PO DAILY Qty: 5 RF: 0 oxcarbazepine 300 mg tablet 300 mg PO QPM RF: 0 fluoxetine 20 mg capsule 40 mg PO QPM RF: 0 diazepam 5 mg tablet 5 mg PO TID PRN (Reason: Anxiety) RF: 0 Rexulti 1 mg tablet 1 mg PO DAILY RF: 0 docusate sodium 100 mg capsule 100 mg PO BID Qty: 60 RF: 0 hydromorphone [Dilaudid] 4 mg tablet 4 mg PO Q4-6H MDD 4 tabs PRN (Reason: pain) Qty: 30 RF: 0 pantoprazole [Protonix] 20 mg tablet,delayed release (DR/EC) 20 mg PO DAILY Qty: 30 RF: 2 ondansetron 4 mg tablet,disintegrating 4 mg PO Q6H PRN (Reason: nausea and vomiting) Qty: 30 RF: 0 Referrals: Janie Dupree MD [Primary Care Provider] - <Renato Devries DO - Last Filed: 12/11/19 22:28> Cosign ED Attending Cosignature Attestation: Dr Devries Co-Sign Statement: I was available for consultation during this patient's emergency department visit. This chart is signed by myself for administrative purposes only. I did not have direct contact with this patient during this visit. They were seen independently by the APC.
--- NOTE | 2019-12-11 20:03 | CM.SWNOTE ---
WING COVERER note/Assessment WING COVERER consult requested for patient. Patient is a 34 y/o female who presents to ED at suggestion of psychologist seeking psych eval. WING COVERER meets with patient and completes assessment (see below). Patient is currently experiencing numerous stressors in home and has recently undergone changes to her medication. WING COVERER and patient discuss options of inpatient hospitalization on a voluntary basis and patient contemplates if this would be best fit for her. WING COVERER calls a few hospitals to check on bed availability, and checks back in with patient. Patient states that she feels that with her psychiatrist appt. on 12/14, counseling appt on 12/15, her home during the evening, and her mother in law currently in house, that she will be able to stay safe. WING COVERER gives patient [facility] crisis line phone and text line, requests provider to put appt times in d/c plan, and asks if patient is open to [facility] follow up. Patient expresses gratitude for additional support. WING COVERER informs provider Adele Fofana, who expresses agreement with plan for d/c to home with outpatient follow up. Pl: Patient to d/c to home with outpatient follow up from [facility], counselor, and psychiatrist. WING COVERER - Endodontics Dentist Assessment WING COVERER - Endodontics Dentist Assessment Start: 12/11/19 18:36 Freq: Status: Active Protocol: Document 12/11/19 18:41 SCOTT (Rec: 12/11/19 19:23 SCOTT [id number]) WING COVERER/Endodontics Dentist Assessment Time Spent with Patient Start date 12/11/19 Visit Start Time 17:15 End date 12/11/19 Visit End Time 18:30 Total time Care Management spent on 75 patient visit-in minutes Mental Health Screening Include Onset, Duration, Intensity Presenting Problem Patient presents to ED today for an evaluation, as requested by a mental health provider. Patient reports experiencing suicide ideation for the first time in over 5 years over the weekend, and reports that thoughts of suicide have crossed her mind since, and that she is worried that they may continue to escalate. Precipitating Event(s) Patient experienced an episode of suicide ideation on Sunday, 12/05. Patient reports that she had told her she wanted a divorce the night before, and also reports that she requested her stay with her during her experience of suicidality. Patient reports that she has been experiencing racing thoughts with differing versions of her own perspective recently, and is often agitated when anyone asks her questions. Patient reports a loss of anson in spending time with her son within the past few months, and states she wants to feel anson while caring for him. Patient report's is in , and they have been told they will be transferred to the [facility], but the time frame for this has shifted multiple times. Patient reports increased stress since her has been present more often due to COVID. Patient has recently changed medication, and has spoken with her psychiatrist multiple times this week due to changes in her stability. Current Behavioral Health Provider(s) Mariel Borges- Psychiatrist- [phone] Facility, Provider, Ph. # [phone] Dr[address] [facility] Patient has diagnosis of Dependency bipolar I, depression. Patient reports that she has attempted suicide 2x previously, once in 2003 and once in 2014. Patient reports she used pills to overdose both times. Patient reports that she does not consume alcohol. Psychiatric Hospitalizations (date(s)/ Patient reported 6 previous location) hospitalizations, all prior to 2014 Support System(s) Patient lives with her , who she describes as supportive in times of crisis but describes a strained relationship with. 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 Patient reports she does not have thoughts of suicide/suicidal dialogue while actively caring for her son. Patient reports having family on the [facility], and describes a strong, immersed relationship with her mother. School/Work Patient is not attending school or working. Patient currently receives income from social security disability due to her diagnosis of Bipolar I. Mental Status Orientation (Person/Place/Time) Oriented x3 Affect slightly euphoric. Incongruent with stated mood. Stable/ normal range. Thought Content - Specify/Describe Patient discussed voices Obsessions, Delusions, Hallucinations during assessment. Patient describes the voices as different conversations with myself and not as others speaking to her. Patient describes a iliana version of herself and a fuck it version of herself, and describes the voices more as internal dialogue than dissociation. Patient brought up multiple times that she was not feeling anson from things that used to bring her anson, and was focused on not feeling anson while caring for her 2 year old son. Patient makes comments I hate my life, I don't know what would happen if [these thoughts] continue, and passive references to suicidal thoughts throughout assessment. Patient reports no current hallucinations, and none observed during assessment. Thought Processes (Qrtgwdx-Vknhcdwu-Emgq Detailed, Logical Awourdkz-Hhkafeeq-Ujklugfsum- Xbnlltikhgkfus-Nojnhpv-Xbitnzpcaxcw- Thought Blocking) Speech (Fwdpdt-Yzij-Tarrlsv-Rapid-Soft- Normal Loud-Pressured) Motor (Zfodey-Cgvlqpzcz-Uint-Other) Normal Insight (Present-Partially Present- Present Impaired) Judgement (Intact-Impaired) Intact Impulse Control (Adequate-Impaired) Adequate Memory (Qbngvguhk-Ewsdnq-Ilojmi, Intact x3 Impaired-Intact) Concentration (Intact-Impaired) Intact Attention (Intact-Impaired) Intact Behavior (Appropriate-Inappropriate) Appropriate. Patient open, calm, and cooperative throughout visit. Risk Assessment Suicidal Ideation (Plan) No Homicidal Ideation (Plan) No Comment Patient states she has had suicidal thoughts, but does not want to or kill herself. Patient reports to nursing staff that she knows how [she] would, and that she would use heroin if she were to commit suicide, but has no hx of heroin use. Patient expresses concern for the feeling of suicide ideation. Intervention Intervention WING COVERER meets with patient. Patient reports recent onset of sucidality and irritability . Patient has had numerous changes of medications recently, [place] a certain date of move, and describes some tension in relationship with . 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 Patient reports this is first onset of suicidality in multiple years, and that she has been engaged in therapy and psychiatry for multiple years and has strong rapport with psychiatrist. Patient and WING COVERER discussed potential inpatient hospitalization, and patient engaged openly in conversation. Patient informs WING COVERER that she does not want to go from one tyrant to another with regards to structure, and was worried this would be the case. WING COVERER called a few hospitals to discuss structure . WING COVERER returned and discussed with patient, who confirmed multiple appointments for early in the the following week, and family supports who are in home all hours of the day who can help her through some of her darkest times. WING COVERER provided phone number for crisis line, and will arrange [facility] check in for patient. Plan RA Plan Patient will d/c to home and follow up with counselor on and psychiatrist on 12/14. Patient has care of and mother in law in home currently, and feels that they can support her through any feelings of suicidality at this time. WING COVERER offers [facility] follow up, and patient accepts . WING COVERER will inform provider of plan for home and have dates and times put in discharge notes. THAI Tran
[2019-12-11 20:43] VITALS: BP 124/61; PULSE 61; RESP 16; O2SAT 100
== END 2019-12-11 20:49 | disposition home or self-care (01) ==
PROVIDERS: Emergency Medicine; Emergency Provider Nurse Practitioner Family; PCP Family Medicine
DX: R45.851 Suicidal ideations (principal); F31.9 Bipolar disorder, unspecified
CPT/HCPCS: 36415; 80053; 80305; 80320; 80329; 81003; 81015; 81025; 84439; 84443; 85025; 87086; 99284; G0480